=== PATIENT | female | born 1945 | race Caucasian/White ===

== ENCOUNTER → 2018-04-13 11:13 | Outpatient (CLI) | payer MEDICARE, OTHER, SELFPAY ==
--- NOTE | 2018-04-13 11:51 | DI.CT.S_ITS ---
PROCEDURE: CT CHEST ABD PEL W CON INDICATIONS: Staging Endometrial adenocarcinoma TECHNIQUE: After the administration of oral and intravenous contrast, 5 mm thick sections acquired from the lung apices to the symphysis. 5 mm coronal and sagittal reformats were performed, with additional 7 mm coronal MIP reformats through the lungs. For radiation dose reduction, the following was used: automated exposure control, adjustment of mA and/or kV according to patient size. COMPARISON: [facility], US, US PELVIC COMPLETE, 04/03/2018, 15:56. [facility], , PELVIC COMPLETE, 06/27/2017, 15:49. FINDINGS: Image quality: Excellent. CHEST: Lungs and pleura: No acute airspace opacities. There is a 7 mm nodule in the lingula (series 3 image 37) No pleural effusions or pneumothorax. Central and peripheral airways appear patent and normal in caliber. Mediastinum: Heart size is normal. No pericardial effusion. No mediastinal or hilar adenopathy by size criteria. Thoracic aorta and central pulmonary arteries are normal in size. Esophagus is normal in caliber. No hiatal hernia. Chest wall: No axillary or supraclavicular adenopathy by size criteria. Thyroid gland is normal. ABDOMEN: Solid organs: There is diffuse hepatic fatty infiltration. Liver is normal in size and enhancement. Gallbladder is surgically removed. Biliary system is non dilated. Pancreas enhances normally. Spleen is normal in size and enhancement. No adrenal nodules. Kidneys demonstrate normal size and enhancement, without hydronephrosis. Peritoneum and bowel: Bowel loops demonstrate normal wall thickness and caliber. No free fluid or air. Nodes and vessels: No retroperitoneal or mesenteric adenopathy by size criteria. Aorta and inferior vena cava are normal in size. Miscellaneous: No ventral hernias. PELVIS: Genitourinary: Bladder wall thickness is normal. Uterus is normal in size. Endometrium is suboptimally visualized but appears thickened. Miscellaneous: No enlarged inguinal lymph nodes. Small normal sized inguinal lymph nodes bilaterally are most likely reactive. Bones: No suspicious bony lesions. No vertebral body compression fractures. IMPRESSION: 1. Endometrium is suboptimally visualized on CT and may be thickened. 2. A 7 mm lung nodule in lingula. Please see enclosed followup recommendation. 3. Hepatic steatosis. Fleischner Society criteria for SOLID lung nodule followup. Nodule size (mm)Low-risk patientHigh-risk patient?4No follow-up neededFollow-up at 12 mo; if no change, no further follow-up>[id number] CT at 12 mo; if no change, no further follow-up needed.Initial follow-up CT at 6-12 mo, then 18-24 mo if no change. >6-8Initial follow-up CT at 6-12 mo, then 18-24 mo if no change. Initial follow-up CT at 3-6 mo, then 9-12 mo and 24 mo if no change. >8Follow-up CT at 3, 9, 24 mo. Or PET and/or biopsy.Same as for low-risk pts. Dictated by: Swapna Saravia M.D. on 04/13/2018 at 17:17 Approved by: Swapna Saravia M.D. on 04/14/2018 at 10:15
[2018-04-13 12:26] LABS: BUN Creatinine Ratio 24.3 (6-22); Blood Urea Nitrogen 17 mg/dL (7-17); Estimated Glomerular Filt Rate > 60.0 mL/min (>60)
[2018-04-13 12:48] LABS: Cancer Antigen 125 11 U/mL (0-35)
== END ==
PROVIDERS: PCP Family Medicine
DX: Z01.818 Encounter for other preprocedural examination (principal); C54.1 Malignant neoplasm of endometrium; Z90.49 Acquired absence of other specified parts of digestive tract; K76.0 Fatty (change of) liver, not elsewhere classified
CPT/HCPCS: 36415; 71260; 74177; 82565; 84520; 86304; Q9967

== ENCOUNTER 2018-06-15 09:13 | Day surgery (SDC) | payer MEDICARE, OTHER, SELFPAY ==
[2018-06-12 14:46] VITALS: BMI 29.7
--- NOTE | 2018-06-15 | DI.RAD.S_ITS ---
PROCEDURE: XR CHEST 1V INDICATIONS: PORT A CATH TECHNIQUE: One view of the chest was acquired. COMPARISON: None. FINDINGS: Surgical changes and devices: None. Lungs and pleura: No pleural effusions or pneumothorax. Lungs are clear. Mediastinum: Mediastinal contours appear normal. Heart size is normal. Bones and chest wall: No suspicious bony lesions. Overlying soft tissues appear unremarkable. IMPRESSION: No acute process. No evidence of portacatheter. Dictated by: Angie Brewer M.D. on 06/15/2018 at 13:00 Approved by: Angie Brewer M.D. on 06/15/2018 at 13:01
[2018-06-15 09:38] VITALS: BMI 26.6
[2018-06-15 09:43] VITALS: BP 169/69; PULSE 56; RESP 16; TEMP 35.8; O2SAT 99
[2018-06-15] MEDS: LACTATED RINGERS 1,000 ML 42 ML IV (09:57)
--- NOTE | 2018-06-15 10:20 | PM.HP.1 ---
History of Present Illness Date Patient Seen: 06/15/18 Time Patient Seen: 10:20 Chief complaint: port a cath [id number] Narrative: Patient is a woman about received chemotherapy for uterine cancer and I was asked to place a port. Patient History Medical History Uterine cancer (Acute) History of hysterectomy (Acute) Ankle pain (Chronic 2011) Chronic cough (Chronic 2011) Diabetes mellitus (Chronic 2003) Chicken pox (Resolved 1947) Kidney stones (Resolved ~1979) Left ulnar fracture (Resolved ~1989) Measles (Resolved ~1951) Migraines (Resolved ~1970) Mumps (Resolved) Pneumonia (Resolved 2002) Glaucoma (Inactive) Surgical History Anesthesia (Resolved) History of appendectomy (Resolved 1984) History of cholecystectomy (Resolved 1984) History of colonoscopy (Resolved 06/07/17) Status post delivery (Resolved 1973) Status post delivery (Resolved 1975) Family & Social History Family History: Reviewed 06/15/18 by Jet Arango MD Social History: household members spouse Tobacco & Substance use: Smoking Status Never smoker Meds Home Medications Medication Instructions Recorded Confirmed Type metformin [Glucophage] 1,000 mg PO BIDCC #360 tab 04/08/16 06/15/18 Rx glyburide 2.5 mg PO BID #60 tab 07/07/16 06/15/18 Rx losartan 50 mg tablet 50 mg PO DAILY 04/03/18 06/15/18 History simvastatin 20 mg PO BEDTIME 05/25/18 06/15/18 History Allergies Allergy/AdvReac Type Severity Reaction Status Date / Time No Known Drug Allergies Allergy Verified 06/15/18 09:34 Review of Systems Review of Systems No cough or cold. No chest pain or heart problems. No seizures or blackouts. No black or bloody bowel movements. Exam Vital Signs (past 8 hours): - 06/15/18 09:43 Temperature 96.5 F L Pulse Rate 56 L Respiratory Rate 16 Blood Pressure 169/69 H Pulse Oximetry 99 Oxygen Delivery Method Room Air Narrative Exam Narrative: Operative no apparent distress. Lungs are clear to auscultation without rales or rhonchi. Heart regular rate rhythm without murmur gallop. No nodes in the neck or supraclavicular areas. Abdomen is soft nontender without masses. Scars from her a robotic procedure noted. Assessment & Plan Plan: Assessment/Plan Narrative: Patient with endometrioid cancer the uterus post hysterectomy and pelvic node dissection for Port-A-Cath. I have discussed the procedure and rationale with her. Risks of bleeding, infection, DVT which could cause arm swelling or pulmonary embolism, lung collapse all discussed with her. She appears to understand and wishes to proceed.
--- NOTE | 2018-06-15 10:25 | PM.PREOP ---
Pre-operative Note Interval Note History & Physical reviewed/Exam performed by Physician: Yes Changes to H&P: No
[2018-06-15] MEDS: CEFAZOLIN 2 GM/100 ML FROZ.PIGGY IV (10:43)
--- NOTE | 2018-06-15 11:05 | SUR.OPER ---
Supine on padded OR bed, head on pillow, arms gel padded and tucked at side, legs uncrossed, safety belt at thigh, tape over blanket over lower legs .
[2018-06-15] MEDS: LIDOCAINE 1% 30 ML INJ INJ (11:06)
[2018-06-15 12:30] VITALS: BP 147/71; PULSE 65; RESP 18; TEMP 36.1; O2SAT 95
[2018-06-15 12:35] VITALS: BP 149/63; PULSE 60; RESP 18; O2SAT 100
[2018-06-15 12:40] VITALS: BP 162/76; PULSE 60; RESP 16; O2SAT 100
[2018-06-15 12:45] VITALS: BP 148/85; PULSE 61; RESP 18; O2SAT 100
[2018-06-15 12:50] VITALS: BP 165/84; PULSE 58; RESP 18; O2SAT 100
--- NOTE | 2018-06-15 13:09 | P.OP_ITS ---
Operative Date/Time/Diagnoses Date of procedure: 06/15/18 Time of procedure: 12:30 Pre-op diagnosis: Uterine cancer Post-op diagnosis: same Procedure & Clinicians Procedure: Attempted placement of Port-A-Cath. Procedure had to be abandoned due to the inability to get a guidewire to pass through into the vein. Please see details below. Same procedure as scheduled: Yes Indications: Chemo Surgeon: Jet Arango Click Yes if Unassisted: Yes Anesthesia Type: General Operative Notes Findings: Unable to pass a guidewire through the internal jugular or the subclavian vein despite excellent blood return Closure Type: primary Specimen(s): none sent Estimated Blood Loss (mL): 30 Blood products transfused: none Procedure in detail: The patient was placed supine on the operating room table and underwent general LMA anesthesia. She was prepped and draped in usual fashion. Local anesthetic was infiltrated a field block fashion beneath the left clavicle. Transverse incision was made and a needle inserted on the 1st attempt into the subclavian vein. Attempt to pass a guidewire and it would not pass. Thinking I just come out of the vein I reinserted it happened multiple times in multiple locations and could not get the guidewire to pass despite good blood return in the needle. I abandoned this approach went to the neck. I infiltrated local anesthetic and made a small transverse incision near the junction of the heads of the sternocleidomastoid muscle using an ultrasound identified the jugular vein and on multiple a occasions aspirated blood and appeared to be in the jugular vein. However he could not pass a guidewire through the needle that it would pass appropriately. I defer low Orange be it seemed to come out the end and stop. I went back to the subclavian 1 last time and again was able to cannulate the vein and pass a guidewire and it appeared to come out into the base of the neck. I could not to go any further further. A attempted to pass and 14 gauge over the wire and the wire and performed a venogram but I was unable to get the catheter to adequately pass under the clavicle. I therefore abandoned the procedure. She will require venogram before attempting anything on the left in the future. I talked to oncology and they will provide IV access so that she can start her chemotherapy and we will order venogram. They will contact the patient regarding her chemotherapy. Complications: none Condition: stable Disposition: PACU Plan for aftercare: Follow-up with Oncology and with me
--- NOTE | 2018-06-15 13:42 | SUR.PHASEII ---
Assumed care from Leia LIU. Nubia LIU from oncology set up future appointment for PICC placement on Tuesday prior to pt's chemo appointment. Pt's felt they would be unable to make appointment, Nubia called back and pt discharged from here and to go to Center to talk to Nubia and make a plan. Operative sites c/d/i. Pt steady when up. Pt left in stable condition.
== END 2018-06-15 13:35 | disposition home or self-care (01) ==
PROVIDERS: PCP Family Medicine; Visit Provider Specialist
PROC: (CPT 36561; principal; 2018-06-15 10:15)
DX: C55 Malignant neoplasm of uterus, part unspecified (principal); Z53.09 Procedure and treatment not carried out because of other contraindication; E11.9 Type 2 diabetes mellitus without complications; Z79.84 Long term (current) use of oral hypoglycemic drugs
CPT/HCPCS: 36561; 71045; 76000; C1788; J0690; J1100; J1644; J2250; J2405; J2704; J3010

== ENCOUNTER → 2018-06-22 09:02 | Outpatient (CLI) | payer MEDICARE, OTHER, SELFPAY ==
--- NOTE | 2018-06-22 09:04 | DI.RAD.S_ITS ---
PROCEDURE: FL GUIDED PICC PLACEMENT INDICATIONS: ENDOMETRIAL ENDOCARCINOMA COMPARISON: None. FINDINGS: PICC was placed by the intravenous therapy team from the right side. Fluoroscopic spot film demonstrates tip of PICC in the lower SVC. IMPRESSION: Tip of PICC lies within the lower SVC. Dictated by: Luigi Madden M.D. on 06/22/2018 at 12:11 Approved by: Luigi Madden M.D. on 06/22/2018 at 12:12
== END ==
PROVIDERS: PCP Family Medicine; Visit Provider Internal Medicine Hematology & Oncology
DX: Z45.2 Encounter for adjustment and management of vascular access device (principal); C54.1 Malignant neoplasm of endometrium
CPT/HCPCS: 36573; 77001

== ENCOUNTER → 2019-06-14 13:40 | Oncology outpatient (ONC) | payer MEDICARE, OTHER, SELFPAY ==
[2018-05-25 13:36] VITALS: BP 132/81; PULSE 71; RESP 18; TEMP 37; O2SAT 100
--- NOTE | 2018-05-25 13:47 | ONC.CONS ---
History of Present Illness - Data of Consult Patient: new to practice Consult date: 05/25/18 Requesting Physician: Constance Courtney MD Primary Care Provider: Carlotta Moreira MD - Consult Narrative Reason for consult: Stage IB endometrioid endometrial adenocarcinoma Narrative: Irene Snell is a 73 year old female. Emma, as she prefers to be called, presented with postmenopausal bleeding. 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 Preoperative CT scan and CA-125 were within normal limits. Patient underwent robotic-assisted hysterectomy, bilateral salpingo-oophorectomy, and bilateral pelvic lymph node dissection. The final pathology showed endometrioid carcinoma, FIGO G3, greatest diameter of 4.5 cm, located at the endometrium of fundus, depth of invasion of myometrial 1.7 cm with myometrial thickness of 2.5 cm, percentage of myometrial invasion 68%, negative for carcinoma at the cervix and the endocervix, no extra-uterine involvement, venous/lymphatic invasion present, no lymph node metastasis (0/16), no para-aortic lymph nodes submitted. AJCC eighth edition staging pT1b pN0 pMx, and FIGO stage IB. Postoperatively, patient was evaluated by Dr. Courtney on 05/11/2018. Dr. Díaz is had a long and in-depth discussion with the patient. Dr. Courtney recommended between 3 and 6 cycles of every 3 week carboplatin and paclitaxel depending on tolerance. The consensus from [facility] Tumor Board was to proceed with 6 cycles with vaginal cuff brachytherapy, but would stop chemo earlier if not tolerated. Dr. Courtney also discussed with the patient about how to prevent neuropathy with consideration for wearing iced gloves and booties during Taxol infusion to help reduce the risk of neuropathy. Dr. Courtney referred the patient to [facility] for evaluation of brachytherapy in between cycle 3 and 4 of chemotherapy. Due to transportation convenience, patient was then referred to [facility] for chemotherapy. Patient reports pain?: No Home Medications and Allergies Home Medications Medication Instructions Recorded Confirmed Type metformin [Glucophage] 1,000 mg PO BIDCC #360 tab 04/08/16 Rx Glucose: Test Strips 0 str BID #200 str 07/07/16 Rx Lancets 0 dev BID #200 07/07/16 Rx glyburide 2.5 mg PO BID #60 tab 07/07/16 Rx losartan 50 mg tablet 50 mg PO DAILY 04/03/18 04/03/18 History simvastatin 20 mg PO SEE INSTRUCTIONS 05/25/18 History Allergies Allergy/AdvReac Type Severity Reaction Status Date / Time No Known Allergies Allergy Uncoded 04/03/18 14:53 Medical History - Medical, Surgical, Family History Medical History: Medical History (Last Updated 04/03/18 @ 10:23 by Chelle Leon) Ankle pain Onset Date: 2011 Chronic cough Onset Date: 2011 Diabetes mellitus Onset Date: 2003 Chicken pox Onset Date: 1947 Kidney stones Onset Date: ~1979 Left ulnar fracture Onset Date: ~1989 Measles Onset Date: ~1951 Migraines Onset Date: ~1970 Mumps Pneumonia Onset Date: 2002 Glaucoma Surgical History: Surgical History (Last Updated 04/03/18 @ 11:15 by Chelle Leon) Anesthesia History of appendectomy Onset Date: 1984 History of cholecystectomy Onset Date: 1984 History of colonoscopy Onset Date: 06/07/17 Status post delivery Onset Date: 1973 Status post delivery Onset Date: 1975 Family History: Family History Father Diabetes mellitus Heart disease Hypertension Stroke Mother Colon cancer Heart disease Sister Age: 71 Mental health problem Stroke Brain aneurysm Heavy smoker Memory changes Nerve pain Grandfather Colon cancer Grandmother No problems noted. Grandfather No problems noted. Grandmother No problems noted. Family/Other No problems noted. - Social History Smoking Status: Never smoker Review of Systems All systems PM: reviewed and no additional remarkable complaints except as stated Exam Vital signs: Last Vital Signs Temp 98.6 F 05/25/18 13:36 Pulse 71 05/25/18 13:36 Resp 18 05/25/18 13:36 BP 132/81 05/25/18 13:36 Pulse Ox 100 05/25/18 13:36 ECOG 1 Narrative: Constitutional: WDWN, NAD, average body habitus, well groomed, pleasant and cooperative, very nervous and anxious. HEENT: NCAT, EOMI, PERRLA, anicteric sclera, no hearing difficulty; oral mucus membrane moist and without ulcers. Neck: Supple, symmetrical, and tracheal midline; No palpable thyromegaly and no palpable lymph nodes. Respiratory: No use of accessory muscles. Clear to auscultation, and no wheezes or rales or rubs. Cardiovascular: Regular rate and rhythm, S1 and S2 normal, no murmurs gallops or rubs. No JVD. No pitting edema of lower extremities. Abdomen: Soft, nontender, non-distended, bowel sounds normal, no palpable organomegaly, no hernia, no palpable masses. Lower extremities: No palpable pedal edema. Lymphatic: no palpable lymph nodes in the neck, axillae, or groins. Musculoskeletal: normal gait and station, no clubbing, no cyanosis, no pitting edema. Skin: no rashes, no ulcers, no petechiae Neurological: Awake and alert and oriented x3. CN II-XII grossly intact. No focal motor or sensory deficit. Psychiatric: Good judgment, good insight, normal affect, normal thought process, cooperative, no depression, very anxious and nervous. Results - Labs Pending. Assessment and Plan (1) Endometrioid adenocarcinoma of uterus Problem details: Presented with postmenopausal bleeding. Diagnosed with endometrioid endometrial adenocarcinoma after endometrial biopsy. Status post robotic-assisted hysterectomy, bilateral salpingo-oophorectomy, and bilateral pelvic lymph node dissection. The final pathology: edometrioid carcinoma, FIGO G3, pT1b pN0 pMx (AJCC 8th ed)/FIGO stage IB. Assessment: Patient came in here today accompanied by his . She is very nervous and anxious. I spent at least 45 min talking with her and her . Both of them asked several questions which I answered to their satisfaction to the best of my knowledge. I explained to the patient that she has a high-grade FIGO stage IB endometrioid carcinoma of the uterus. Because of the high-grade, Dr. Olivares from [facility] recommended chemotherapy with brachytherapy. The consensus from the Tumor Board at also recommended carboplatin and paclitaxel for 6 cycles with brachytherapy in between the third and fourth cycles. Patient and patient's acknowledged the recommendations from the . They also understood that not every patient will be able to complete the full 6 cycles of the chemotherapy. We will try chemotherapy as far as the patient is able to tolerate. Hopefully we will be able to complete a full 6 cycles of chemotherapy. I agree with Dr. Courtney that the chemotherapy may reduce the risk of distant recurrence by at least 50%. Next I talked about some logistics of the chemotherapy. I talked with them that a port is necessary to complete the chemotherapy. I explained to the patient that a port is small device that is put underneath the skin with the tube inserted into the superior vena cava to just above the right atrium but not in the right atrium. It is a safe and easily accessible device and obviate the need for repeated peripheral blood venipuncture.. Patient's mentioned that Dr. Courtney mentioned about the cold gloves and boots for preventing peripheral neuropathy. The have already purchased the glove and boots. I talked with them that I personally do not have the experience with the cold gloves and boots for preventing the peripheral neuropathy. I do not know how effective these devices will be. Theoretically speaking, they should be helpful. But I told them that the cold device sometimes can be very difficult to tolerate. They voiced understanding. Patient has a very strong family history of cancer. His mother was diagnosed with colon cancer and I believe his sister was diagnosed with endometrial cancer. The family history is highly suspicious for possible genetic diseases, for example, Reyes syndrome. I talked with the patient that is part of the recommendation from the [employer]. It is beneficial for their daughter. Patient said that he she has not decided yet on whether she would like to proceed with genetic testing at this moment. They do not think it is a critical issue at present. Plan: 1. Port placement 2. RadOnc follow-up at [facility] as scheduled 3. RTC after port placement to initiate chemotherapy with Carbo/Pac every 3 weeks, CBC, CMP
--- NOTE | 2018-05-25 14:05 | P.CONONC_ITS ---
History of Present Illness - Data of Consult Patient: new to practice Consult date: 05/25/18 Requesting Physician: Constance Courtney MD Primary Care Provider: Carlotta Moreira MD - Consult Narrative Reason for consult: Stage IB endometrioid endometrial adenocarcinoma Narrative: Irene Snell is a 73 year old female. Emma, as she prefers to be called , presented with postmenopausal bleeding. 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 Preoperative CT scan and CA-125 were within normal limits. Patient underwent robotic-assisted hysterectomy, bilateral salpingo-oophorectomy, and bilateral pelvic lymph node dissection. The final pathology showed endometrioid carcinoma , FIGO G3, greatest diameter of 4.5 cm, located at the endometrium of fundus, depth of invasion of myometrial 1.7 cm with myometrial thickness of 2.5 cm, percentage of myometrial invasion 68%, negative for carcinoma at the cervix and the endocervix, no extra-uterine involvement, venous/lymphatic invasion present , no lymph node metastasis (0/16), no para-aortic lymph nodes submitted. AJCC eighth edition staging pT1b pN0 pMx, and FIGO stage IB. Postoperatively, patient was evaluated by Dr. Courtney on 05/11/2018. Dr. Díaz is had a long and in-depth discussion with the patient. Dr. Courtney recommended between 3 and 6 cycles of every 3 week carboplatin and paclitaxel depending on tolerance. The consensus from [facility]necological Oncology Tumor Board was to proceed with 6 cycles with vaginal cuff brachytherapy, but would stop chemo earlier if not tolerated. Dr. Courtney also discussed with the patient about how to prevent neuropathy with consideration for wearing iced gloves and booties during Taxol infusion to help reduce the risk of neuropathy. Dr. Courtney referred the patient to [facility] for evaluation of brachytherapy in between cycle 3 and 4 of chemotherapy. Due to transportation convenience, patient was then referred to [facility] for chemotherapy. Patient reports pain?: No Home Medications and Allergies Home Medications Medication Instructions Recorded Confirmed Type metformin [Glucophage] 1,000 mg PO BIDCC #360 tab 04/08/16 Rx Glucose: Test Strips 0 str BID #200 str 07/07/16 Rx Lancets 0 dev BID #200 07/07/16 Rx glyburide 2.5 mg PO BID #60 tab 07/07/16 Rx losartan 50 mg tablet 50 mg PO DAILY 04/03/18 04/03/18 History simvastatin 20 mg PO SEE INSTRUCTIONS 05/25/18 History Allergies Allergy/AdvReac Type Severity Reaction Status Date / Time No Known Allergies Allergy Uncoded 04/03/18 14:53 Medical History - Medical, Surgical, Family History Medical History: Medical History (Last Updated 04/03/18 @ 10:23 by Chelle Leon) Ankle pain Onset Date: 2011 Chronic cough Onset Date: 2011 Diabetes mellitus Onset Date: 2003 Chicken pox Onset Date: 1947 Kidney stones Onset Date: ~1979 Left ulnar fracture Onset Date: ~1989 Measles Onset Date: ~1951 Migraines Onset Date: ~1970 Mumps Pneumonia Onset Date: 2002 Glaucoma Surgical History: Surgical History (Last Updated 04/03/18 @ 11:15 by Chelle Leon) Anesthesia History of appendectomy Onset Date: 1984 History of cholecystectomy Onset Date: 1984 History of colonoscopy Onset Date: 06/07/17 Status post delivery Onset Date: 1973 Status post delivery Onset Date: 1975 Family History: Family History Father Diabetes mellitus Heart disease Hypertension Stroke Mother Colon cancer Heart disease Sister Age: 71 Mental health problem Stroke Brain aneurysm Heavy smoker Memory changes Nerve pain Grandfather Colon cancer Grandmother No problems noted. Grandfather No problems noted. Grandmother No problems noted. Family/Other No problems noted. - Social History Smoking Status: Never smoker Review of Systems All systems PM: reviewed and no additional remarkable complaints except as stated Exam Vital signs: Last Vital Signs Temp 98.6 F 05/25/18 13:36 Pulse 71 05/25/18 13:36 Resp 18 05/25/18 13:36 BP 132/81 05/25/18 13:36 Pulse Ox 100 05/25/18 13:36 ECOG 1 Narrative: Constitutional: WDWN, NAD, average body habitus, well groomed, pleasant and cooperative, very nervous and anxious. HEENT: NCAT, EOMI, PERRLA, anicteric sclera, no hearing difficulty; oral mucus membrane moist and without ulcers. Neck: Supple, symmetrical, and tracheal midline; No palpable thyromegaly and no palpable lymph nodes. Respiratory: No use of accessory muscles. Clear to auscultation, and no wheezes or rales or rubs. Cardiovascular: Regular rate and rhythm, S1 and S2 normal, no murmurs gallops or rubs. No JVD. No pitting edema of lower extremities. Abdomen: Soft, nontender, non-distended, bowel sounds normal, no palpable organomegaly, no hernia, no palpable masses. Lower extremities: No palpable pedal edema. Lymphatic: no palpable lymph nodes in the neck, axillae, or groins. Musculoskeletal: normal gait and station, no clubbing, no cyanosis, no pitting edema. Skin: no rashes, no ulcers, no petechiae Neurological: Awake and alert and oriented x3. CN II-XII grossly intact. No focal motor or sensory deficit. Psychiatric: Good judgment, good insight, normal affect, normal thought process , cooperative, no depression, very anxious and nervous. Results - Labs Pending. Assessment and Plan (1) Endometrioid adenocarcinoma of uterus Problem details: Presented with postmenopausal bleeding. Diagnosed with endometrioid endometrial adenocarcinoma after endometrial biopsy. Status post robotic-assisted hysterectomy, bilateral salpingo-oophorectomy, and bilateral pelvic lymph node dissection. The final pathology: edometrioid carcinoma, FIGO G3, pT1b pN0 pMx ( AJCC 8th ed)/FIGO stage IB. Assessment: Patient came in here today accompanied by his . She is very nervous and anxious. I spent at least 45 min talking with her and her . Both of them asked several questions which I answered to their satisfaction to the best of my knowledge. I explained to the patient that she has a high-grade FIGO stage IB endometrioid carcinoma of the uterus. Because of the high-grade, Dr. Olivares from [facility] recommended chemotherapy with brachytherapy. The consensus from the Tumor Board at also recommended carboplatin and paclitaxel for 6 cycles with brachytherapy in between the third and fourth cycles. Patient and patient's acknowledged the recommendations from the . They also understood that not every patient will be able to complete the full 6 cycles of the chemotherapy. We will try chemotherapy as far as the patient is able to tolerate. Hopefully we will be able to complete a full 6 cycles of chemotherapy. I agree with Dr. Courtney that the chemotherapy may reduce the risk of distant recurrence by at least 50%. Next I talked about some logistics of the chemotherapy. I talked with them that a port is necessary to complete the chemotherapy. I explained to the patient that a port is small device that is put underneath the skin with the tube inserted into the superior vena cava to just above the right atrium but not in the right atrium. It is a safe and easily accessible device and obviate the need for repeated peripheral blood venipuncture.. Patient's mentioned that Dr. Courtney mentioned about the cold gloves and boots for preventing peripheral neuropathy. The have already purchased the glove and boots. I talked with them that I personally do not have the experience with the cold gloves and boots for preventing the peripheral neuropathy. I do not know how effective these devices will be. Theoretically speaking, they should be helpful. But I told them that the cold device sometimes can be very difficult to tolerate. They voiced understanding. Patient has a very strong family history of cancer. His mother was diagnosed with colon cancer and I believe his sister was diagnosed with endometrial cancer. The family history is highly suspicious for possible genetic diseases, for example, Reyes syndrome. I talked with the patient that is part of the recommendation from the [employer]. It is beneficial for their daughter. Patient said that he she has not decided yet on whether she would like to proceed with genetic testing at this moment. They do not think it is a critical issue at present. Plan: 1. Port placement 2. Rad[facility]c follow-up at [facility] as scheduled 3. RTC after port placement to initiate chemotherapy with Carbo/Pac every 3 weeks, CBC, CMP
--- NOTE | 2018-06-02 15:56 | ONC.SCHED ---
CARBO [id number] AND PACL [id number] [facility] [place]
--- NOTE | 2018-06-07 14:30 | ONC.NAV ---
Late Entry: Visit 06/05/18 Description: Met with pt, per her request, to discuss concerns and questions that she was having re: starting treatment, fears of side-effects, caregiver coping needs, and resources available for support. Completed a medical priority ferry boarding pass and sent to her following this visit. No other needs identified at this time. Plan: Ongoing support and monitoring for adjustment to treatment, resource needs and coping support.
--- NOTE | 2018-06-22 11:18 | PM.CHEMOCOU ---
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 She presents today for chemotherapy teaching also her 1st infusions of carboplatin and Taxol every 3 weeks. - General New Chemotherapy Patient: Yes Treatment Plan Reviewed: yes - Chemotherapy Counseling Chemotherapy Counseling: Chemotherapy Education: Irene Snell provided written information on all topics discussed. Written materials printed from www.[facility].[email or web address] and www.[email or web address].org. Irene was given an overview of cancer and mechanism of action of cancer cells, that cancer is caused by cells that are dividing rapidly, and out of control. Traditional chemotherapy works by targeting the fast dividing cells and killing them. Chemotherapy affecting healthy cells dividing quickly causes many of the side effects (hair follicles, bone marrow, mucus membranes). Overview of blood cell functions of white cells to fight infection, red cells to carry oxygen, and platelets to stop bleeding was discussed, and that when bone marrow is affected by chemo, there is a decrease in production of these cells. Home care of the patient following chemotherapy was discussed. Body fluids will be contaminated for 48 hours following treatment, and any body fluids handled by caregivers should be handled wearing gloves, surfaces need to be cleaned with soap and water, any soiled linens or clothing need to be washed separately in hot water, toilet lid should be closed when flushing, person cleaning the toilet should wear gloves. How chemotherapy is administered by the RN?s in the clinic, that orders are double checked by pharmacy and checked again by two RN?s prior to administration. Nurses wear protective gear to prevent exposure to them of the chemotherapy agents which can also cause cancer. Cancer center information discussed and written hand out provided listing on-call oncologist available weekends and after hours triage R.N. hours and infusion room guide. New patient binder given to Irene, which includes clinic names, phone numbers, clinic information, calendar, cancer glossary, and list of resources. Handout on advanced directives Common side effects of chemotherapy were discussed with self care tips for prevention of complications. Information also provided in writing. These included: Low blood counts (anemia, thrombocytopenia, neutropenia) Hair loss (alopecia) Nausea and vomiting Decreased appetite Loss of fertility Diarrhea Mouth sores Constipation Peripheral neuropathy Chemo brain/cognitive changes Fatigue Instructions on when to call your healthcare team or on-call physician immediately: Fever of 100.4 or higher, chills, any signs of infection Shortness of breath, wheezing, difficulty breathing, closing of throat, swelling of face, hives (signs of possible allergic reaction) Chest pain, fast heart beat or feelings of a different heart rhythm Swelling of an extremity with or without pain signs of stroke Instructions on when to call your healthcare team within the next 24 hours Nausea that interferes with ability to eat and unrelieved with prescribed medication Diarrhea (4-6 episodes in 24 hour period). Unusual bleeding or bruising Black or tarry stools, or blood in your stools Blood in the urine pain or burning with urination Extreme fatigue (unable to perform self-care activities) Mouth sores or sore areas in your mouth Bad headache Dizziness or lightheadedness Large weight gain over a short period of time General self-care tips while undergoing treatment discussed were as follows. Written materials were provided covering in detail and additional self care tips. Drink at least 2-3 quarts (8-10 glasses) of no-caffeinated beverages daily unless you are instructed otherwise and empty your bladder frequently Report any concerning symptoms to your healthcare team Avoid crowds and sick people, wash your hands frequently Use a soft bristled toothbrush, rinse three times a day with 1 tsp baking soda or 1 tsp salt mixed with warm water Avoid any mouthwashes or oral and skin products containing alcohol or fragrances Use electric razors to avoid cutting yourself Avoid contact sports or activities that could cause head injury or bleeding Avoid sun exposure, wear SPF 15 or higher, wear protective clothing Get plenty of rest, meter your activities Maintain good nutrition Avoid alcoholic beverages Attend your scheduled appointments and lab draws Treatment regimen reviewed and medications were discussed with attention to specific side effects and self care for the pt?s treatment regimen which includes [carboplatin and taxol]. Irene was provided with literature regarding [carboplatin and taxol] and common side effects. Additionally, Irene was provided with literature regarding the diagnosis of [endometrial adenocarcinoma]. Irene instructed to read literature at home. Keep a list of questions which we are happy to go over at future visits. For any urgent questions please feel free to call any time.
[2018-06-22 11:30] VITALS: BP 152/75; PULSE 70; RESP 18; TEMP 36.8
[2018-06-22 11:32] LABS: Add Manual Diff / Slide Review NO; Basophils Absolute Auto 100 /uL (0-100); Basophils Percent Auto 1.1 % (0-2); Eosinophils Absolute Auto 200 /uL (0-450); Eosinophils Percent Auto 2.8 % (2-4); Hematocrit 38.6 % (36-46); Hemoglobin 12.9 g/dL (12.0-16.0); Lymphocytes Absolute Auto 2300 /uL (1100-4500); Lymphocytes Percent Auto 33.5 % (25-40); Mean Corpuscular HGB Conc 33.5 % (30-36); Mean Corpuscular Hemoglobin 30.3 PG (26-34); Mean Corpuscular Volume 90.2 fL (80-100); Monocytes Absolute Auto 500 /uL (0-900); Monocytes Percent Auto 6.8 % (3-14); Neutrophils Absolute Auto 3900 /uL (1500-7000); Neutrophils Percent Auto 55.8 % (50-75); Platelet Count 286 X10^3/uL (150-400); Red Blood Cell Count 4.27 X10^6/uL (4.0-5.2); Red Cell Distribution Width 13.1 % (11.6-14.8)
[2018-06-22] MEDS: FAMOTIDINE 20 MG/50 ML PIGGYBACK 200 MG IV (11:32)
[2018-06-22] MEDS: ACETAMINOPHEN 325 MG TABLET 650 MG PO (11:38)
[2018-06-22 11:44] LABS: Alanine Aminotransferase 26 IU/L (9-52); Albumin 4.3 g/dL (3.5-5.0); Albumin Globulin Ratio 1.3 (1.0-2.8); Alkaline Phosphatase 70 U/L (38-126); Aspartate Aminotransferase 26 IU/L (14-36); Bilirubin Total 0.9 mg/dL (0.2-1.3); Blood Urea Nitrogen 21 mg/dL (7-17); Calcium 9.8 mg/dL (8.4-10.2); Carbon Dioxide 23 mmol/L (22-32); Chloride 108 mmol/L (98-107); Estimated Glomerular Filt Rate > 60.0 mL/min (>60); Globulin 3.4 g/dL (1.7-4.1); Glucose 85 mg/dL (80-110); HEMOLYSIS < 15 (0-50); Potassium 4.4 mmol/L (3.4-5.1); Total Protein 7.7 g/dL (6.3-8.2)
[2018-06-22] MEDS: DEXAMETHASONE 20 MG in SODIUM CHLORIDE 0.9% 50 ML 220 ML IV (11:52)
[2018-06-22 11:57] LABS: Sodium 142 mmol/L (137-145)
[2018-06-22] MEDS: ONDANSETRON 16 MG in SODIUM CHLORIDE 0.9% 50 ML 232 ML IV (12:17)
[2018-06-22] MEDS: SODIUM CHLORIDE 0.9% 100 ML 21 ML IV (13:09)
--- NOTE | 2018-06-22 17:18 | PC.NURSE ---
PATIENT COMPLETED TAXOL INFUSION AT 1710. NO COMPLAINTS. DISCHARGED WITH .
[2018-06-23 10:38] VITALS: BP 157/81; PULSE 82; RESP 14; TEMP 36.7; O2SAT 95
[2018-06-23] MEDS: DEXAMETHASONE 12 MG in SODIUM CHLORIDE 0.9% 50 ML 212 ML IV (10:48)
[2018-06-23] MEDS: ONDANSETRON 16 MG in SODIUM CHLORIDE 0.9% 50 ML 232 ML IV (11:17)
--- NOTE | 2018-06-23 11:23 | PC.NURSE ---
11:15: NEAR END OF DEXAMETHASONE PREMED INFUSION PATIENT COMPLAINED OF FACIAL FLUSHING AND SOME LIGHT HEADEDNESS. FACE VISIBLY BLOTCHY. VS: BP 132/70, IL 77, RR 20, O2 SATS 96, TEMP:97.8. REPORT MADE TO TRIAGE NR.RSL AND PATIENT INFORMED THAT THIS IS A NORMAL REACTION WNL TO DEXAMETHASONE. LIGHTHEADEDNESS RESOLVED WITHIN MINUTES. FLUSHING CONTINUING AT THIS TIME.
[2018-06-23] MEDS: FOSAPREPITANT 150 MG in SODIUM CHLORIDE 0.9% 150 ML 300 ML IV (11:39)
[2018-06-23] MEDS: CARBOPLATIN IV (13:23)
[2018-06-23] MEDS: SODIUM CHLORIDE 0.9% IV (13:23)
--- NOTE | 2018-06-26 15:36 | PC.NURSE ---
This pt never received an rx for nausea relief when at home. Left msg she is very nauseated. I would be happy to call in something if you indicated drug, dose, sig, and if any refills. Thank you
--- NOTE | 2018-06-26 16:15 | PC.NURSE ---
pt called to report that she wasnt feeling well. Some chills, mild nausea, and legs feeling rubbery. After speaking with Dr Adam, an Rx for zofran 8mg po was called to [facility] in [place] and order obtained for NS 1000 cc IV 1-2 hrs in am of 06/27 or 06/28. Pt will call to let us know which. At this point she does not know if she has a fever and will obtain a thermometer when her Rx is picked up.
[2018-06-27 10:44] VITALS: BP 120/68; PULSE 85; RESP 16; TEMP 36.4; O2SAT 100
[2018-06-27] MEDS: SODIUM CHLORIDE 0.9% 1,000 ML 1000 ML IV (10:47)
[2018-06-27 11:11] LABS: Add Manual Diff / Slide Review NO; Basophils Absolute Auto 0 /uL (0-100); Basophils Percent Auto 0.4 % (0-2); Eosinophils Absolute Auto 200 /uL (0-450); Eosinophils Percent Auto 3.1 % (2-4); Hematocrit 38.5 % (36-46); Hemoglobin 13.3 g/dL (12.0-16.0); Lymphocytes Absolute Auto 1000 /uL (1100-4500); Lymphocytes Percent Auto 14.7 % (25-40); Mean Corpuscular HGB Conc 34.6 % (30-36); Mean Corpuscular Hemoglobin 30.5 PG (26-34); Mean Corpuscular Volume 88.1 fL (80-100); Monocytes Absolute Auto 100 /uL (0-900); Monocytes Percent Auto 0.9 % (3-14); Neutrophils Absolute Auto 5700 /uL (1500-7000); Neutrophils Percent Auto 80.9 % (50-75); Platelet Count 189 X10^3/uL (150-400); Red Blood Cell Count 4.37 X10^6/uL (4.0-5.2); Red Cell Distribution Width 13.1 % (11.6-14.8); White Blood Cell Count 7.1 X10^3/uL (4.5-11.0)
[2018-06-27 11:29] LABS: Alanine Aminotransferase 24 IU/L (9-52); Albumin 4.1 g/dL (3.5-5.0); Albumin Globulin Ratio 1.3 (1.0-2.8); Alkaline Phosphatase 58 U/L (38-126); Aspartate Aminotransferase 22 IU/L (14-36); BUN Creatinine Ratio 36.3 (6-22); Bilirubin Total 0.9 mg/dL (0.2-1.3); Blood Urea Nitrogen 29 mg/dL (7-17); Calcium 9.4 mg/dL (8.4-10.2); Carbon Dioxide 24 mmol/L (22-32); Chloride 99 mmol/L (98-107); Estimated Glomerular Filt Rate > 60.0 mL/min (>60); Globulin 3.2 g/dL (1.7-4.1); Glucose 177 mg/dL (80-110); HEMOLYSIS < 15 (0-50); Potassium 3.8 mmol/L (3.4-5.1); Sodium 134 mmol/L (137-145); Total Protein 7.3 g/dL (6.3-8.2)
[2018-06-29 14:59] LABS: Add Manual Diff / Slide Review NO; Basophils Absolute Auto 0 /uL (0-100); Basophils Percent Auto 1.1 % (0-2); Eosinophils Absolute Auto 300 /uL (0-450); Hematocrit 36.7 % (36-46); Hemoglobin 12.5 g/dL (12.0-16.0); Lymphocytes Absolute Auto 1300 /uL (1100-4500); Lymphocytes Percent Auto 35.7 % (25-40); Mean Corpuscular Hemoglobin 30.3 PG (26-34); Mean Corpuscular Volume 89.1 fL (80-100); Monocytes Absolute Auto 100 /uL (0-900); Monocytes Percent Auto 1.6 % (3-14); Neutrophils Absolute Auto 1900 /uL (1500-7000); Neutrophils Percent Auto 53.6 % (50-75); Platelet Count 189 X10^3/uL (150-400); Red Blood Cell Count 4.12 X10^6/uL (4.0-5.2); Red Cell Distribution Width 12.9 % (11.6-14.8); White Blood Cell Count 3.6 X10^3/uL (4.5-11.0)
[2018-06-29 15:14] LABS: Alanine Aminotransferase 31 IU/L (9-52); Albumin 3.9 g/dL (3.5-5.0); Albumin Globulin Ratio 1.3 (1.0-2.8); Alkaline Phosphatase 59 U/L (38-126); Aspartate Aminotransferase 29 IU/L (14-36); BUN Creatinine Ratio 38.3 (6-22); Bilirubin Total 0.3 mg/dL (0.2-1.3); Blood Urea Nitrogen 23 mg/dL (7-17); Calcium 9.3 mg/dL (8.4-10.2); Carbon Dioxide 22 mmol/L (22-32); Chloride 105 mmol/L (98-107); Estimated Glomerular Filt Rate > 60.0 mL/min (>60); Globulin 3.1 g/dL (1.7-4.1); Glucose 191 mg/dL (80-110); HEMOLYSIS < 15 (0-50); Potassium 4.1 mmol/L (3.4-5.1); Sodium 138 mmol/L (137-145)
--- NOTE | 2018-06-29 15:53 | ONC.PN ---
PN -Subjective Interval history: Irene Snell is a 73 year old female. Emma, as she prefers to be called, presented with postmenopausal bleeding. 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 Preoperative CT scan and CA-125 were within normal limits. Patient underwent robotic-assisted hysterectomy, bilateral salpingo-oophorectomy, and bilateral pelvic lymph node dissection. The final pathology showed endometrioid carcinoma, FIGO G3, greatest diameter of 4.5 cm, located at the endometrium of fundus, depth of invasion of myometrial 1.7 cm with myometrial thickness of 2.5 cm, percentage of myometrial invasion 68%, negative for carcinoma at the cervix and the endocervix, no extra-uterine involvement, venous/lymphatic invasion present, no lymph node metastasis (0/16), no para-aortic lymph nodes submitted. AJCC eighth edition staging pT1b pN0 pMx, and FIGO stage IB. Postoperatively, patient was evaluated by Dr. Courtney on 05/11/2018. Dr. Díaz is had a long and in-depth discussion with the patient. Dr. Courtney recommended between 3 and 6 cycles of every 3 week carboplatin and paclitaxel depending on tolerance. The consensus from [facility]necological Oncology Tumor Board was to proceed with 6 cycles with vaginal cuff brachytherapy, but would stop chemo earlier if not tolerated. Dr. Courtney also discussed with the patient about how to prevent neuropathy with consideration for wearing iced gloves and booties during Taxol infusion to help reduce the risk of neuropathy. Dr. Courtney referred the patient to [facility] for evaluation of brachytherapy in between cycle 3 and 4 of chemotherapy. Due to transportation convenience, patient was then referred to [facility] for chemotherapy. She started Carboplatin (AUC 5) and Paclitaxel 175 mg/m2 on 06/22/2018. Attempted placement of Port-A-Cath on 06/15/[address] Arango. Procedure had to be abandoned due to the inability to get a guidewire to pass through into the vein. A right sided PICC line was inserted. She presents today (06/29/2018) for scheduled follow up visit. She said that she felt very ache,worse than expected. All her previous surgical incisions are hurting and tightening on day 3-5. She presented here at the time and received NS IV which was helpful. She also took Tylenol that also helped. She said that she feels cold all the time. She reports no appetite, and feels gaggy in the throat with some soreness. She reports no fever, no cough, and no chest pain. She said that she feels weak, and spacey, and confused sometime. She reports no nausea and no vomiting. She has mild constipation. - Patient Self-Reported Symptoms SR Constitution: Weight loss/gain - Additional ROS All systems PM: reviewed and no additional remarkable complaints except as stated Home Medications and Allergies Home Medications Medication Instructions Recorded Confirmed Type metformin [Glucophage] 1,000 mg PO BIDCC #360 tab 04/08/16 06/29/18 Rx glyburide 2.5 mg PO BID #60 tab 07/07/16 06/29/18 Rx losartan 50 mg tablet 50 mg PO DAILY 04/03/18 06/29/18 History simvastatin 20 mg PO BEDTIME 05/25/18 06/29/18 History lidocaine HCl [Lidocaine Viscous] 5 ml MUCOUS MEMBRANE BID-QID PRN 06/29/18 06/29/18 Rx #200 ml Allergies Allergy/AdvReac Type Severity Reaction Status Date / Time No Known Drug Allergies Allergy Verified 06/15/18 09:34 Exam Vital signs: Last Vital Signs Temp 98.3 F 06/29/18 17:10 Pulse 80 06/29/18 17:10 Resp 19 06/29/18 17:10 BP 128/81 06/29/18 17:10 Pulse Ox 100 06/29/18 17:10 ECOG 1 Narrative: Constitutional: WDWN, NAD, average body habitus, well groomed, pleasant and cooperative, very nervous and anxious. HEENT: NCAT, EOMI, PERRLA, anicteric sclera, no hearing difficulty; there is a sore at the left posterior oral mucosa anterior to tonsil Neck: Supple, symmetrical, and tracheal midline; No palpable thyromegaly and no palpable lymph nodes. Respiratory: No use of accessory muscles. Clear to auscultation, and no wheezes or rales or rubs. Cardiovascular: Regular rate and rhythm, S1 and S2 normal, no murmurs gallops or rubs. Abdomen: Soft, nontender, non-distended, bowel sounds normal, no palpable organomegaly, no hernia, no palpable masses. Lower extremities: No palpable pedal edema. Lymphatic: no palpable lymph nodes in the neck, axillae, or groins. Musculoskeletal: normal gait and station, no clubbing, no cyanosis, no pitting edema. Skin: no rashes, no ulcers, no petechiae Neurological: Awake and alert and oriented x3. CN II-XII grossly intact. No focal motor or sensory deficit. Psychiatric: Good judgment, good insight, normal affect, normal thought process, cooperative, no depression, very anxious and nervous. Results - Labs Laboratory Last Values WBC 3.6 X10^3/uL (4.5-11.0) L 06/29/18 14:51 RBC 4.12 X10^6/uL (4.0-5.2) 06/29/18 14:51 Hgb 12.5 g/dL (12.0-16.0) 06/29/18 14:51 Hct 36.7 % (36-46) 06/29/18 14:51 MCV 89.1 fL (80-100) 06/29/18 14:51 MCH 30.3 PG (26-34) 06/29/18 14:51 MCHC 34.0 % (30-36) 06/29/18 14:51 RDW 12.9 % (11.6-14.8) 06/29/18 14:51 Plt Count 189 X10^3/uL (150-400) 06/29/18 14:51 Neut % (Auto) 53.6 % (50-75) 06/29/18 14:51 Lymph % (Auto) 35.7 % (25-40) 06/29/18 14:51 Randolph % (Auto) 1.6 % (3-14) L 06/29/18 14:51 Eos % (Auto) 8.0 % (2-4) H 06/29/18 14:51 Baso % (Auto) 1.1 % (0-2) 06/29/18 14:51 Neut # (Auto) 1900 /uL (1065-1886) 06/29/18 14:51 Lymph # (Auto) 1300 /uL (4914-6884) 06/29/18 14:51 Randolph # (Auto) 100 /uL (0-900) 06/29/18 14:51 Eos # (Auto) 300 /uL (0-450) 06/29/18 14:51 Baso # (Auto) 0 /uL (0-100) 06/29/18 14:51 Sodium 138 mmol/L (137-145) 06/29/18 14:51 Potassium 4.1 mmol/L (3.4-5.1) 06/29/18 14:51 Chloride 105 mmol/L (98-107) 06/29/18 14:51 Carbon Dioxide 22 mmol/L (22-32) 06/29/18 14:51 BUN 23 mg/dL (7-17) H 06/29/18 14:51 Creatinine 0.60 mg/dL (0.52-1.04) 06/29/18 14:51 Estimated GFR > 60.0 mL/min (>60) 06/29/18 14:51 BUN/Creatinine Ratio 38.3 (6-22) H 06/29/18 14:51 Glucose 191 mg/dL (80-110) H 06/29/18 14:51 Calcium 9.3 mg/dL (8.4-10.2) 06/29/18 14:51 Total Bilirubin 0.3 mg/dL (0.2-1.3) 06/29/18 14:51 AST 29 IU/L (14-36) 06/29/18 14:51 ALT 31 IU/L (9-52) 06/29/18 14:51 Alkaline Phosphatase 59 U/L (38-126) 06/29/18 14:51 Total Protein 7.0 g/dL (6.3-8.2) 06/29/18 14:51 Albumin 3.9 g/dL (3.5-5.0) 06/29/18 14:51 Globulin 3.1 g/dL (1.7-4.1) 06/29/18 14:51 Albumin/Globulin Ratio 1.3 (1.0-2.8) 06/29/18 14:51 Assessment and Plan (1) Endometrioid adenocarcinoma of uterus Problem details: Presented with postmenopausal bleeding. Diagnosed with endometrioid endometrial adenocarcinoma after endometrial biopsy. Status post robotic-assisted hysterectomy, bilateral salpingo-oophorectomy, and bilateral pelvic lymph node dissection. The final pathology: edometrioid carcinoma, FIGO G3, pT1b pN0 pMx (AJCC 8th ed)/FIGO stage IB. Assessment: Carboplatin AUC 2, paclitaxel 175 mg/m2, [id number], C1D1: 06/22/2018, plan for 6 cycles. It is day 7 today. She apparently has developed mild (grade 1) oral mucositis. No leukopenia. She did not receive Filgrastim. Plan: Lidocaine viscous twice to 4 times a day on an as needed basis. Come back in 1 week recheck CBC CMP. I talked with the patient that I am anticipating that the CBC will continue to decrease during the next week. I encouraged the patient to use salt water to rinse the mouth. (2) Oral mucositis See above discussion.
[2018-06-29 17:10] VITALS: BP 128/81; PULSE 80; RESP 19; TEMP 36.8; O2SAT 100
[2018-07-07 10:05] LABS: Alanine Aminotransferase 32 IU/L (9-52); Albumin 4.1 g/dL (3.5-5.0); Albumin Globulin Ratio 1.4 (1.0-2.8); Alkaline Phosphatase 64 U/L (38-126); Aspartate Aminotransferase 23 IU/L (14-36); Bilirubin Total 0.3 mg/dL (0.2-1.3); Blood Urea Nitrogen 20 mg/dL (7-17); Calcium 9.3 mg/dL (8.4-10.2); Carbon Dioxide 22 mmol/L (22-32); Chloride 106 mmol/L (98-107); Estimated Glomerular Filt Rate > 60.0 mL/min (>60); Glucose 151 mg/dL (80-110); HEMOLYSIS < 15 (0-50); Sodium 140 mmol/L (137-145); Total Protein 7.1 g/dL (6.3-8.2)
[2018-07-07 10:21] VITALS: BP 160/77; PULSE 74; RESP 19; TEMP 36.6; O2SAT 100
[2018-07-07 10:21] LABS: Hematocrit 41.4 % (36-46); Mean Corpuscular HGB Conc 33.8 % (30-36); Mean Corpuscular Hemoglobin 30.3 PG (26-34); Mean Corpuscular Volume 89.6 fL (80-100); Platelet Count 215 X10^3/uL (150-400); Red Blood Cell Count 4.62 X10^6/uL (4.0-5.2); Red Cell Distribution Width 12.8 % (11.6-14.8); White Blood Cell Count 2.4 X10^3/uL (4.5-11.0)
[2018-07-07 10:26] LABS: Add Manual Diff / Slide Review YES
[2018-07-07 11:00] LABS: Neutrophils Absolute Manual 552 /uL (3000-5900); Nucleated Red Blood Cells 1 #/Diff; Total Cells Counted 100
[2018-07-07 11:01] LABS: Tear Drop Cells 1+
[2018-07-07 11:02] LABS: Anisocytosis 1+; Polychromasia 1+
--- NOTE | 2018-07-07 11:35 | ONC.PN ---
PN -Subjective Interval history: Irene Snell is a 73 year old female here for scheduled follow up visit. She said she feels somewhat tired. But no fever and no chills. Patient does have some sore throat. She has not received the lidocaine viscous yet. Patient denies any shortness of breath or chest pain. She denies any abdominal pain diarrhea or constipation. Oncology History Emma, as she prefers to be called, presented with postmenopausal bleeding. 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 Preoperative CT scan and CA-125 were within normal limits. Patient underwent robotic-assisted hysterectomy, bilateral salpingo-oophorectomy, and bilateral pelvic lymph node dissection. The final pathology showed endometrioid carcinoma, FIGO G3, greatest diameter of 4.5 cm, located at the endometrium of fundus, depth of invasion of myometrial 1.7 cm with myometrial thickness of 2.5 cm, percentage of myometrial invasion 68%, negative for carcinoma at the cervix and the endocervix, no extra-uterine involvement, venous/lymphatic invasion present, no lymph node metastasis (0/16), no para-aortic lymph nodes submitted. AJCC eighth edition staging pT1b pN0 pMx, and FIGO stage IB. Postoperatively, patient was evaluated by Dr. Courtney on 05/11/2018. Dr. Díaz is had a long and in-depth discussion with the patient. Dr. Courtney recommended between 3 and 6 cycles of every 3 week carboplatin and paclitaxel depending on tolerance. The consensus from [facility] Gynecological Oncology Tumor Board was to proceed with 6 cycles with vaginal cuff brachytherapy, but would stop chemo earlier if not tolerated. Dr. Courtney also discussed with the patient about how to prevent neuropathy with consideration for wearing iced gloves and booties during Taxol infusion to help reduce the risk of neuropathy. Dr. Courtney referred the patient to [facility] for evaluation of brachytherapy in between cycle 3 and 4 of chemotherapy. Due to transportation convenience, patient was then referred to [facility] for chemotherapy. She started Carboplatin (AUC 5) and Paclitaxel 175 mg/m2 on 06/22/2018. Attempted placement of Port-A-Cath on 06/15/[address] Arango. Procedure had to be abandoned due to the inability to get a guidewire to pass through into the vein. A right sided PICC line was inserted. She presents today (06/29/2018) for scheduled follow up visit. She said that she felt very ache,worse than expected. All her previous surgical incisions are hurting and tightening on day 3-5. She presented here at the time and received NS IV which was helpful. She also took Tylenol that also helped. She said that she feels cold all the time. She reports no appetite, and feels gaggy in the throat with some soreness. She reports no fever, no cough, and no chest pain. She said that she feels weak, and spacey, and confused sometime. She reports no nausea and no vomiting. She has mild constipation. - Patient Self-Reported Symptoms SR Constitution: Weight loss/gain SR ears, nose, mouth, throat issues: Changes in taste SR Skin issues: Skin rash or itching SR Gastrointestinal issues: Poor or no appetite, Change in bowel pattern, Nausea SR Musculoskeletal issues: Cold hands or feet SR Neuro issues: Headache, Tremors or shaking - Additional ROS All systems PM: reviewed and no additional remarkable complaints except as stated Home Medications and Allergies Home Medications Medication Instructions Recorded Confirmed Type metformin [Glucophage] 1,000 mg PO BIDCC #360 tab 04/08/16 06/29/18 Rx glyburide 2.5 mg PO BID #60 tab 07/07/16 06/29/18 Rx losartan 50 mg tablet 50 mg PO DAILY 04/03/18 06/29/18 History simvastatin 20 mg PO BEDTIME 05/25/18 06/29/18 History lidocaine HCl [Lidocaine Viscous] 5 ml MUCOUS MEMBRANE BID-QID PRN 06/29/18 06/29/18 Rx #200 ml acetaminophen [Tylenol] 325 mg PO Q6H PRN 07/07/18 07/07/18 History Allergies Allergy/AdvReac Type Severity Reaction Status Date / Time No Known Drug Allergies Allergy Verified 06/15/18 09:34 Exam Vital signs: Last Vital Signs Temp 97.9 F 07/07/18 10:21 Pulse 74 07/07/18 10:21 Resp 19 07/07/18 10:21 BP 160/77 H 07/07/18 10:21 Pulse Ox 100 07/07/18 10:21 ECOG 1 Narrative: Constitutional: WDWN, NAD, average body habitus, well groomed, pleasant and cooperative, very nervous and anxious. HEENT: NCAT, EOMI, PERRLA, anicteric sclera, no hearing difficulty; there is a sore at the left posterior oral mucosa anterior to tonsil Neck: Supple, symmetrical, and tracheal midline; No palpable thyromegaly and no palpable lymph nodes. Respiratory: No use of accessory muscles. Clear to auscultation, and no wheezes or rales or rubs. Cardiovascular: Regular rate and rhythm, S1 and S2 normal, no murmurs gallops or rubs. Abdomen: Soft, nontender, non-distended, bowel sounds normal, no palpable organomegaly, no hernia, no palpable masses. Lower extremities: No palpable pedal edema. Lymphatic: no palpable lymph nodes in the neck, axillae, or groins. Musculoskeletal: normal gait and station, no clubbing, no cyanosis, no pitting edema. Skin: no rashes, no ulcers, no petechiae Neurological: Awake and alert and oriented x3. CN II-XII grossly intact. No focal motor or sensory deficit. Psychiatric: Good judgment, good insight, normal affect, normal thought process, cooperative, no depression, very anxious and nervous. Results - Labs Laboratory Last Values WBC 2.4 X10^3/uL (4.5-11.0) L 07/07/18 09:45 RBC 4.62 X10^6/uL (4.0-5.2) 07/07/18 09:45 Hgb 14.0 g/dL (12.0-16.0) 07/07/18 09:45 Hct 41.4 % (36-46) 07/07/18 09:45 MCV 89.6 fL (80-100) 07/07/18 09:45 MCH 30.3 PG (26-34) 07/07/18 09:45 MCHC 33.8 % (30-36) 07/07/18 09:45 RDW 12.8 % (11.6-14.8) 07/07/18 09:45 Plt Count 215 X10^3/uL (150-400) 07/07/18 09:45 Neut % (Auto) Not Reportable 07/07/18 09:45 Lymph % (Auto) Not Reportable 07/07/18 09:45 Camp % (Auto) Not Reportable 07/07/18 09:45 Eos % (Auto) Not Reportable 07/07/18 09:45 Baso % (Auto) Not Reportable 07/07/18 09:45 Neut # (Auto) 1900 /uL (6548-1734) 06/29/18 14:51 Lymph # (Auto) Not Reportable 07/07/18 09:45 Camp # (Auto) Not Reportable 07/07/18 09:45 Eos # (Auto) 300 /uL (0-450) 06/29/18 14:51 Baso # (Auto) Not Reportable 07/07/18 09:45 Total Counted 100 07/07/18 09:45 Seg Neutrophils % 22.0 % (38-70) L 07/07/18 09:45 Band Neutrophils % 1.0 % (3-7) L 07/07/18 09:45 Lymphocytes % (Manual) 62.0 % (25-45) H 07/07/18 09:45 Monocytes % (Manual) 10.0 % (2-11) 07/07/18 09:45 Eosinophils % (Manual) 4.0 % (2-4) 07/07/18 09:45 Basophils % (Manual) 1.0 % (0-1) 07/07/18 09:45 Neutrophils # (Manual) 552 /uL (7741-9656) L 07/07/18 09:45 Nucleated RBCs 1 #/Diff (-0) H 07/07/18 09:45 RBC Morphology See below 07/07/18 09:45 Polychromasia 1+ H 07/07/18 09:45 Anisocytosis 1+ H 07/07/18 09:45 Tear Drop Cells 1+ H 07/07/18 09:45 Sodium 140 mmol/L (137-145) 07/07/18 09:45 Potassium 4.0 mmol/L (3.4-5.1) 07/07/18 09:45 Chloride 106 mmol/L (98-107) 07/07/18 09:45 Carbon Dioxide 22 mmol/L (22-32) 07/07/18 09:45 BUN 20 mg/dL (7-17) H 07/07/18 09:45 Creatinine 0.50 mg/dL (0.52-1.04) L 07/07/18 09:45 Estimated GFR > 60.0 mL/min (>60) 07/07/18 09:45 BUN/Creatinine Ratio 40.0 (6-22) H 07/07/18 09:45 Glucose 151 mg/dL (80-110) H 07/07/18 09:45 Calcium 9.3 mg/dL (8.4-10.2) 07/07/18 09:45 Total Bilirubin 0.3 mg/dL (0.2-1.3) 07/07/18 09:45 AST 23 IU/L (14-36) 07/07/18 09:45 ALT 32 IU/L (9-52) 07/07/18 09:45 Alkaline Phosphatase 64 U/L (38-126) 07/07/18 09:45 Total Protein 7.1 g/dL (6.3-8.2) 07/07/18 09:45 Albumin 4.1 g/dL (3.5-5.0) 07/07/18 09:45 Globulin 3.0 g/dL (1.7-4.1) 07/07/18 09:45 Albumin/Globulin Ratio 1.4 (1.0-2.8) 07/07/18 09:45 Assessment and Plan (1) Endometrioid adenocarcinoma of uterus Problem details: Presented with postmenopausal bleeding. Diagnosed with endometrioid endometrial adenocarcinoma after endometrial biopsy. Status post robotic-assisted hysterectomy, bilateral salpingo-oophorectomy, and bilateral pelvic lymph node dissection. The final pathology: edometrioid carcinoma, FIGO G3, pT1b pN0 pMx (AJCC 8th ed)/FIGO stage IB. Assessment: She is now undergoing adjuvant chemotherapy with Carboplatin (AUC 5), Paclitaxel 175 mg/m2, [id number]. C1D1 was 06/22/2018.The plan is 6 cycles. I reviewed the laboratory tests with the patient. Patient clearly has developed declining absolute neutropenia/leukopenia. Clinically there is no evidence of fever or chills or infection. I talked with the patient that I will provide prophylactic Levaquin for the next 1-2 weeks. I will have the patient to see Paloma next to repeat blood work. Plan: 1. Levaquin 500 mg daily x 14 days 2. RTC in one week, see ARTIST CONSULTANT Paloma, repeat CBC, CMP 3. RTC 07/17/2018, cycle 2#, with neulasta support, CBC, CMP (2) Chemotherapy induced neutropenia Assessment and Plan: Related to chemotherapy. Levaquin 500 mg daily x 14 days. CBC, CMP in one week, see ARTIST CONSULTANT Paloma. I have instructed patient to call or go to ER if high fever or chills.
[2018-07-14 09:21] LABS: Add Manual Diff / Slide Review NO; Basophils Absolute Auto 0 /uL (0-100); Basophils Percent Auto 0.5 % (0-2); Eosinophils Absolute Auto 100 /uL (0-450); Eosinophils Percent Auto 1.5 % (2-4); Hematocrit 36.1 % (36-46); Hemoglobin 12.4 g/dL (12.0-16.0); Lymphocytes Absolute Auto 2100 /uL (1100-4500); Lymphocytes Percent Auto 40.1 % (25-40); Mean Corpuscular HGB Conc 34.4 % (30-36); Mean Corpuscular Hemoglobin 30.5 PG (26-34); Mean Corpuscular Volume 88.9 fL (80-100); Monocytes Absolute Auto 600 /uL (0-900); Neutrophils Absolute Auto 2500 /uL (1500-7000); Neutrophils Percent Auto 46.9 % (50-75); Platelet Count 235 X10^3/uL (150-400); Red Blood Cell Count 4.05 X10^6/uL (4.0-5.2); Red Cell Distribution Width 13.6 % (11.6-14.8); White Blood Cell Count 5.3 X10^3/uL (4.5-11.0)
[2018-07-14 09:36] VITALS: BP 114/71; PULSE 72; RESP 16; TEMP 36.6; O2SAT 97
[2018-07-14 09:38] LABS: Alanine Aminotransferase 28 IU/L (9-52); Albumin 4.1 g/dL (3.5-5.0); Albumin Globulin Ratio 1.3 (1.0-2.8); Alkaline Phosphatase 61 U/L (38-126); Aspartate Aminotransferase 30 IU/L (14-36); BUN Creatinine Ratio 32.5 (6-22); Bilirubin Total 0.4 mg/dL (0.2-1.3); Blood Urea Nitrogen 26 mg/dL (7-17); Calcium 9.4 mg/dL (8.4-10.2); Carbon Dioxide 24 mmol/L (22-32); Chloride 106 mmol/L (98-107); Estimated Glomerular Filt Rate > 60.0 mL/min (>60); Globulin 3.2 g/dL (1.7-4.1); Glucose 93 mg/dL (80-110); HEMOLYSIS 25 (0-50); Potassium 4.5 mmol/L (3.4-5.1); Sodium 139 mmol/L (137-145); Total Protein 7.3 g/dL (6.3-8.2)
--- NOTE | 2018-07-14 10:13 | ONC.APRN.PN ---
PN -Subjective Interval history: Irene Snell is a 73 year old female here for scheduled follow up visit. She carries a diagnosis of endometrioid adenocarcinoma of the uterus, FIGO stage IB. Currently receiving treatment in the form of every 3 week carboplatin and paclitaxel. She recently completed cycle 1 Jun 22 2018, she then returned 07/07/2018 for a scheduled follow up visit with Oncologist Gera at which time she was found to be neutropenic with a WBC of 2.4 neutrophils 552. She was provided with prophylactic levofloxacin 500 mg. She presents today for routine scheduled triage. States she is feeling better than her previous visit. Her pain has improved. She does have loss of appetite however she states ?I am doing the best I can snacking throughout the day?. She said she feels somewhat tired. Denies fever and no chills. Denies cough. No new pain, no new lumps or bumps. No new headache. No issue with bladder or bowel. Oncology History Emma, as she prefers to be called, presented with postmenopausal bleeding. 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 Preoperative CT scan and CA-125 were within normal limits. Patient underwent robotic-assisted hysterectomy, bilateral salpingo-oophorectomy, and bilateral pelvic lymph node dissection. The final pathology showed endometrioid carcinoma, FIGO G3, greatest diameter of 4.5 cm, located at the endometrium of fundus, depth of invasion of myometrial 1.7 cm with myometrial thickness of 2.5 cm, percentage of myometrial invasion 68%, negative for carcinoma at the cervix and the endocervix, no extra-uterine involvement, venous/lymphatic invasion present, no lymph node metastasis (0/16), no para-aortic lymph nodes submitted. AJCC eighth edition staging pT1b pN0 pMx, and FIGO stage IB. Postoperatively, patient was evaluated by Dr. Courtney on 05/11/2018. Dr. Díaz is had a long and in-depth discussion with the patient. Dr. Courtney recommended between 3 and 6 cycles of every 3 week carboplatin and paclitaxel depending on tolerance. The consensus from [facility] Gynecological Oncology Tumor Board was to proceed with 6 cycles with vaginal cuff brachytherapy, but would stop chemo earlier if not tolerated. Dr. Courtney also discussed with the patient about how to prevent neuropathy with consideration for wearing iced gloves and booties during Taxol infusion to help reduce the risk of neuropathy. Dr. Courtney referred the patient to [facility] for evaluation of brachytherapy in between cycle 3 and 4 of chemotherapy. Due to transportation convenience, patient was then referred to [facility] for chemotherapy. She started Carboplatin (AUC 5) and Paclitaxel 175 mg/m2 on 06/22/2018. Attempted placement of Port-A-Cath on 06/15/[address] Arango. Procedure had to be abandoned due to the inability to get a guidewire to pass through into the vein. A right sided PICC line was inserted. She presented (06/29/2018) for scheduled follow up visit. She said that she felt very ache,worse than expected. All her previous surgical incisions are hurting and tightening on day 3-5. She presented here at the time and received NS IV which was helpful. She also took Tylenol that also helped. She said that she feels cold all the time. She reports no appetite, and feels gaggy in the throat with some soreness. She reports no fever, no cough, and no chest pain. She said that she feels weak, and spacey, and confused sometime. She reports no nausea and no vomiting. She has mild constipation. - Patient Self-Reported Symptoms SR Constitution: Weight loss/gain SR ears, nose, mouth, throat issues: Changes in taste SR Skin issues: Hair loss or scalp prob SR Gastrointestinal issues: Poor or no appetite SR Musculoskeletal issues: Cold hands or feet SR Neuro issues: Tremors or shaking Home Medications and Allergies Home Medications Medication Instructions Recorded Confirmed Type metformin [Glucophage] 1,000 mg PO BIDCC #360 tab 04/08/16 06/29/18 Rx glyburide 2.5 mg PO BID #60 tab 07/07/16 06/29/18 Rx losartan 50 mg tablet 50 mg PO DAILY 04/03/18 06/29/18 History simvastatin 20 mg PO BEDTIME 05/25/18 06/29/18 History lidocaine HCl [Lidocaine Viscous] 5 ml MUCOUS MEMBRANE BID-QID PRN 06/29/18 06/29/18 Rx #200 ml acetaminophen [Tylenol] 325 mg PO Q6H PRN 07/07/18 07/07/18 History Allergies Allergy/AdvReac Type Severity Reaction Status Date / Time No Known Drug Allergies Allergy Verified 06/15/18 09:34 Exam - Constitutional positive no acute distress - Routine HEENT Exam Eye: Present: conjunctivae pink. Absent: conjunctival icterus, scleral injection ENT: Present: mucous membranes moist, oropharynx clear - Routine Neck Exam Present: supple. Absent: lymphadenopathy - Routine Respiratory Exam Present: Clear to auscultation bilaterally. Absent: rales, rhonchi, wheezes - Routine Cardiovascular Exam Present: RRR, S1, S2. Absent: murmur, gallop, rubs, JVD - Routine Abdominal Exam Present: soft, normoactive bowel sounds. Absent: tenderness, distended, rebound, guarding, organomegaly - Routine Skin Exam Present: intact, normal turgor. Absent: petechiae, rash - Routine Neurological Exam Present: alert, oriented X3 - Routine Psychiatric Exam Present: normal affect Results - Labs Laboratory Last Values WBC 5.3 X10^3/uL (4.5-11.0) 07/14/18 09:09 RBC 4.05 X10^6/uL (4.0-5.2) 07/14/18 09:09 Hgb 12.4 g/dL (12.0-16.0) 07/14/18 09:09 Hct 36.1 % (36-46) 07/14/18 09:09 MCV 88.9 fL (80-100) 07/14/18 09:09 MCH 30.5 PG (26-34) 07/14/18 09:09 MCHC 34.4 % (30-36) 07/14/18 09:09 RDW 13.6 % (11.6-14.8) 07/14/18 09:09 Plt Count 235 X10^3/uL (150-400) 07/14/18 09:09 Neut % (Auto) 46.9 % (50-75) L 07/14/18 09:09 Lymph % (Auto) 40.1 % (25-40) H 07/14/18 09:09 [place] % (Auto) 11.0 % (3-14) 07/14/18 09:09 Eos % (Auto) 1.5 % (2-4) L 07/14/18 09:09 Baso % (Auto) 0.5 % (0-2) 07/14/18 09:09 Neut # (Auto) 2500 /uL (3878-5677) 07/14/18 09:09 Lymph # (Auto) 2100 /uL (8306-7136) 07/14/18 09:09 [place] # (Auto) 600 /uL (0-900) 07/14/18 09:09 Eos # (Auto) 100 /uL (0-450) 07/14/18 09:09 Baso # (Auto) 0 /uL (0-100) 07/14/18 09:09 Total Counted 100 07/07/18 09:45 Seg Neutrophils % 22.0 % (38-70) L 07/07/18 09:45 Band Neutrophils % 1.0 % (3-7) L 07/07/18 09:45 Lymphocytes % (Manual) 62.0 % (25-45) H 07/07/18 09:45 Monocytes % (Manual) 10.0 % (2-11) 07/07/18 09:45 Eosinophils % (Manual) 4.0 % (2-4) 07/07/18 09:45 Basophils % (Manual) 1.0 % (0-1) 07/07/18 09:45 Neutrophils # (Manual) 552 /uL (8125-4375) L 07/07/18 09:45 Nucleated RBCs 1 #/Diff (-0) H 07/07/18 09:45 RBC Morphology See below 07/07/18 09:45 Polychromasia 1+ H 07/07/18 09:45 Anisocytosis 1+ H 07/07/18 09:45 Tear Drop Cells 1+ H 07/07/18 09:45 Sodium 139 mmol/L (137-145) 07/14/18 09:09 Potassium 4.5 mmol/L (3.4-5.1) 07/14/18 09:09 Chloride 106 mmol/L (98-107) 07/14/18 09:09 Carbon Dioxide 24 mmol/L (22-32) 07/14/18 09:09 BUN 26 mg/dL (7-17) H 07/14/18 09:09 Creatinine 0.80 mg/dL (0.52-1.04) 07/14/18 09:09 Estimated GFR > 60.0 mL/min (>60) 07/14/18 09:09 BUN/Creatinine Ratio 32.5 (6-22) H 07/14/18 09:09 Glucose 93 mg/dL (80-110) 07/14/18 09:09 Calcium 9.4 mg/dL (8.4-10.2) 07/14/18 09:09 Total Bilirubin 0.4 mg/dL (0.2-1.3) 07/14/18 09:09 AST 30 IU/L (14-36) 07/14/18 09:09 ALT 28 IU/L (9-52) 07/14/18 09:09 Alkaline Phosphatase 61 U/L (38-126) 07/14/18 09:09 Total Protein 7.3 g/dL (6.3-8.2) 07/14/18 09:09 Albumin 4.1 g/dL (3.5-5.0) 07/14/18 09:09 Globulin 3.2 g/dL (1.7-4.1) 07/14/18 09:09 Albumin/Globulin Ratio 1.3 (1.0-2.8) 07/14/18 09:09 Assessment and Plan (1) Endometrioid adenocarcinoma of uterus Problem details: Presented with postmenopausal bleeding. Diagnosed with endometrioid endometrial adenocarcinoma after endometrial biopsy. Status post robotic-assisted hysterectomy, bilateral salpingo-oophorectomy, and bilateral pelvic lymph node dissection. The final pathology: edometrioid carcinoma, FIGO G3, pT1b pN0 pMx (AJCC 8th ed)/FIGO stage IB. Assessment: She is now undergoing adjuvant chemotherapy with Carboplatin (AUC 5), Paclitaxel 175 mg/m2, [id number]. C1D1 was 06/22/2018.The plan is 6 cycles. Patient tolerated the 1st cycle with expected adverse effects including fatigue, pain. Much improved today, patient states she has been feeling much better for the last 3 or 4 days. WBC much improved with white count of 5.3 ANC 2500. I do believe it will be safe for the patient to proceed with cycle 2 next week. Plan: 1. RTC 07/17/2018, cycle 2#, with neulasta support, CBC, CMP (2) Chemotherapy induced neutropenia Assessment and Plan: Much improved with a white count of 5.3 ANC 2500. Patient denies any cough, fever, chills, sore throat.
--- NOTE | 2018-07-17 09:18 | P.PNONC_ITS ---
PN -Subjective Interval history: Irene Snell is a 73 year old female here cycle 2# Carboplatin/Paclitaxel. She carries a diagnosis of endometrioid adenocarcinoma of the uterus, FIGO stage IB. Currently receiving treatment in the form of every 3 week carboplatin and paclitaxel. She recently completed cycle 1 Jun 22 2018. Due to neutropenia, cycle 2# has been delayed to today. She has completed prophylactic levofloxacin 500 mg. She reports good energy and good appetite. He denies any nausea or vomiting. No fever and no chills. She also denies any abdominal pain, diarrhea, or constipation. Patient reports very mild tingling of the tips the fingers that the big toes of the left foot. Patient overall has recovered from the most recent episodes of neutropenia. During her last visit, I discussed with Dr. Arango about the port placement. That is still pending. Oncology History Emma, as she prefers to be called, presented with postmenopausal bleeding. 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 Preoperative CT scan and CA-125 were within normal limits. Patient underwent robotic-assisted hysterectomy, bilateral salpingo- oophorectomy, and bilateral pelvic lymph node dissection. The final pathology showed endometrioid carcinoma, FIGO G3, greatest diameter of 4.5 cm, located at the endometrium of fundus, depth of invasion of myometrial 1.7 cm with myometrial thickness of 2.5 cm, percentage of myometrial invasion 68%, negative for carcinoma at the cervix and the endocervix, no extra-uterine involvement, venous/lymphatic invasion present, no lymph node metastasis (0/16), no para- aortic lymph nodes submitted. AJCC eighth edition staging pT1b pN0 pMx, and FIGO stage IB. Postoperatively, patient was evaluated by Dr. Courtney on 05/11/2018. Dr. Díaz is had a long and in-depth discussion with the patient. Dr. Courtney recommended between 3 and 6 cycles of every 3 week carboplatin and paclitaxel depending on tolerance. The consensus from [facility] Gynecological Oncology Tumor Board was to proceed with 6 cycles with vaginal cuff brachytherapy, but would stop chemo earlier if not tolerated. Dr. Courtney also discussed with the patient about how to prevent neuropathy with consideration for wearing iced gloves and booties during Taxol infusion to help reduce the risk of neuropathy. Dr. Courtney referred the patient to [facility] for evaluation of brachytherapy in between cycle 3 and 4 of chemotherapy. Due to transportation convenience, patient was then referred to [facility] for chemotherapy. She started Carboplatin (AUC 5) and Paclitaxel 175 mg/m2 on 06/22/2018. Attempted placement of Port-A-Cath on 06/15/[address] Arango. Procedure had to be abandoned due to the inability to get a guidewire to pass through into the vein. A right sided PICC line was inserted. - Patient Self-Reported Symptoms SR Constitution: Weight loss/gain SR ears, nose, mouth, throat issues: Changes in taste SR Skin issues: Hair loss or scalp prob SR Gastrointestinal issues: Poor or no appetite SR Musculoskeletal issues: Cold hands or feet SR Neuro issues: Tremors or shaking - Additional ROS All systems PM: reviewed and no additional remarkable complaints except as stated Home Medications and Allergies Home Medications Medication Instructions Recorded Confirmed Type metformin [Glucophage] 1,000 mg PO BIDCC #360 tab 04/08/16 07/17/18 Rx glyburide 2.5 mg PO BID #60 tab 07/07/16 07/17/18 Rx losartan 50 mg tablet 50 mg PO DAILY 04/03/18 07/17/18 History simvastatin 20 mg PO BEDTIME 05/25/18 07/17/18 History lidocaine HCl [Lidocaine Viscous] 5 ml MUCOUS MEMBRANE BID-QID PRN 06/29/18 07/17/18 Rx #200 ml acetaminophen [Tylenol] 325 mg PO Q6H PRN 07/07/18 07/17/18 History Allergies Allergy/AdvReac Type Severity Reaction Status Date / Time No Known Drug Allergies Allergy Verified 06/15/18 09:34 Exam Vital signs: Last Vital Signs Temp 98.7 F 07/17/18 09:32 Pulse 67 07/17/18 09:32 Resp 18 07/17/18 09:32 BP 133/78 07/17/18 09:32 Pulse Ox 98 07/17/18 09:32 ECOG 1 Narrative: Constitutional: WDWN, NAD, average body habitus, well groomed, pleasant and cooperative, very nervous and anxious. HEENT: NCAT, EOMI, PERRLA, anicteric sclera, no hearing difficulty; there is a sore at the left posterior oral mucosa anterior to tonsil Neck: Supple, symmetrical, and tracheal midline; No palpable thyromegaly and no palpable lymph nodes. Respiratory: No use of accessory muscles. Clear to auscultation, and no wheezes or rales or rubs. Cardiovascular: Regular rate and rhythm, S1 and S2 normal, no murmurs gallops or rubs. Abdomen: Soft, nontender, non-distended, bowel sounds normal, no palpable organomegaly, no hernia, no palpable masses. Lower extremities: No palpable pedal edema. Lymphatic: no palpable lymph nodes in the neck, axillae, or groins. Musculoskeletal: normal gait and station, no clubbing, no cyanosis, no pitting edema. Skin: no rashes, no ulcers, no petechiae Neurological: Awake and alert and oriented x3. CN II-XII grossly intact. No focal motor or sensory deficit. Psychiatric: Good judgment, good insight, normal affect, normal thought process, cooperative, no depression, very anxious and nervous. Results - Labs Laboratory Last Values WBC 7.0 X10^3/uL (4.5-11.0) 07/17/18 09:06 RBC 4.13 X10^6/uL (4.0-5.2) 07/17/18 09:06 Hgb 12.5 g/dL (12.0-16.0) 07/17/18 09:06 Hct 35.1 % (36-46) L 07/17/18 09:06 MCV 85.1 fL (80-100) D 07/17/18 09:06 MCH 30.3 PG (26-34) 07/17/18 09:06 MCHC 35.6 % (30-36) 07/17/18 09:06 RDW 13.8 % (11.6-14.8) 07/17/18 09:06 Plt Count 242 X10^3/uL (150-400) 07/17/18 09:06 Neut % (Auto) 54.0 % (50-75) 07/17/18 09:06 Lymph % (Auto) 33.8 % (25-40) 07/17/18 09:06 [place] % (Auto) 6.5 % (3-14) 07/17/18 09:06 Eos % (Auto) 4.7 % (2-4) H 07/17/18 09:06 Baso % (Auto) 1.0 % (0-2) 07/17/18 09:06 Neut # (Auto) 3800 /uL (9973-8092) 07/17/18 09:06 Lymph # (Auto) 2400 /uL (7238-4624) 07/17/18 09:06 [place] # (Auto) 500 /uL (0-900) 07/17/18 09:06 Eos # (Auto) 300 /uL (0-450) 07/17/18 09:06 Baso # (Auto) 100 /uL (0-100) 07/17/18 09:06 Total Counted 100 07/07/18 09:45 Seg Neutrophils % 22.0 % (38-70) L 07/07/18 09:45 Band Neutrophils % 1.0 % (3-7) L 07/07/18 09:45 Lymphocytes % (Manual) 62.0 % (25-45) H 07/07/18 09:45 Monocytes % (Manual) 10.0 % (2-11) 07/07/18 09:45 Eosinophils % (Manual) 4.0 % (2-4) 07/07/18 09:45 Basophils % (Manual) 1.0 % (0-1) 07/07/18 09:45 Neutrophils # (Manual) 552 /uL (0476-6768) L 07/07/18 09:45 Nucleated RBCs 1 #/Diff (-0) H 07/07/18 09:45 RBC Morphology See below 07/07/18 09:45 Polychromasia 1+ H 07/07/18 09:45 Anisocytosis 1+ H 07/07/18 09:45 Tear Drop Cells 1+ H 07/07/18 09:45 Sodium 140 mmol/L (137-145) 07/17/18 09:06 Potassium 4.4 mmol/L (3.4-5.1) 07/17/18 09:06 Chloride 105 mmol/L (98-107) 07/17/18 09:06 Carbon Dioxide 24 mmol/L (22-32) 07/17/18 09:06 BUN 23 mg/dL (7-17) H 07/17/18 09:06 Creatinine 0.60 mg/dL (0.52-1.04) 07/17/18 09:06 Estimated GFR > 60.0 mL/min (>60) 07/17/18 09:06 BUN/Creatinine Ratio 38.3 (6-22) H 07/17/18 09:06 Glucose 89 mg/dL (80-110) 07/17/18 09:06 Calcium 9.3 mg/dL (8.4-10.2) 07/17/18 09:06 Total Bilirubin 0.3 mg/dL (0.2-1.3) 07/17/18 09:06 AST 26 IU/L (14-36) 07/17/18 09:06 ALT 25 IU/L (9-52) 07/17/18 09:06 Alkaline Phosphatase 59 U/L (38-126) 07/17/18 09:06 Total Protein 7.4 g/dL (6.3-8.2) 07/17/18 09:06 Albumin 4.2 g/dL (3.5-5.0) 07/17/18 09:06 Globulin 3.2 g/dL (1.7-4.1) 07/17/18 09:06 Albumin/Globulin Ratio 1.3 (1.0-2.8) 07/17/18 09:06 Assessment and Plan (1) Endometrioid adenocarcinoma of uterus Problem details: Presented with postmenopausal bleeding. Diagnosed with endometrioid endometrial adenocarcinoma after endometrial biopsy. Status post robotic-assisted hysterectomy, bilateral salpingo-oophorectomy, and bilateral pelvic lymph node dissection. The final pathology: edometrioid carcinoma, FIGO G3, pT1b pN0 pMx (AJCC 8th ed)/FIGO stage IB. Assessment: She is now undergoing adjuvant chemotherapy with Carboplatin (AUC 5), Paclitaxel 175 mg/m2, [id number]. C1D1 was 06/22/2018. The plan is 6 cycles. The first cycle of the chemotherapy was complicated with neutropenia requiring prophylactic antibiotic Levaquin. And as a result, cycle 2 has been delayed to today. I reviewed the lab tests from today. Neutropenia has completely resolved. I also reviewed all the other labs the are appropriate for chemotherapy. From cycle 2 I will add Neulasta OnPro prophylactically. Plan: 1. OK to proceed to cycle 2# Carbo (AUC 5) and Paclitaxle (175 mg/m2) 2. Neulasta 6 mg OnPro one day 1 3. Weekly CBC, BMP 4. RTC in 3 weeks, CBC, CMP and cycle 3 (2) Chemotherapy induced neutropenia Assessment and Plan: Neutrepnia has resolved. Will add Neulasta OnPro 6 mg on day 1 of each cycle moving forward. .
[2018-07-17 09:21] LABS: Add Manual Diff / Slide Review NO; Basophils Absolute Auto 100 /uL (0-100); Eosinophils Absolute Auto 300 /uL (0-450); Eosinophils Percent Auto 4.7 % (2-4); Hematocrit 35.1 % (36-46); Hemoglobin 12.5 g/dL (12.0-16.0); Lymphocytes Absolute Auto 2400 /uL (1100-4500); Lymphocytes Percent Auto 33.8 % (25-40); Mean Corpuscular HGB Conc 35.6 % (30-36); Mean Corpuscular Hemoglobin 30.3 PG (26-34); Mean Corpuscular Volume 85.1 fL (80-100); Monocytes Absolute Auto 500 /uL (0-900); Monocytes Percent Auto 6.5 % (3-14); Neutrophils Absolute Auto 3800 /uL (1500-7000); Platelet Count 242 X10^3/uL (150-400); Red Blood Cell Count 4.13 X10^6/uL (4.0-5.2); Red Cell Distribution Width 13.8 % (11.6-14.8)
[2018-07-17 09:32] VITALS: BP 133/78; PULSE 67; RESP 18; TEMP 37.1; O2SAT 98
[2018-07-17 09:32] LABS: Alanine Aminotransferase 25 IU/L (9-52); Albumin 4.2 g/dL (3.5-5.0); Albumin Globulin Ratio 1.3 (1.0-2.8); Alkaline Phosphatase 59 U/L (38-126); Aspartate Aminotransferase 26 IU/L (14-36); BUN Creatinine Ratio 38.3 (6-22); Bilirubin Total 0.3 mg/dL (0.2-1.3); Blood Urea Nitrogen 23 mg/dL (7-17); Calcium 9.3 mg/dL (8.4-10.2); Carbon Dioxide 24 mmol/L (22-32); Chloride 105 mmol/L (98-107); Estimated Glomerular Filt Rate > 60.0 mL/min (>60); Globulin 3.2 g/dL (1.7-4.1); Glucose 89 mg/dL (80-110); HEMOLYSIS 36 (0-50); Potassium 4.4 mmol/L (3.4-5.1); Sodium 140 mmol/L (137-145); Total Protein 7.4 g/dL (6.3-8.2)
[2018-07-17] MEDS: FAMOTIDINE 20 MG/50 ML PIGGYBACK 200 MG IV (10:40)
[2018-07-17] MEDS: ACETAMINOPHEN 325 MG TABLET 650 MG PO (10:42)
[2018-07-17] MEDS: diphenhydrAMINE 25 MG TABLET PO (10:42)
[2018-07-17] MEDS: SODIUM CHLORIDE 0.9% 100 ML 21 ML IV (10:43)
[2018-07-17] MEDS: DEXAMETHASONE 20 MG in SODIUM CHLORIDE 0.9% 50 ML 220 ML IV (11:05)
[2018-07-17] MEDS: FOSAPREPITANT 150 MG in SODIUM CHLORIDE 0.9% 150 ML 300 ML IV (11:35)
[2018-07-17] MEDS: ONDANSETRON 16 MG in SODIUM CHLORIDE 0.9% 50 ML 232 ML IV (12:10)
[2018-07-17] MEDS: CARBOPLATIN IV (16:05)
[2018-07-17] MEDS: SODIUM CHLORIDE 0.9% IV (16:05)
[2018-07-17] MEDS: PEGFILGRASTIM 6 MG/0.6 ML KIT SUBCUT (16:39)
[2018-07-24 09:32] LABS: Hematocrit 37.4 % (36-46); Hemoglobin 12.8 g/dL (12.0-16.0); Mean Corpuscular HGB Conc 34.1 % (30-36); Mean Corpuscular Hemoglobin 30.5 PG (26-34); Mean Corpuscular Volume 89.3 fL (80-100); Platelet Count 162 X10^3/uL (150-400); Red Blood Cell Count 4.19 X10^6/uL (4.0-5.2); Red Cell Distribution Width 13.9 % (11.6-14.8); White Blood Cell Count 4.3 X10^3/uL (4.5-11.0)
[2018-07-24 09:39] LABS: Add Manual Diff / Slide Review YES
[2018-07-24 09:41] LABS: Alanine Aminotransferase 23 IU/L (9-52); Albumin 4.2 g/dL (3.5-5.0); Albumin Globulin Ratio 1.4 (1.0-2.8); Alkaline Phosphatase 71 U/L (38-126); Aspartate Aminotransferase 24 IU/L (14-36); BUN Creatinine Ratio 43.6 (6-22); Bilirubin Total 0.5 mg/dL (0.2-1.3); Blood Urea Nitrogen 48 mg/dL (7-17); Calcium 9.7 mg/dL (8.4-10.2); Carbon Dioxide 23 mmol/L (22-32); Chloride 102 mmol/L (98-107); Estimated Glomerular Filt Rate 48.8 mL/min (>60); Glucose 133 mg/dL (80-110); HEMOLYSIS < 15 (0-50); Potassium 4.3 mmol/L (3.4-5.1); Sodium 138 mmol/L (137-145); Total Protein 7.2 g/dL (6.3-8.2)
[2018-07-24 10:04] LABS: Neutrophils Absolute Manual 1118 /uL (3000-5900); Total Cells Counted 100
[2018-07-24 10:05] LABS: RBC Morphology Normal Morphology
--- NOTE | 2018-07-25 10:01 | PC.NURSE ---
labs dated 2817, next lab draw is 07/31 provider visit 08/07
[2018-07-31 10:17] LABS: Add Manual Diff / Slide Review NO; Basophils Absolute Auto 0 /uL (0-100); Basophils Percent Auto 0.3 % (0-2); Eosinophils Absolute Auto 200 /uL (0-450); Eosinophils Percent Auto 2.9 % (2-4); Hematocrit 34.4 % (36-46); Hemoglobin 11.8 g/dL (12.0-16.0); Lymphocytes Absolute Auto 1900 /uL (1100-4500); Lymphocytes Percent Auto 24.5 % (25-40); Mean Corpuscular HGB Conc 34.3 % (30-36); Mean Corpuscular Hemoglobin 30.6 PG (26-34); Mean Corpuscular Volume 89.1 fL (80-100); Monocytes Absolute Auto 500 /uL (0-900); Monocytes Percent Auto 5.9 % (3-14); Neutrophils Absolute Auto 5200 /uL (1500-7000); Neutrophils Percent Auto 66.4 % (50-75); Platelet Count 219 X10^3/uL (150-400); Red Blood Cell Count 3.87 X10^6/uL (4.0-5.2); Red Cell Distribution Width 14.4 % (11.6-14.8); White Blood Cell Count 7.8 X10^3/uL (4.5-11.0)
[2018-07-31 10:23] LABS: Alanine Aminotransferase 32 IU/L (9-52); Albumin 3.9 g/dL (3.5-5.0); Albumin Globulin Ratio 1.3 (1.0-2.8); Alkaline Phosphatase 76 U/L (38-126); Aspartate Aminotransferase 25 IU/L (14-36); Bilirubin Total 0.3 mg/dL (0.2-1.3); Blood Urea Nitrogen 14 mg/dL (7-17); Calcium 8.9 mg/dL (8.4-10.2); Carbon Dioxide 23 mmol/L (22-32); Chloride 104 mmol/L (98-107); Estimated Glomerular Filt Rate > 60.0 mL/min (>60); Globulin 2.9 g/dL (1.7-4.1); Glucose 139 mg/dL (80-110); HEMOLYSIS < 15 (0-50); Potassium 4.2 mmol/L (3.4-5.1); Sodium 139 mmol/L (137-145); Total Protein 6.8 g/dL (6.3-8.2)
--- NOTE | 2018-08-07 08:05 | ONC.PN ---
PN -Subjective Interval history: Irene Snell is a 73 year old female here cycle 3# Carboplatin/Paclitaxel. She carries a diagnosis of endometrioid adenocarcinoma of the uterus, FIGO stage IB. Currently receiving treatment in the form of every 3 week carboplatin and paclitaxel. She completed cycle 1 Jun 22 2018. Due to neutropenia, cycle 2# has been delayed by one week to 07/17/2018 with Neulasta 6 mg support. Patient reported overall he has been doing well. She came in here today accompanied by her daughter and her . Patient reports no fever and no chills. Patient reports just body aches and pain. Patient has a poor stamina. Patient reports that her appetite has been okay. She is gaining weight ?half a lb a day?. Patient is complaining mild tingling of the tips of the fingers. The toes are okay. Patient denies any diarrhea or constipation. Weekly monitoring of the CBC showed no neutropenia for the past 1 cycle. Oncology History Emma, as she prefers to be called, presented with postmenopausal bleeding. 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 Preoperative CT scan and CA-125 were within normal limits. Patient underwent robotic-assisted hysterectomy, bilateral salpingo-oophorectomy, and bilateral pelvic lymph node dissection. The final pathology showed endometrioid carcinoma, FIGO G3, greatest diameter of 4.5 cm, located at the endometrium of fundus, depth of invasion of myometrial 1.7 cm with myometrial thickness of 2.5 cm, percentage of myometrial invasion 68%, negative for carcinoma at the cervix and the endocervix, no extra-uterine involvement, venous/lymphatic invasion present, no lymph node metastasis (0/16), no para-aortic lymph nodes submitted. AJCC eighth edition staging pT1b pN0 pMx, and FIGO stage IB. Postoperatively, patient was evaluated by Dr. Courtney on 05/11/2018. Dr. Díaz is had a long and in-depth discussion with the patient. Dr. Courtney recommended between 3 and 6 cycles of every 3 week carboplatin and paclitaxel depending on tolerance. The consensus from [facility] Gynecological Oncology Tumor Board was to proceed with 6 cycles with vaginal cuff brachytherapy, but would stop chemo earlier if not tolerated. Dr. Courtney also discussed with the patient about how to prevent neuropathy with consideration for wearing iced gloves and booties during Taxol infusion to help reduce the risk of neuropathy. Dr. Courtney referred the patient to [facility] for evaluation of brachytherapy in between cycle 3 and 4 of chemotherapy. Due to transportation convenience, patient was then referred to [facility] for chemotherapy. She started Carboplatin (AUC 5) and Paclitaxel 175 mg/m2 on 06/22/2018. Attempted placement of Port-A-Cath on 06/15/[address] Arango. Procedure had to be abandoned due to the inability to get a guidewire to pass through into the vein. A right sided PICC line was inserted. - Patient Self-Reported Symptoms SR Constitution: Weight loss/gain SR ears, nose, mouth, throat issues: Changes in taste SR Skin issues: Hair loss or scalp prob SR Gastrointestinal issues: Poor or no appetite SR Musculoskeletal issues: Cold hands or feet SR Neuro issues: Tremors or shaking - Additional ROS All systems PM: reviewed and no additional remarkable complaints except as stated Home Medications and Allergies Home Medications Medication Instructions Recorded Confirmed Type metformin [Glucophage] 1,000 mg PO BIDCC #360 tab 04/08/16 07/17/18 Rx glyburide 2.5 mg PO BID #60 tab 07/07/16 07/17/18 Rx losartan 50 mg tablet 50 mg PO DAILY 04/03/18 07/17/18 History simvastatin 20 mg PO BEDTIME 05/25/18 07/17/18 History lidocaine HCl [Lidocaine Viscous] 5 ml MUCOUS MEMBRANE BID-QID PRN 06/29/18 07/17/18 Rx #200 ml acetaminophen [Tylenol] 325 mg PO Q6H PRN 07/07/18 07/17/18 History Allergies Allergy/AdvReac Type Severity Reaction Status Date / Time No Known Drug Allergies Allergy Verified 06/15/18 09:34 Exam Vital signs: Last Vital Signs Temp 97.9 F 08/07/18 09:43 Pulse 69 08/07/18 09:43 Resp 18 08/07/18 09:43 BP 149/79 H 08/07/18 09:43 Pulse Ox 100 08/07/18 09:43 ECOG 1 Narrative: Constitutional: WDWN, NAD, average body habitus, well groomed, pleasant and cooperative, very nervous and anxious. HEENT: NCAT, EOMI, PERRLA, anicteric sclera, MMM. Neck: Supple, symmetrical, and tracheal midline; No palpable thyromegaly and no palpable lymph nodes. Respiratory: No use of accessory muscles. Clear to auscultation, and no wheezes or rales or rubs. Cardiovascular: Regular rate and rhythm, S1 and S2 normal, no murmurs gallops or rubs. Abdomen: Soft, nontender, non-distended, bowel sounds normal, no palpable organomegaly, no hernia, no palpable masses. Lower extremities: No palpable pedal edema. Skin: no rashes, no ulcers, no petechiae Neurological: Awake and alert and oriented x3. CN II-XII grossly intact. No focal motor or sensory deficit. Psychiatric: Good judgment, good insight, normal affect, normal thought process, cooperative, no depression, very anxious and nervous. Results - Labs Laboratory Last Values WBC 7.8 X10^3/uL (4.5-11.0) 07/31/18 09:47 RBC 3.87 X10^6/uL (4.0-5.2) L 07/31/18 09:47 Hgb 11.8 g/dL (12.0-16.0) L 07/31/18 09:47 Hct 34.4 % (36-46) L 07/31/18 09:47 MCV 89.1 fL (80-100) 07/31/18 09:47 MCH 30.6 PG (26-34) 07/31/18 09:47 MCHC 34.3 % (30-36) 07/31/18 09:47 RDW 14.4 % (11.6-14.8) 07/31/18 09:47 Plt Count 219 X10^3/uL (150-400) 07/31/18 09:47 Neut % (Auto) 66.4 % (50-75) 07/31/18 09:47 Lymph % (Auto) 24.5 % (25-40) L 07/31/18 09:47 [place] % (Auto) 5.9 % (3-14) 07/31/18 09:47 Eos % (Auto) 2.9 % (2-4) 07/31/18 09:47 Baso % (Auto) 0.3 % (0-2) 07/31/18 09:47 Neut # (Auto) 5200 /uL (3764-9354) 07/31/18 09:47 Lymph # (Auto) 1900 /uL (0153-0529) 07/31/18 09:47 [place] # (Auto) 500 /uL (0-900) 07/31/18 09:47 Eos # (Auto) 200 /uL (0-450) 07/31/18 09:47 Baso # (Auto) 0 /uL (0-100) 07/31/18 09:47 Total Counted 100 07/24/18 09:00 Seg Neutrophils % 20.0 % (38-70) L 07/24/18 09:00 Band Neutrophils % 6.0 % (3-7) 07/24/18 09:00 Lymphocytes % (Manual) 34.0 % (25-45) 07/24/18 09:00 Atypical Lymphs % 6.0 % (-0) H 07/24/18 09:00 Monocytes % (Manual) 26.0 % (2-11) H 07/24/18 09:00 Eosinophils % (Manual) 8.0 % (2-4) H 07/24/18 09:00 Basophils % (Manual) 1.0 % (0-1) 07/07/18 09:45 Neutrophils # (Manual) 1118 /uL (8152-0765) L 07/24/18 09:00 Nucleated RBCs 1 #/Diff (-0) H 07/07/18 09:45 RBC Morphology Normal morphology 07/24/18 09:00 Polychromasia 1+ H 07/07/18 09:45 Anisocytosis 1+ H 07/07/18 09:45 Tear Drop Cells 1+ H 07/07/18 09:45 Sodium 139 mmol/L (137-145) 07/31/18 09:47 Potassium 4.2 mmol/L (3.4-5.1) 07/31/18 09:47 Chloride 104 mmol/L (98-107) 07/31/18 09:47 Carbon Dioxide 23 mmol/L (22-32) 07/31/18 09:47 BUN 14 mg/dL (7-17) 07/31/18 09:47 Creatinine 0.50 mg/dL (0.52-1.04) L 07/31/18 09:47 Estimated GFR > 60.0 mL/min (>60) 07/31/18 09:47 BUN/Creatinine Ratio 28.0 (6-22) H 07/31/18 09:47 Glucose 139 mg/dL (80-110) H 07/31/18 09:47 Calcium 8.9 mg/dL (8.4-10.2) 07/31/18 09:47 Total Bilirubin 0.3 mg/dL (0.2-1.3) 07/31/18 09:47 AST 25 IU/L (14-36) 07/31/18 09:47 ALT 32 IU/L (9-52) 07/31/18 09:47 Alkaline Phosphatase 76 U/L (38-126) 07/31/18 09:47 Total Protein 6.8 g/dL (6.3-8.2) 07/31/18 09:47 Albumin 3.9 g/dL (3.5-5.0) 07/31/18 09:47 Globulin 2.9 g/dL (1.7-4.1) 07/31/18 09:47 Albumin/Globulin Ratio 1.3 (1.0-2.8) 07/31/18 09:47 Laboratory Last Values WBC 6.0 X10^3/uL (4.5-11.0) 08/07/18 08:24 RBC 3.81 X10^6/uL (4.0-5.2) L 08/07/18 08:24 Hgb 11.6 g/dL (12.0-16.0) L 08/07/18 08:24 Hct 34.5 % (36-46) L 08/07/18 08:24 MCV 90.6 fL (80-100) 08/07/18 08:24 MCH 30.4 PG (26-34) 08/07/18 08:24 MCHC 33.6 % (30-36) 08/07/18 08:24 RDW 15.3 % (11.6-14.8) H 08/07/18 08:24 Plt Count 241 X10^3/uL (150-400) 08/07/18 08:24 Neut % (Auto) 57.6 % (50-75) 08/07/18 08:24 Lymph % (Auto) 30.5 % (25-40) 08/07/18 08:24 [place] % (Auto) 9.7 % (3-14) 08/07/18 08:24 Eos % (Auto) 1.1 % (2-4) L 08/07/18 08:24 Baso % (Auto) 1.1 % (0-2) 08/07/18 08:24 Neut # (Auto) 3400 /uL (4332-2380) 08/07/18 08:24 Lymph # (Auto) 1800 /uL (5444-2834) 08/07/18 08:24 [place] # (Auto) 600 /uL (0-900) 08/07/18 08:24 Eos # (Auto) 100 /uL (0-450) 08/07/18 08:24 Baso # (Auto) 100 /uL (0-100) 08/07/18 08:24 Total Counted 100 07/24/18 09:00 Seg Neutrophils % 20.0 % (38-70) L 07/24/18 09:00 Band Neutrophils % 6.0 % (3-7) 07/24/18 09:00 Lymphocytes % (Manual) 34.0 % (25-45) 07/24/18 09:00 Atypical Lymphs % 6.0 % (-0) H 07/24/18 09:00 Monocytes % (Manual) 26.0 % (2-11) H 07/24/18 09:00 Eosinophils % (Manual) 8.0 % (2-4) H 07/24/18 09:00 Basophils % (Manual) 1.0 % (0-1) 07/07/18 09:45 Neutrophils # (Manual) 1118 /uL (7715-2803) L 07/24/18 09:00 Nucleated RBCs 1 #/Diff (-0) H 07/07/18 09:45 RBC Morphology Normal morphology 07/24/18 09:00 Polychromasia 1+ H 07/07/18 09:45 Anisocytosis 1+ H 07/07/18 09:45 Tear Drop Cells 1+ H 07/07/18 09:45 Sodium 140 mmol/L (137-145) 08/07/18 08:24 Potassium 4.5 mmol/L (3.4-5.1) 08/07/18 08:24 Chloride 106 mmol/L (98-107) 08/07/18 08:24 Carbon Dioxide 25 mmol/L (22-32) 08/07/18 08:24 BUN 13 mg/dL (7-17) 08/07/18 08:24 Creatinine 0.50 mg/dL (0.52-1.04) L 08/07/18 08:24 Estimated GFR > 60.0 mL/min (>60) 08/07/18 08:24 BUN/Creatinine Ratio 26.0 (6-22) H 08/07/18 08:24 Glucose 97 mg/dL (80-110) 08/07/18 08:24 Calcium 9.3 mg/dL (8.4-10.2) 08/07/18 08:24 Total Bilirubin 0.4 mg/dL (0.2-1.3) 08/07/18 08:24 AST 25 IU/L (14-36) 08/07/18 08:24 ALT 28 IU/L (9-52) 08/07/18 08:24 Alkaline Phosphatase 62 U/L (38-126) 08/07/18 08:24 Total Protein 7.0 g/dL (6.3-8.2) 08/07/18 08:24 Albumin 4.0 g/dL (3.5-5.0) 08/07/18 08:24 Globulin 3.0 g/dL (1.7-4.1) 08/07/18 08:24 Albumin/Globulin Ratio 1.3 (1.0-2.8) 08/07/18 08:24 Assessment and Plan (1) Endometrioid adenocarcinoma of uterus Problem details: Presented with postmenopausal bleeding. Diagnosed with endometrioid endometrial adenocarcinoma after endometrial biopsy. Status post robotic-assisted hysterectomy, bilateral salpingo-oophorectomy, and bilateral pelvic lymph node dissection. The final pathology: edometrioid carcinoma, FIGO G3, pT1b pN0 pMx (AJCC 8th ed)/FIGO stage IB. Assessment: She is now undergoing adjuvant chemotherapy with Carboplatin (AUC 5), Paclitaxel 175 mg/m2, [id number]. C1D1 was 06/22/2018. The plan is 6 cycles. The first cycle of the chemotherapy was complicated with neutropenia requiring prophylactic antibiotic Levaquin. And as a result, cycle 2 has been delayed by one week with addition of Neulasta 6 mg. No Neutropenia during the past three weeks. I reviewed all the labs today and they are appropriate for chemotherapy. Plan: 1. OK to proceed to cycle 3# Carbo (AUC 5) and Paclitaxle (175 mg/m2) 2. Neulasta 6 mg OnPro one day 1 3. Weekly CBC, BMP 4. RTC in 3 weeks, CBC, CMP and cycle 4 (2) Chemotherapy induced neutropenia Assessment and Plan: Neutrepnia has resolved. Will continue Neulasta OnPro 6 mg on day 1 of each remaining cycles.
[2018-08-07 09:36] LABS: Add Manual Diff / Slide Review NO; Basophils Absolute Auto 100 /uL (0-100); Basophils Percent Auto 1.1 % (0-2); Eosinophils Absolute Auto 100 /uL (0-450); Eosinophils Percent Auto 1.1 % (2-4); Hematocrit 34.5 % (36-46); Hemoglobin 11.6 g/dL (12.0-16.0); Lymphocytes Absolute Auto 1800 /uL (1100-4500); Lymphocytes Percent Auto 30.5 % (25-40); Mean Corpuscular HGB Conc 33.6 % (30-36); Mean Corpuscular Hemoglobin 30.4 PG (26-34); Mean Corpuscular Volume 90.6 fL (80-100); Monocytes Absolute Auto 600 /uL (0-900); Monocytes Percent Auto 9.7 % (3-14); Neutrophils Absolute Auto 3400 /uL (1500-7000); Neutrophils Percent Auto 57.6 % (50-75); Platelet Count 241 X10^3/uL (150-400); Red Blood Cell Count 3.81 X10^6/uL (4.0-5.2); Red Cell Distribution Width 15.3 % (11.6-14.8)
[2018-08-07 09:43] VITALS: BP 149/79; PULSE 69; RESP 18; TEMP 36.6; O2SAT 100
[2018-08-07 09:54] LABS: Alanine Aminotransferase 28 IU/L (9-52); Albumin Globulin Ratio 1.3 (1.0-2.8); Alkaline Phosphatase 62 U/L (38-126); Aspartate Aminotransferase 25 IU/L (14-36); Bilirubin Total 0.4 mg/dL (0.2-1.3); Blood Urea Nitrogen 13 mg/dL (7-17); Calcium 9.3 mg/dL (8.4-10.2); Carbon Dioxide 25 mmol/L (22-32); Chloride 106 mmol/L (98-107); Estimated Glomerular Filt Rate > 60.0 mL/min (>60); Glucose 97 mg/dL (80-110); HEMOLYSIS < 15 (0-50); Potassium 4.5 mmol/L (3.4-5.1); Sodium 140 mmol/L (137-145)
[2018-08-07] MEDS: SODIUM CHLORIDE 0.9% 100 ML 21 ML IV (10:40)
[2018-08-07] MEDS: ACETAMINOPHEN 325 MG TABLET 650 MG PO (10:40)
[2018-08-07] MEDS: diphenhydrAMINE 25 MG TABLET PO (10:40)
[2018-08-07] MEDS: DEXAMETHASONE 20 MG in SODIUM CHLORIDE 0.9% 50 ML 220 ML IV (10:44)
[2018-08-07] MEDS: ONDANSETRON 16 MG in SODIUM CHLORIDE 0.9% 50 ML 232 ML IV (10:47)
[2018-08-07] MEDS: FOSAPREPITANT 150 MG in SODIUM CHLORIDE 0.9% 150 ML 300 ML IV (11:05)
[2018-08-07] MEDS: FAMOTIDINE 20 MG/50 ML PIGGYBACK 200 MG IV (11:43)
[2018-08-07] MEDS: CARBOPLATIN IV (15:35)
[2018-08-07] MEDS: SODIUM CHLORIDE 0.9% IV (15:35)
[2018-08-07] MEDS: PEGFILGRASTIM 6 MG/0.6 ML KIT SUBCUT (16:42)
[2018-08-15 15:00] LABS: Add Manual Diff / Slide Review NO; Basophils Absolute Auto 100 /uL (0-100); Basophils Percent Auto 1.3 % (0-2); Eosinophils Absolute Auto 200 /uL (0-450); Eosinophils Percent Auto 2.8 % (2-4); Hematocrit 34.9 % (36-46); Hemoglobin 11.9 g/dL (12.0-16.0); Lymphocytes Absolute Auto 1800 /uL (1100-4500); Mean Corpuscular Hemoglobin 30.8 PG (26-34); Mean Corpuscular Volume 90.7 fL (80-100); Monocytes Absolute Auto 900 /uL (0-900); Monocytes Percent Auto 14.4 % (3-14); Neutrophils Absolute Auto 3500 /uL (1500-7000); Neutrophils Percent Auto 53.5 % (50-75); Platelet Count 174 X10^3/uL (150-400); Red Blood Cell Count 3.85 X10^6/uL (4.0-5.2); Red Cell Distribution Width 16.2 % (11.6-14.8); White Blood Cell Count 6.5 X10^3/uL (4.5-11.0)
[2018-08-15 15:17] LABS: Alanine Aminotransferase 32 IU/L (9-52); Albumin 4.5 g/dL (3.5-5.0); Albumin Globulin Ratio 1.4 (1.0-2.8); Alkaline Phosphatase 71 U/L (38-126); Aspartate Aminotransferase 31 IU/L (14-36); BUN Creatinine Ratio 38.6 (6-22); Bilirubin Total 0.5 mg/dL (0.2-1.3); Blood Urea Nitrogen 27 mg/dL (7-17); Calcium 9.6 mg/dL (8.4-10.2); Carbon Dioxide 25 mmol/L (22-32); Chloride 102 mmol/L (98-107); Estimated Glomerular Filt Rate > 60.0 mL/min (>60); Globulin 3.2 g/dL (1.7-4.1); Glucose 198 mg/dL (80-110); HEMOLYSIS < 15 (0-50); Potassium 4.4 mmol/L (3.4-5.1); Sodium 139 mmol/L (137-145); Total Protein 7.7 g/dL (6.3-8.2)
--- NOTE | 2018-08-17 13:05 | PC.NURSE ---
pt called for 3.12 lab results. [place] [facility] [place]
[2018-08-23 11:03] LABS: Add Manual Diff / Slide Review NO; Basophils Absolute Auto 0 /uL (0-100); Basophils Percent Auto 0.4 % (0-2); Eosinophils Absolute Auto 100 /uL (0-450); Eosinophils Percent Auto 1.3 % (2-4); Hematocrit 31.5 % (36-46); Hemoglobin 10.7 g/dL (12.0-16.0); Lymphocytes Absolute Auto 2000 /uL (1100-4500); Lymphocytes Percent Auto 28.8 % (25-40); Mean Corpuscular Volume 91.4 fL (80-100); Monocytes Absolute Auto 600 /uL (0-900); Monocytes Percent Auto 8.8 % (3-14); Neutrophils Absolute Auto 4100 /uL (1500-7000); Neutrophils Percent Auto 60.7 % (50-75); Platelet Count 185 X10^3/uL (150-400); Red Blood Cell Count 3.44 X10^6/uL (4.0-5.2); Red Cell Distribution Width 17.1 % (11.6-14.8); White Blood Cell Count 6.8 X10^3/uL (4.5-11.0)
[2018-08-23 11:14] LABS: BUN Creatinine Ratio 26.7 (6-22); Blood Urea Nitrogen 16 mg/dL (7-17); Calcium 9.1 mg/dL (8.4-10.2); Carbon Dioxide 25 mmol/L (22-32); Chloride 106 mmol/L (98-107); Estimated Glomerular Filt Rate > 60.0 mL/min (>60); Glucose 120 mg/dL (80-110); HEMOLYSIS < 15 (0-50); Potassium 4.5 mmol/L (3.4-5.1); Sodium 140 mmol/L (137-145)
[2018-08-31 09:18] LABS: Add Manual Diff / Slide Review NO; Basophils Absolute Auto 0 /uL (0-100); Basophils Percent Auto 0.6 % (0-2); Eosinophils Absolute Auto 0 /uL (0-450); Eosinophils Percent Auto 0.7 % (2-4); Hematocrit 31.1 % (36-46); Hemoglobin 10.9 g/dL (12.0-16.0); Lymphocytes Absolute Auto 1800 /uL (1100-4500); Lymphocytes Percent Auto 32.6 % (25-40); Mean Corpuscular HGB Conc 35.1 % (30-36); Mean Corpuscular Hemoglobin 32.1 PG (26-34); Mean Corpuscular Volume 91.4 fL (80-100); Monocytes Absolute Auto 500 /uL (0-900); Monocytes Percent Auto 9.6 % (3-14); Neutrophils Absolute Auto 3100 /uL (1500-7000); Neutrophils Percent Auto 56.5 % (50-75); Platelet Count 273 X10^3/uL (150-400); Red Cell Distribution Width 18.1 % (11.6-14.8); White Blood Cell Count 5.5 X10^3/uL (4.5-11.0)
[2018-08-31 09:28] LABS: Alanine Aminotransferase 25 IU/L (9-52); Albumin Globulin Ratio 1.4 (1.0-2.8); Alkaline Phosphatase 63 U/L (38-126); Aspartate Aminotransferase 22 IU/L (14-36); Bilirubin Total 0.6 mg/dL (0.2-1.3); Blood Urea Nitrogen 13 mg/dL (7-17); Calcium 9.2 mg/dL (8.4-10.2); Carbon Dioxide 26 mmol/L (22-32); Chloride 106 mmol/L (98-107); Estimated Glomerular Filt Rate > 60.0 mL/min (>60); Globulin 2.9 g/dL (1.7-4.1); Glucose 74 mg/dL (80-110); HEMOLYSIS < 15 (0-50); Potassium 3.7 mmol/L (3.4-5.1); Sodium 141 mmol/L (137-145); Total Protein 6.9 g/dL (6.3-8.2)
[2018-08-31 09:44] VITALS: BP 140/78; PULSE 69; RESP 16; TEMP 35.7; O2SAT 98
--- NOTE | 2018-08-31 09:59 | ONC.PN ---
PN -Subjective Interval history: Irene Snell is a 73 year old female here cycle 4# Carboplatin/Paclitaxel. She carries a diagnosis of endometrioid adenocarcinoma of the uterus, FIGO stage IB. Currently receiving treatment in the form of every 3 week carboplatin and paclitaxel. For the past cycle 3, patient has been doing well. Patient is complaining mild bilateral soreness of the thighs. Sometimes she is having some sensation of wobbling. She is doing massage herself with some help. She is complaining mild tingling of the tips of the fingers but not the tips of the toes. Patient has no problems buttoning shirts. Patient also feels weak on her legs and she is walking with a stick at home according to patient. She is afraid of collapse. She is reporting mild intermittent headache. No other new findings. Oncology History Emma, as she prefers to be called, presented with postmenopausal bleeding. 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 Preoperative CT scan and CA-125 were within normal limits. Patient underwent robotic-assisted hysterectomy, bilateral salpingo-oophorectomy, and bilateral pelvic lymph node dissection. The final pathology showed endometrioid carcinoma, FIGO G3, greatest diameter of 4.5 cm, located at the endometrium of fundus, depth of invasion of myometrial 1.7 cm with myometrial thickness of 2.5 cm, percentage of myometrial invasion 68%, negative for carcinoma at the cervix and the endocervix, no extra-uterine involvement, venous/lymphatic invasion present, no lymph node metastasis (0/16), no para-aortic lymph nodes submitted. AJCC eighth edition staging pT1b pN0 pMx, and FIGO stage IB. Postoperatively, patient was evaluated by Dr. Courtney on 05/11/2018. Dr. Díaz is had a long and in-depth discussion with the patient. Dr. Courtney recommended between 3 and 6 cycles of every 3 week carboplatin and paclitaxel depending on tolerance. The consensus from [facility] Gynecological Oncology Tumor Board was to proceed with 6 cycles with vaginal cuff brachytherapy, but would stop chemo earlier if not tolerated. Dr. Courtney also discussed with the patient about how to prevent neuropathy with consideration for wearing iced gloves and booties during Taxol infusion to help reduce the risk of neuropathy. Dr. Courtney referred the patient to [facility] for evaluation of brachytherapy in between cycle 3 and 4 of chemotherapy. Due to transportation convenience, patient was then referred to [facility] [place] [facility] for chemotherapy. She started Carboplatin (AUC 5) and Paclitaxel 175 mg/m2 on 06/22/2018. Attempted placement of Port-A-Cath on 06/15/[address] Arango. Procedure had to be abandoned due to the inability to get a guidewire to pass through into the vein. A right sided PICC line was inserted. - Patient Self-Reported Symptoms SR Constitution: Weight loss/gain SR ears, nose, mouth, throat issues: Changes in taste SR Skin issues: Hair loss or scalp prob SR Gastrointestinal issues: Poor or no appetite SR Musculoskeletal issues: Muscle weakness, Muscle pain or cramps, Difficulty walking SR Neuro issues: Lightheaded/dizzy - Additional ROS All systems PM: reviewed and no additional remarkable complaints except as stated Home Medications and Allergies Home Medications Medication Instructions Recorded Confirmed Type metformin [Glucophage] 1,000 mg PO BIDCC #360 tab 04/08/16 08/31/18 Rx glyburide 2.5 mg PO BID #60 tab 07/07/16 08/31/18 Rx losartan 50 mg tablet 50 mg PO DAILY 04/03/18 08/31/18 History simvastatin 20 mg PO BEDTIME 05/25/18 08/31/18 History lidocaine HCl [Lidocaine Viscous] 5 ml MUCOUS MEMBRANE BID-QID PRN 06/29/18 08/31/18 Rx #200 ml acetaminophen [Tylenol] 325 mg PO Q6H PRN 07/07/18 08/31/18 History Allergies Allergy/AdvReac Type Severity Reaction Status Date / Time No Known Drug Allergies Allergy Verified 06/15/18 09:34 Exam Vital signs: Vital Signs Temp Pulse Resp BP Pulse Ox 08/31/18 09:44 96.3 F L 69 16 140/78 98 Intake and Output 08/30/18 08/31/18 08/31/18 23:59 07:59 15:59 Other: Weight 69.5 kg Patient Weight 08/31/18 23:59 Weight 69.5 kg Narrative: Constitutional: WDWN, NAD, average body habitus, well groomed, pleasant and cooperative, very nervous and anxious. HEENT: NCAT, EOMI, PERRLA, anicteric sclera, MMM. Neck: Supple, symmetrical, and tracheal midline; No palpable thyromegaly and no palpable lymph nodes. Respiratory: No use of accessory muscles. Clear to auscultation, and no wheezes or rales or rubs. Cardiovascular: Regular rate and rhythm, S1 and S2 normal, no murmurs gallops or rubs. Abdomen: Soft, nontender, non-distended, bowel sounds normal, no palpable organomegaly, no hernia, no palpable masses. Lower extremities: No palpable pedal edema. Skin: no rashes, no ulcers, no petechiae Neurological: Awake and alert and oriented x3. CN II-XII grossly intact. No focal motor or sensory deficit. Psychiatric: Good judgment, good insight, normal affect, normal thought process, cooperative, no depression, very anxious and nervous Results - Labs Laboratory Last Values WBC 5.5 X10^3/uL (4.5-11.0) 08/31/18 09:05 RBC 3.40 X10^6/uL (4.0-5.2) L 08/31/18 09:05 Hgb 10.9 g/dL (12.0-16.0) L 08/31/18 09:05 Hct 31.1 % (36-46) L 08/31/18 09:05 MCV 91.4 fL (80-100) 08/31/18 09:05 MCH 32.1 PG (26-34) 08/31/18 09:05 MCHC 35.1 % (30-36) 08/31/18 09:05 RDW 18.1 % (11.6-14.8) H 08/31/18 09:05 Plt Count 273 X10^3/uL (150-400) 08/31/18 09:05 Neut % (Auto) 56.5 % (50-75) 08/31/18 09:05 Lymph % (Auto) 32.6 % (25-40) 08/31/18 09:05 [place] % (Auto) 9.6 % (3-14) 08/31/18 09:05 Eos % (Auto) 0.7 % (2-4) L 08/31/18 09:05 Baso % (Auto) 0.6 % (0-2) 08/31/18 09:05 Neut # (Auto) 3100 /uL (3896-9840) 08/31/18 09:05 Lymph # (Auto) 1800 /uL (8640-5802) 08/31/18 09:05 [place] # (Auto) 500 /uL (0-900) 08/31/18 09:05 Eos # (Auto) 0 /uL (0-450) 08/31/18 09:05 Baso # (Auto) 0 /uL (0-100) 08/31/18 09:05 Total Counted 100 07/24/18 09:00 Seg Neutrophils % 20.0 % (38-70) L 07/24/18 09:00 Band Neutrophils % 6.0 % (3-7) 07/24/18 09:00 Lymphocytes % (Manual) 34.0 % (25-45) 07/24/18 09:00 Atypical Lymphs % 6.0 % (-0) H 07/24/18 09:00 Monocytes % (Manual) 26.0 % (2-11) H 07/24/18 09:00 Eosinophils % (Manual) 8.0 % (2-4) H 07/24/18 09:00 Basophils % (Manual) 1.0 % (0-1) 07/07/18 09:45 Neutrophils # (Manual) 1118 /uL (7233-8234) L 07/24/18 09:00 Nucleated RBCs 1 #/Diff (-0) H 07/07/18 09:45 RBC Morphology Normal morphology 07/24/18 09:00 Polychromasia 1+ H 07/07/18 09:45 Anisocytosis 1+ H 07/07/18 09:45 Tear Drop Cells 1+ H 07/07/18 09:45 Sodium 141 mmol/L (137-145) 08/31/18 09:05 Potassium 3.7 mmol/L (3.4-5.1) 08/31/18 09:05 Chloride 106 mmol/L (98-107) 08/31/18 09:05 Carbon Dioxide 26 mmol/L (22-32) 08/31/18 09:05 BUN 13 mg/dL (7-17) 08/31/18 09:05 Creatinine 0.50 mg/dL (0.52-1.04) L 08/31/18 09:05 Estimated GFR > 60.0 mL/min (>60) 08/31/18 09:05 BUN/Creatinine Ratio 26.0 (6-22) H 08/31/18 09:05 Glucose 74 mg/dL (80-110) L 08/31/18 09:05 Calcium 9.2 mg/dL (8.4-10.2) 08/31/18 09:05 Total Bilirubin 0.6 mg/dL (0.2-1.3) 08/31/18 09:05 AST 22 IU/L (14-36) 08/31/18 09:05 ALT 25 IU/L (9-52) 08/31/18 09:05 Alkaline Phosphatase 63 U/L (38-126) 08/31/18 09:05 Total Protein 6.9 g/dL (6.3-8.2) 08/31/18 09:05 Albumin 4.0 g/dL (3.5-5.0) 08/31/18 09:05 Globulin 2.9 g/dL (1.7-4.1) 08/31/18 09:05 Albumin/Globulin Ratio 1.4 (1.0-2.8) 08/31/18 09:05 Assessment and Plan (1) Endometrioid adenocarcinoma of uterus Problem details: Presented with postmenopausal bleeding. Diagnosed with endometrioid endometrial adenocarcinoma after endometrial biopsy. Status post robotic-assisted hysterectomy, bilateral salpingo-oophorectomy, and bilateral pelvic lymph node dissection. The final pathology: edometrioid carcinoma, FIGO G3, pT1b pN0 pMx (AJCC 8th ed)/FIGO stage IB. Assessment: She is now undergoing adjuvant chemotherapy with Carboplatin (AUC 5), Paclitaxel 175 mg/m2, [id number]. C1D1 was 06/22/2018. The plan is 6 cycles. The first cycle of the chemotherapy was complicated with neutropenia requiring prophylactic antibiotic Levaquin. And as a result, cycle 2 has been delayed by one week with addition of Neulasta 6 mg. Today, I reviewed all the labs today and they are appropriate for chemotherapy. Plan: 1. OK to proceed to cycle 4# Carbo (AUC 5) and Paclitaxle (175 mg/m2) 2. Neulasta 6 mg OnPro one day 1 3. Weekly CBC, BMP 4. RTC in 3 weeks, CBC, CMP and Cycle 5# (2) Chemotherapy induced neutropenia Assessment and Plan: Neutrepnia has resolved. Will continue Neulasta OnPro 6 mg on day 1 of each remaining cycles.
--- NOTE | 2018-08-31 10:05 | P.PNONC_ITS ---
PN -Subjective Interval history: Irene Snell is a 73 year old female here cycle 4# Carboplatin/Paclitaxel. She carries a diagnosis of endometrioid adenocarcinoma of the uterus, FIGO stage IB. Currently receiving treatment in the form of every 3 week carboplatin and paclitaxel. For the past cycle 3, patient has been doing well. Patient is complaining mild bilateral soreness of the thighs. Sometimes she is having some sensation of wobbling. She is doing massage herself with some help. She is complaining mild tingling of the tips of the fingers but not the tips of the toes. Patient has no problems buttoning shirts. Patient also feels weak on her legs and she is walking with a stick at home according to patient. She is afraid of collapse. She is reporting mild intermittent headache. No other new findings. Oncology History Emma, as she prefers to be called, presented with postmenopausal bleeding. 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 Preoperative CT scan and CA-125 were within normal limits. Patient underwent robotic-assisted hysterectomy, bilateral salpingo- oophorectomy, and bilateral pelvic lymph node dissection. The final pathology showed endometrioid carcinoma, FIGO G3, greatest diameter of 4.5 cm, located at the endometrium of fundus, depth of invasion of myometrial 1.7 cm with myometrial thickness of 2.5 cm, percentage of myometrial invasion 68%, negative for carcinoma at the cervix and the endocervix, no extra-uterine involvement, venous/lymphatic invasion present, no lymph node metastasis (0/16), no para- aortic lymph nodes submitted. AJCC eighth edition staging pT1b pN0 pMx, and FIGO stage IB. Postoperatively, patient was evaluated by Dr. Courtney on 05/11/2018. Dr. Díaz is had a long and in-depth discussion with the patient. Dr. Courtney recommended between 3 and 6 cycles of every 3 week carboplatin and paclitaxel depending on tolerance. The consensus from [facility] Gynecological Oncology Tumor Board was to proceed with 6 cycles with vaginal cuff brachytherapy, but would stop chemo earlier if not tolerated. Dr. Courtney also discussed with the patient about how to prevent neuropathy with consideration for wearing iced gloves and booties during Taxol infusion to help reduce the risk of neuropathy. Dr. Courtney referred the patient to [facility] for evaluation of brachytherapy in between cycle 3 and 4 of chemotherapy. Due to transportation convenience, patient was then referred to [facility] [place] [facility] for chemotherapy. She started Carboplatin (AUC 5) and Paclitaxel 175 mg/m2 on 06/22/2018. Attempted placement of Port-A-Cath on 06/15/[address] Arango. Procedure had to be abandoned due to the inability to get a guidewire to pass through into the vein. A right sided PICC line was inserted. - Patient Self-Reported Symptoms SR Constitution: Weight loss/gain SR ears, nose, mouth, throat issues: Changes in taste SR Skin issues: Hair loss or scalp prob SR Gastrointestinal issues: Poor or no appetite SR Musculoskeletal issues: Muscle weakness, Muscle pain or cramps, Difficulty walking SR Neuro issues: Lightheaded/dizzy - Additional ROS All systems PM: reviewed and no additional remarkable complaints except as stated Home Medications and Allergies Home Medications Medication Instructions Recorded Confirmed Type metformin [Glucophage] 1,000 mg PO BIDCC #360 tab 04/08/16 08/31/18 Rx glyburide 2.5 mg PO BID #60 tab 07/07/16 08/31/18 Rx losartan 50 mg tablet 50 mg PO DAILY 04/03/18 08/31/18 History simvastatin 20 mg PO BEDTIME 05/25/18 08/31/18 History lidocaine HCl [Lidocaine Viscous] 5 ml MUCOUS MEMBRANE BID-QID PRN 06/29/18 08/31/18 Rx #200 ml acetaminophen [Tylenol] 325 mg PO Q6H PRN 07/07/18 08/31/18 History Allergies Allergy/AdvReac Type Severity Reaction Status Date / Time No Known Drug Allergies Allergy Verified 06/15/18 09:34 Exam Vital signs: Vital Signs Temp Pulse Resp BP Pulse Ox 08/31/18 09:44 96.3 F L 69 16 140/78 98 Intake and Output 08/30/18 08/31/18 08/31/18 23:59 07:59 15:59 Other: Weight 69.5 kg Patient Weight 08/31/18 23:59 Weight 69.5 kg Narrative: Constitutional: WDWN, NAD, average body habitus, well groomed, pleasant and cooperative, very nervous and anxious. HEENT: NCAT, EOMI, PERRLA, anicteric sclera, MMM. Neck: Supple, symmetrical, and tracheal midline; No palpable thyromegaly and no palpable lymph nodes. Respiratory: No use of accessory muscles. Clear to auscultation, and no wheezes or rales or rubs. Cardiovascular: Regular rate and rhythm, S1 and S2 normal, no murmurs gallops or rubs. Abdomen: Soft, nontender, non-distended, bowel sounds normal, no palpable organomegaly, no hernia, no palpable masses. Lower extremities: No palpable pedal edema. Skin: no rashes, no ulcers, no petechiae Neurological: Awake and alert and oriented x3. CN II-XII grossly intact. No focal motor or sensory deficit. Psychiatric: Good judgment, good insight, normal affect, normal thought process, cooperative, no depression, very anxious and nervous Results - Labs Laboratory Last Values WBC 5.5 X10^3/uL (4.5-11.0) 08/31/18 09:05 RBC 3.40 X10^6/uL (4.0-5.2) L 08/31/18 09:05 Hgb 10.9 g/dL (12.0-16.0) L 08/31/18 09:05 Hct 31.1 % (36-46) L 08/31/18 09:05 MCV 91.4 fL (80-100) 08/31/18 09:05 MCH 32.1 PG (26-34) 08/31/18 09:05 MCHC 35.1 % (30-36) 08/31/18 09:05 RDW 18.1 % (11.6-14.8) H 08/31/18 09:05 Plt Count 273 X10^3/uL (150-400) 08/31/18 09:05 Neut % (Auto) 56.5 % (50-75) 08/31/18 09:05 Lymph % (Auto) 32.6 % (25-40) 08/31/18 09:05 [place] % (Auto) 9.6 % (3-14) 08/31/18 09:05 Eos % (Auto) 0.7 % (2-4) L 08/31/18 09:05 Baso % (Auto) 0.6 % (0-2) 08/31/18 09:05 Neut # (Auto) 3100 /uL (4819-8809) 08/31/18 09:05 Lymph # (Auto) 1800 /uL (4915-5914) 08/31/18 09:05 [place] # (Auto) 500 /uL (0-900) 08/31/18 09:05 Eos # (Auto) 0 /uL (0-450) 08/31/18 09:05 Baso # (Auto) 0 /uL (0-100) 08/31/18 09:05 Total Counted 100 07/24/18 09:00 Seg Neutrophils % 20.0 % (38-70) L 07/24/18 09:00 Band Neutrophils % 6.0 % (3-7) 07/24/18 09:00 Lymphocytes % (Manual) 34.0 % (25-45) 07/24/18 09:00 Atypical Lymphs % 6.0 % (-0) H 07/24/18 09:00 Monocytes % (Manual) 26.0 % (2-11) H 07/24/18 09:00 Eosinophils % (Manual) 8.0 % (2-4) H 07/24/18 09:00 Basophils % (Manual) 1.0 % (0-1) 07/07/18 09:45 Neutrophils # (Manual) 1118 /uL (1758-9284) L 07/24/18 09:00 Nucleated RBCs 1 #/Diff (-0) H 07/07/18 09:45 RBC Morphology Normal morphology 07/24/18 09:00 Polychromasia 1+ H 07/07/18 09:45 Anisocytosis 1+ H 07/07/18 09:45 Tear Drop Cells 1+ H 07/07/18 09:45 Sodium 141 mmol/L (137-145) 08/31/18 09:05 Potassium 3.7 mmol/L (3.4-5.1) 08/31/18 09:05 Chloride 106 mmol/L (98-107) 08/31/18 09:05 Carbon Dioxide 26 mmol/L (22-32) 08/31/18 09:05 BUN 13 mg/dL (7-17) 08/31/18 09:05 Creatinine 0.50 mg/dL (0.52-1.04) L 08/31/18 09:05 Estimated GFR > 60.0 mL/min (>60) 08/31/18 09:05 BUN/Creatinine Ratio 26.0 (6-22) H 08/31/18 09:05 Glucose 74 mg/dL (80-110) L 08/31/18 09:05 Calcium 9.2 mg/dL (8.4-10.2) 08/31/18 09:05 Total Bilirubin 0.6 mg/dL (0.2-1.3) 08/31/18 09:05 AST 22 IU/L (14-36) 08/31/18 09:05 ALT 25 IU/L (9-52) 08/31/18 09:05 Alkaline Phosphatase 63 U/L (38-126) 08/31/18 09:05 Total Protein 6.9 g/dL (6.3-8.2) 08/31/18 09:05 Albumin 4.0 g/dL (3.5-5.0) 08/31/18 09:05 Globulin 2.9 g/dL (1.7-4.1) 08/31/18 09:05 Albumin/Globulin Ratio 1.4 (1.0-2.8) 08/31/18 09:05 Assessment and Plan (1) Endometrioid adenocarcinoma of uterus Problem details: Presented with postmenopausal bleeding. Diagnosed with endometrioid endometrial adenocarcinoma after endometrial biopsy. Status post robotic-assisted hysterectomy, bilateral salpingo-oophorectomy, and bilateral pelvic lymph node dissection. The final pathology: edometrioid carcinoma, FIGO G3, pT1b pN0 pMx (AJCC 8th ed)/FIGO stage IB. Assessment: She is now undergoing adjuvant chemotherapy with Carboplatin (AUC 5), Paclitaxel 175 mg/m2, [id number]. C1D1 was 06/22/2018. The plan is 6 cycles. The first cycle of the chemotherapy was complicated with neutropenia requiring prophylactic antibiotic Levaquin. And as a result, cycle 2 has been delayed by one week with addition of Neulasta 6 mg. Today, I reviewed all the labs today and they are appropriate for chemotherapy. Plan: 1. OK to proceed to cycle 4# Carbo (AUC 5) and Paclitaxle (175 mg/m2) 2. Neulasta 6 mg OnPro one day 1 3. Weekly CBC, BMP 4. RTC in 3 weeks, CBC, CMP and Cycle 5# (2) Chemotherapy induced neutropenia Assessment and Plan: Neutrepnia has resolved. Will continue Neulasta OnPro 6 mg on day 1 of each remaining cycles.
[2018-08-31] MEDS: ACETAMINOPHEN 325 MG TABLET 650 MG PO (10:43)
[2018-08-31] MEDS: diphenhydrAMINE 25 MG TABLET PO (10:44)
[2018-08-31] MEDS: DEXAMETHASONE 20 MG in SODIUM CHLORIDE 0.9% 50 ML 220 ML IV (10:44)
[2018-08-31] MEDS: SODIUM CHLORIDE 0.9% 100 ML 21 ML IV (10:45)
[2018-08-31] MEDS: ONDANSETRON 16 MG in SODIUM CHLORIDE 0.9% 50 ML 232 ML IV (11:06)
[2018-08-31] MEDS: FAMOTIDINE 20 MG/50 ML PIGGYBACK 200 MG IV (11:40)
[2018-08-31] MEDS: FOSAPREPITANT 150 MG in SODIUM CHLORIDE 0.9% 150 ML 300 ML IV (12:01)
[2018-08-31] MEDS: DEXTROSE 5% IV (12:49)
[2018-08-31] MEDS: PACLITAXEL IV (12:49)
[2018-08-31] MEDS: CARBOPLATIN IV (16:01)
[2018-08-31] MEDS: SODIUM CHLORIDE 0.9% IV (16:01)
[2018-08-31] MEDS: PEGFILGRASTIM 6 MG/0.6 ML KIT SUBCUT (16:41)
--- NOTE | 2018-09-04 09:20 | PC.NURSE ---
Pt called with reports of N/V/D and poor intake. I suggested IVF but she his hesitant r/t transportation. We discussed taking nausea meds as recommended and trying to increase her intake as best she can. I asked her to let me know if she changed her mind and wanted to come in for IVF tomorrow we would certainly provide with the service
[2018-09-07 10:12] LABS: Hematocrit 30.6 % (36-46); Hemoglobin 10.6 g/dL (12.0-16.0); Mean Corpuscular HGB Conc 34.5 % (30-36); Mean Corpuscular Hemoglobin 32.4 PG (26-34); Mean Corpuscular Volume 93.9 fL (80-100); Platelet Count 152 X10^3/uL (150-400); Red Blood Cell Count 3.26 X10^6/uL (4.0-5.2); Red Cell Distribution Width 18.3 % (11.6-14.8); White Blood Cell Count 3.7 X10^3/uL (4.5-11.0)
[2018-09-07 10:14] LABS: Add Manual Diff / Slide Review YES
[2018-09-07] MEDS: SODIUM CHLORIDE 0.9% 1,000 ML 1000 ML IV (10:15)
[2018-09-07 10:26] LABS: Alanine Aminotransferase 28 IU/L (9-52); Albumin 4.2 g/dL (3.5-5.0); Albumin Globulin Ratio 1.4 (1.0-2.8); Alkaline Phosphatase 68 U/L (38-126); Aspartate Aminotransferase 28 IU/L (14-36); BUN Creatinine Ratio 61.7 (6-22); Bilirubin Total 0.8 mg/dL (0.2-1.3); Blood Urea Nitrogen 37 mg/dL (7-17); Calcium 9.8 mg/dL (8.4-10.2); Carbon Dioxide 24 mmol/L (22-32); Chloride 103 mmol/L (98-107); Estimated Glomerular Filt Rate > 60.0 mL/min (>60); Globulin 2.9 g/dL (1.7-4.1); Glucose 116 mg/dL (80-110); HEMOLYSIS < 15 (0-50); Potassium 3.9 mmol/L (3.4-5.1); Sodium 138 mmol/L (137-145); Total Protein 7.1 g/dL (6.3-8.2)
[2018-09-07 10:30] VITALS: BP 129/66; PULSE 71; RESP 17; TEMP 36.8; O2SAT 100
[2018-09-07 11:43] LABS: Anisocytosis 2+; Neutrophils Absolute Manual 1184 /uL (3000-5900); RBC Morphology Normal Morphology; Total Cells Counted 100
--- NOTE | 2018-09-13 14:16 | ONC.NAV ---
Description: Medical [facility] Activity: Completed a new form for pt to last the next 90-days. Pt will p/u tomorrow after her lab appt.
[2018-09-14 11:47] LABS: Add Manual Diff / Slide Review NO; Basophils Absolute Auto 0 /uL (0-100); Basophils Percent Auto 0.4 % (0-2); Eosinophils Absolute Auto 100 /uL (0-450); Eosinophils Percent Auto 0.8 % (2-4); Hematocrit 28.8 % (36-46); Hemoglobin 10.1 g/dL (12.0-16.0); Lymphocytes Absolute Auto 2500 /uL (1100-4500); Mean Corpuscular HGB Conc 35.1 % (30-36); Mean Corpuscular Hemoglobin 33.2 PG (26-34); Mean Corpuscular Volume 94.5 fL (80-100); Monocytes Absolute Auto 600 /uL (0-900); Monocytes Percent Auto 5.6 % (3-14); Neutrophils Absolute Auto 7900 /uL (1500-7000); Neutrophils Percent Auto 71.2 % (50-75); Platelet Count 187 X10^3/uL (150-400); Red Blood Cell Count 3.04 X10^6/uL (4.0-5.2); Red Cell Distribution Width 18.6 % (11.6-14.8); White Blood Cell Count 11.2 X10^3/uL (4.5-11.0)
[2018-09-14] MEDS: SODIUM CHLORIDE 0.9% 1,000 ML 1000 ML IV (11:59)
[2018-09-14 12:14] VITALS: BP 132/70; PULSE 68; RESP 18; TEMP 36.5; O2SAT 100
[2018-09-16 00:45] LABS: Alanine Aminotransferase 26 IU/L (9-52); Albumin 3.9 g/dL (3.5-5.0); Albumin Globulin Ratio 1.4 (1.0-2.8); Alkaline Phosphatase 77 U/L (38-126); Aspartate Aminotransferase 20 IU/L (14-36); Bilirubin Total 0.4 mg/dL (0.2-1.3); Blood Urea Nitrogen 17 mg/dL (7-17); Carbon Dioxide 23 mmol/L (22-32); Chloride 106 mmol/L (98-107); Estimated Glomerular Filt Rate > 60.0 mL/min (>60); Globulin 2.7 g/dL (1.7-4.1); Glucose 122 mg/dL (80-110); HEMOLYSIS < 15 (0-50); Potassium 4.4 mmol/L (3.4-5.1); Sodium 139 mmol/L (137-145); Total Protein 6.6 g/dL (6.3-8.2)
[2018-09-21 09:04] LABS: Add Manual Diff / Slide Review NO; Basophils Absolute Auto 0 /uL (0-100); Eosinophils Absolute Auto 100 /uL (0-450); Eosinophils Percent Auto 1.2 % (2-4); Hematocrit 29.3 % (36-46); Hemoglobin 10.2 g/dL (12.0-16.0); Lymphocytes Absolute Auto 1400 /uL (1100-4500); Mean Corpuscular HGB Conc 34.7 % (30-36); Mean Corpuscular Hemoglobin 33.6 PG (26-34); Mean Corpuscular Volume 96.7 fL (80-100); Monocytes Absolute Auto 700 /uL (0-900); Monocytes Percent Auto 15.3 % (3-14); Neutrophils Absolute Auto 2100 /uL (1500-7000); Neutrophils Percent Auto 49.5 % (50-75); Platelet Count 199 X10^3/uL (150-400); Red Blood Cell Count 3.03 X10^6/uL (4.0-5.2); Red Cell Distribution Width 19.1 % (11.6-14.8); White Blood Cell Count 4.3 X10^3/uL (4.5-11.0)
[2018-09-21 09:08] VITALS: BP 131/72; PULSE 61; RESP 16; TEMP 36.8; O2SAT 100
--- NOTE | 2018-09-21 09:18 | ONC.PN ---
PN -Subjective Interval history: Irene Snell is a 73 year old female here cycle 5# Carboplatin/Paclitaxel. She carries a diagnosis of endometrioid adenocarcinoma of the uterus, FIGO stage IB. Currently receiving treatment in the form of every 3 week carboplatin and paclitaxel. She said that the cycle 4 chemotherapy seems to be a little bit more difficult as it takes longer to recover. Patient denies any fever or chills. Patient did have some what she called diabetic lows. And she has reduced the dosage of the metformin by 50%. No other new complaints. Oncology History Emma, as she prefers to be called, presented with postmenopausal bleeding. 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 Preoperative CT scan and CA-125 were within normal limits. Patient underwent robotic-assisted hysterectomy, bilateral salpingo-oophorectomy, and bilateral pelvic lymph node dissection. The final pathology showed endometrioid carcinoma, FIGO G3, greatest diameter of 4.5 cm, located at the endometrium of fundus, depth of invasion of myometrial 1.7 cm with myometrial thickness of 2.5 cm, percentage of myometrial invasion 68%, negative for carcinoma at the cervix and the endocervix, no extra-uterine involvement, venous/lymphatic invasion present, no lymph node metastasis (0/16), no para-aortic lymph nodes submitted. AJCC eighth edition staging pT1b pN0 pMx, and FIGO stage IB. Postoperatively, patient was evaluated by Dr. Courtney on 05/11/2018. Dr. Díaz is had a long and in-depth discussion with the patient. Dr. Courtney recommended between 3 and 6 cycles of every 3 week carboplatin and paclitaxel depending on tolerance. The consensus from [facility] Gynecological Oncology Tumor Board was to proceed with 6 cycles with vaginal cuff brachytherapy, but would stop chemo earlier if not tolerated. Dr. Courtney also discussed with the patient about how to prevent neuropathy with consideration for wearing iced gloves and booties during Taxol infusion to help reduce the risk of neuropathy. Dr. Courtney referred the patient to [facility] for evaluation of brachytherapy in between cycle 3 and 4 of chemotherapy. Due to transportation convenience, patient was then referred to [facility] for chemotherapy. She started Carboplatin (AUC 5) and Paclitaxel 175 mg/m2 on 06/22/2018. Attempted placement of Port-A-Cath on 06/15/[address] Arango. Procedure had to be abandoned due to the inability to get a guidewire to pass through into the vein. A right sided PICC line was inserted. - Patient Self-Reported Symptoms SR Constitution: Fatigue/Malaise SR ears, nose, mouth, throat issues: Changes in taste SR Skin issues: Hair loss or scalp prob SR Gastrointestinal issues: Poor or no appetite SR Musculoskeletal issues: Bone pain SR Neuro issues: Headache SR Endocrine issues: Cold intolerance - Additional ROS All systems PM: reviewed and no additional remarkable complaints except as stated Home Medications and Allergies Home Medications Medication Instructions Recorded Confirmed Type metformin [Glucophage] 1,000 mg PO BIDCC #360 tab 04/08/16 08/31/18 Rx glyburide 2.5 mg PO BID #60 tab 07/07/16 08/31/18 Rx losartan 50 mg tablet 50 mg PO DAILY 04/03/18 08/31/18 History simvastatin 20 mg PO BEDTIME 05/25/18 08/31/18 History lidocaine HCl [Lidocaine Viscous] 5 ml MUCOUS MEMBRANE BID-QID PRN 06/29/18 08/31/18 Rx #200 ml acetaminophen [Tylenol] 325 mg PO Q6H PRN 07/07/18 08/31/18 History Allergies Allergy/AdvReac Type Severity Reaction Status Date / Time No Known Drug Allergies Allergy Verified 06/15/18 09:34 Exam Vital signs: Vital Signs Temp Pulse Resp BP Pulse Ox 09/21/18 09:08 98.2 F 61 16 131/72 100 Intake and Output 09/20/18 09/21/18 09/21/18 23:59 07:59 15:59 Other: Weight 68.7 kg Patient Weight 09/21/18 23:59 Weight 68.7 kg Results - Labs Laboratory Last Values WBC 4.3 X10^3/uL (4.5-11.0) L 09/21/18 08:45 RBC 3.03 X10^6/uL (4.0-5.2) L 09/21/18 08:45 Hgb 10.2 g/dL (12.0-16.0) L 09/21/18 08:45 Hct 29.3 % (36-46) L 09/21/18 08:45 MCV 96.7 fL (80-100) 09/21/18 08:45 MCH 33.6 PG (26-34) 09/21/18 08:45 MCHC 34.7 % (30-36) 09/21/18 08:45 RDW 19.1 % (11.6-14.8) H 09/21/18 08:45 Plt Count 199 X10^3/uL (150-400) 09/21/18 08:45 Neut % (Auto) 49.5 % (50-75) L 09/21/18 08:45 Lymph % (Auto) 33.0 % (25-40) 09/21/18 08:45 Mcculloch % (Auto) 15.3 % (3-14) H 09/21/18 08:45 Eos % (Auto) 1.2 % (2-4) L 09/21/18 08:45 Baso % (Auto) 1.0 % (0-2) 09/21/18 08:45 Neut # (Auto) 2100 /uL (0354-6670) 09/21/18 08:45 Lymph # (Auto) 1400 /uL (7231-3043) 09/21/18 08:45 Mcculloch # (Auto) 700 /uL (0-900) 09/21/18 08:45 Eos # (Auto) 100 /uL (0-450) 09/21/18 08:45 Baso # (Auto) 0 /uL (0-100) 09/21/18 08:45 Total Counted 100 09/07/18 09:32 Seg Neutrophils % 24.0 % (38-70) L 09/07/18 09:32 Band Neutrophils % 8.0 % (3-7) H 09/07/18 09:32 Lymphocytes % (Manual) 45.0 % (25-45) 09/07/18 09:32 Atypical Lymphs % 8.0 % (-0) H 09/07/18 09:32 Monocytes % (Manual) 10.0 % (2-11) 09/07/18 09:32 Eosinophils % (Manual) 4.0 % (2-4) 09/07/18 09:32 Basophils % (Manual) 1.0 % (0-1) 09/07/18 09:32 Neutrophils # (Manual) 1184 /uL (8585-0616) L 09/07/18 09:32 Nucleated RBCs 1 #/Diff (-0) H 07/07/18 09:45 RBC Morphology Normal morphology 09/07/18 09:32 Polychromasia 1+ H 07/07/18 09:45 Anisocytosis 2+ H 09/07/18 09:32 Tear Drop Cells 1+ H 07/07/18 09:45 Sodium 139 mmol/L (137-145) 09/14/18 11:40 Potassium 4.4 mmol/L (3.4-5.1) 09/14/18 11:40 Chloride 106 mmol/L (98-107) 09/14/18 11:40 Carbon Dioxide 23 mmol/L (22-32) 09/14/18 11:40 BUN 17 mg/dL (7-17) 09/14/18 11:40 Creatinine 0.50 mg/dL (0.52-1.04) L 09/14/18 11:40 Estimated GFR > 60.0 mL/min (>60) 09/14/18 11:40 BUN/Creatinine Ratio 34.0 (6-22) H 09/14/18 11:40 Glucose 122 mg/dL (80-110) H 09/14/18 11:40 Calcium 9.0 mg/dL (8.4-10.2) 09/14/18 11:40 Total Bilirubin 0.4 mg/dL (0.2-1.3) 09/14/18 11:40 AST 20 IU/L (14-36) 09/14/18 11:40 ALT 26 IU/L (9-52) 09/14/18 11:40 Alkaline Phosphatase 77 U/L (38-126) 09/14/18 11:40 Total Protein 6.6 g/dL (6.3-8.2) 09/14/18 11:40 Albumin 3.9 g/dL (3.5-5.0) 09/14/18 11:40 Globulin 2.7 g/dL (1.7-4.1) 09/14/18 11:40 Albumin/Globulin Ratio 1.4 (1.0-2.8) 09/14/18 11:40 Assessment and Plan (1) Endometrioid adenocarcinoma of uterus Problem details: Presented with postmenopausal bleeding. Diagnosed with endometrioid endometrial adenocarcinoma after endometrial biopsy. Status post robotic-assisted hysterectomy, bilateral salpingo-oophorectomy, and bilateral pelvic lymph node dissection. The final pathology: edometrioid carcinoma, FIGO G3, pT1b pN0 pMx (AJCC 8th ed)/FIGO stage IB. Assessment: She is now undergoing adjuvant chemotherapy with Carboplatin (AUC 5), Paclitaxel 175 mg/m2, [id number]. C1D1 was 06/22/2018. The plan is 6 cycles. The first cycle of the chemotherapy was complicated with neutropenia requiring prophylactic antibiotic Levaquin. And as a result, cycle 2 has been delayed by one week with addition of Neulasta 6 mg. Today, I reviewed all the labs today and they are appropriate for chemotherapy. Plan: 1. OK to proceed to cycle 5# Carbo (AUC 5) and Paclitaxle (175 mg/m2) 2. Neulasta 6 mg OnPro one day 1 3. Weekly CBC, BMP 4. RTC in 3 weeks, CBC, CMP and Cycle 5# (2) Chemotherapy induced neutropenia Assessment and Plan: Neutrepnia has resolved. Will continue Neulasta OnPro 6 mg on day 1 of each remaining cycles.
[2018-09-21 09:22] LABS: Alanine Aminotransferase 18 IU/L (9-52); Albumin 3.9 g/dL (3.5-5.0); Albumin Globulin Ratio 1.4 (1.0-2.8); Alkaline Phosphatase 65 U/L (38-126); Aspartate Aminotransferase 30 IU/L (14-36); Bilirubin Total 0.5 mg/dL (0.2-1.3); Blood Urea Nitrogen 15 mg/dL (7-17); Calcium 9.3 mg/dL (8.4-10.2); Carbon Dioxide 24 mmol/L (22-32); Chloride 105 mmol/L (98-107); Estimated Glomerular Filt Rate > 60.0 mL/min (>60); Globulin 2.7 g/dL (1.7-4.1); Glucose 130 mg/dL (80-110); HEMOLYSIS < 15 (0-50); Potassium 4.2 mmol/L (3.4-5.1); Sodium 139 mmol/L (137-145); Total Protein 6.6 g/dL (6.3-8.2)
--- NOTE | 2018-09-21 09:25 | P.PNONC_ITS ---
PN -Subjective Interval history: Irene Snell is a 73 year old female here cycle 5# Carboplatin/Paclitaxel. She carries a diagnosis of endometrioid adenocarcinoma of the uterus, FIGO stage IB. Currently receiving treatment in the form of every 3 week carboplatin and paclitaxel. She said that the cycle 4 chemotherapy seems to be a little bit more difficult as it takes longer to recover. Patient denies any fever or chills. Patient did have some what she called diabetic lows. And she has reduced the dosage of the metformin by 50%. No other new complaints. Oncology History Emma, as she prefers to be called, presented with postmenopausal bleeding. 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 Preoperative CT scan and CA-125 were within normal limits. Patient underwent robotic-assisted hysterectomy, bilateral salpingo- oophorectomy, and bilateral pelvic lymph node dissection. The final pathology showed endometrioid carcinoma, FIGO G3, greatest diameter of 4.5 cm, located at the endometrium of fundus, depth of invasion of myometrial 1.7 cm with myometrial thickness of 2.5 cm, percentage of myometrial invasion 68%, negative for carcinoma at the cervix and the endocervix, no extra-uterine involvement, venous/lymphatic invasion present, no lymph node metastasis (0/16), no para- aortic lymph nodes submitted. AJCC eighth edition staging pT1b pN0 pMx, and FIGO stage IB. Postoperatively, patient was evaluated by Dr. Courtney on 05/11/2018. Dr. Díaz is had a long and in-depth discussion with the patient. Dr. Courtney recommended between 3 and 6 cycles of every 3 week carboplatin and paclitaxel depending on tolerance. The consensus from [facility] Gynecological Oncology Tumor Board was to proceed with 6 cycles with vaginal cuff brachytherapy, but would stop chemo earlier if not tolerated. Dr. Courtney also discussed with the patient about how to prevent neuropathy with consideration for wearing iced gloves and booties during Taxol infusion to help reduce the risk of neuropathy. Dr. Courtney referred the patient to [facility] for evaluation of brachytherapy in between cycle 3 and 4 of chemotherapy. Due to transportation convenience, patient was then referred to [facility] for chemotherapy. She started Carboplatin (AUC 5) and Paclitaxel 175 mg/m2 on 06/22/2018. Attempted placement of Port-A-Cath on 06/15/[address] Arango. Procedure had to be abandoned due to the inability to get a guidewire to pass through into the vein. A right sided PICC line was inserted. - Patient Self-Reported Symptoms SR Constitution: Fatigue/Malaise SR ears, nose, mouth, throat issues: Changes in taste SR Skin issues: Hair loss or scalp prob SR Gastrointestinal issues: Poor or no appetite SR Musculoskeletal issues: Bone pain SR Neuro issues: Headache SR Endocrine issues: Cold intolerance - Additional ROS All systems PM: reviewed and no additional remarkable complaints except as stated Home Medications and Allergies Home Medications Medication Instructions Recorded Confirmed Type metformin [Glucophage] 1,000 mg PO BIDCC #360 tab 04/08/16 08/31/18 Rx glyburide 2.5 mg PO BID #60 tab 07/07/16 08/31/18 Rx losartan 50 mg tablet 50 mg PO DAILY 04/03/18 08/31/18 History simvastatin 20 mg PO BEDTIME 05/25/18 08/31/18 History lidocaine HCl [Lidocaine Viscous] 5 ml MUCOUS MEMBRANE BID-QID PRN 06/29/18 08/31/18 Rx #200 ml acetaminophen [Tylenol] 325 mg PO Q6H PRN 07/07/18 08/31/18 History Allergies Allergy/AdvReac Type Severity Reaction Status Date / Time No Known Drug Allergies Allergy Verified 06/15/18 09:34 Exam Vital signs: Vital Signs Temp Pulse Resp BP Pulse Ox 09/21/18 09:08 98.2 F 61 16 131/72 100 Intake and Output 09/20/18 09/21/18 09/21/18 23:59 07:59 15:59 Other: Weight 68.7 kg Patient Weight 09/21/18 23:59 Weight 68.7 kg Results - Labs Laboratory Last Values WBC 4.3 X10^3/uL (4.5-11.0) L 09/21/18 08:45 RBC 3.03 X10^6/uL (4.0-5.2) L 09/21/18 08:45 Hgb 10.2 g/dL (12.0-16.0) L 09/21/18 08:45 Hct 29.3 % (36-46) L 09/21/18 08:45 MCV 96.7 fL (80-100) 09/21/18 08:45 MCH 33.6 PG (26-34) 09/21/18 08:45 MCHC 34.7 % (30-36) 09/21/18 08:45 RDW 19.1 % (11.6-14.8) H 09/21/18 08:45 Plt Count 199 X10^3/uL (150-400) 09/21/18 08:45 Neut % (Auto) 49.5 % (50-75) L 09/21/18 08:45 Lymph % (Auto) 33.0 % (25-40) 09/21/18 08:45 Smyth % (Auto) 15.3 % (3-14) H 09/21/18 08:45 Eos % (Auto) 1.2 % (2-4) L 09/21/18 08:45 Baso % (Auto) 1.0 % (0-2) 09/21/18 08:45 Neut # (Auto) 2100 /uL (1408-8124) 09/21/18 08:45 Lymph # (Auto) 1400 /uL (9133-3923) 09/21/18 08:45 Smyth # (Auto) 700 /uL (0-900) 09/21/18 08:45 Eos # (Auto) 100 /uL (0-450) 09/21/18 08:45 Baso # (Auto) 0 /uL (0-100) 09/21/18 08:45 Total Counted 100 09/07/18 09:32 Seg Neutrophils % 24.0 % (38-70) L 09/07/18 09:32 Band Neutrophils % 8.0 % (3-7) H 09/07/18 09:32 Lymphocytes % (Manual) 45.0 % (25-45) 09/07/18 09:32 Atypical Lymphs % 8.0 % (-0) H 09/07/18 09:32 Monocytes % (Manual) 10.0 % (2-11) 09/07/18 09:32 Eosinophils % (Manual) 4.0 % (2-4) 09/07/18 09:32 Basophils % (Manual) 1.0 % (0-1) 09/07/18 09:32 Neutrophils # (Manual) 1184 /uL (1981-8992) L 09/07/18 09:32 Nucleated RBCs 1 #/Diff (-0) H 07/07/18 09:45 RBC Morphology Normal morphology 09/07/18 09:32 Polychromasia 1+ H 07/07/18 09:45 Anisocytosis 2+ H 09/07/18 09:32 Tear Drop Cells 1+ H 07/07/18 09:45 Sodium 139 mmol/L (137-145) 09/14/18 11:40 Potassium 4.4 mmol/L (3.4-5.1) 09/14/18 11:40 Chloride 106 mmol/L (98-107) 09/14/18 11:40 Carbon Dioxide 23 mmol/L (22-32) 09/14/18 11:40 BUN 17 mg/dL (7-17) 09/14/18 11:40 Creatinine 0.50 mg/dL (0.52-1.04) L 09/14/18 11:40 Estimated GFR > 60.0 mL/min (>60) 09/14/18 11:40 BUN/Creatinine Ratio 34.0 (6-22) H 09/14/18 11:40 Glucose 122 mg/dL (80-110) H 09/14/18 11:40 Calcium 9.0 mg/dL (8.4-10.2) 09/14/18 11:40 Total Bilirubin 0.4 mg/dL (0.2-1.3) 09/14/18 11:40 AST 20 IU/L (14-36) 09/14/18 11:40 ALT 26 IU/L (9-52) 09/14/18 11:40 Alkaline Phosphatase 77 U/L (38-126) 09/14/18 11:40 Total Protein 6.6 g/dL (6.3-8.2) 09/14/18 11:40 Albumin 3.9 g/dL (3.5-5.0) 09/14/18 11:40 Globulin 2.7 g/dL (1.7-4.1) 09/14/18 11:40 Albumin/Globulin Ratio 1.4 (1.0-2.8) 09/14/18 11:40 Assessment and Plan (1) Endometrioid adenocarcinoma of uterus Problem details: Presented with postmenopausal bleeding. Diagnosed with endometrioid endometrial adenocarcinoma after endometrial biopsy. Status post robotic-assisted hysterectomy, bilateral salpingo-oophorectomy, and bilateral pelvic lymph node dissection. The final pathology: edometrioid carcinoma, FIGO G3, pT1b pN0 pMx (AJCC 8th ed)/FIGO stage IB. Assessment: She is now undergoing adjuvant chemotherapy with Carboplatin (AUC 5), Paclitaxel 175 mg/m2, [id number]. C1D1 was 06/22/2018. The plan is 6 cycles. The first cycle of the chemotherapy was complicated with neutropenia requiring prophylactic antibiotic Levaquin. And as a result, cycle 2 has been delayed by one week with addition of Neulasta 6 mg. Today, I reviewed all the labs today and they are appropriate for chemotherapy. Plan: 1. OK to proceed to cycle 5# Carbo (AUC 5) and Paclitaxle (175 mg/m2) 2. Neulasta 6 mg OnPro one day 1 3. Weekly CBC, BMP 4. RTC in 3 weeks, CBC, CMP and Cycle 5# (2) Chemotherapy induced neutropenia Assessment and Plan: Neutrepnia has resolved. Will continue Neulasta OnPro 6 mg on day 1 of each remaining cycles.
[2018-09-21] MEDS: diphenhydrAMINE 25 MG TABLET PO (09:56)
[2018-09-21] MEDS: ACETAMINOPHEN 325 MG TABLET 650 MG PO (09:56)
[2018-09-21] MEDS: SODIUM CHLORIDE 0.9% 1,000 ML 1000 ML IV (10:00)
[2018-09-21] MEDS: FAMOTIDINE 20 MG/50 ML PIGGYBACK 200 MG IV (10:09)
[2018-09-21] MEDS: DEXAMETHASONE 20 MG in SODIUM CHLORIDE 0.9% 50 ML 220 ML IV (10:33)
[2018-09-21] MEDS: ONDANSETRON 16 MG in SODIUM CHLORIDE 0.9% 50 ML 232 ML IV (10:58)
[2018-09-21] MEDS: FOSAPREPITANT 150 MG in SODIUM CHLORIDE 0.9% 150 ML 300 ML IV (11:22)
[2018-09-21] MEDS: DEXTROSE 5% IV (12:14)
[2018-09-21] MEDS: PACLITAXEL IV (12:14)
[2018-09-21] MEDS: CARBOPLATIN IV (15:39)
[2018-09-21] MEDS: SODIUM CHLORIDE 0.9% IV (15:39)
[2018-09-21] MEDS: PEGFILGRASTIM 6 MG/0.6 ML KIT SUBCUT (15:46)
[2018-09-28 11:09] LABS: Hematocrit 27.7 % (36-46); Hemoglobin 9.9 g/dL (12.0-16.0); Mean Corpuscular HGB Conc 35.7 % (30-36); Mean Corpuscular Hemoglobin 34.9 PG (26-34); Mean Corpuscular Volume 97.7 fL (80-100); Platelet Count 96 X10^3/uL (150-400); Red Blood Cell Count 2.84 X10^6/uL (4.0-5.2); Red Cell Distribution Width 16.6 % (11.6-14.8); White Blood Cell Count 3.5 X10^3/uL (4.5-11.0)
[2018-09-28 11:11] LABS: Add Manual Diff / Slide Review YES
[2018-09-28 11:17] LABS: Alanine Aminotransferase 18 IU/L (9-52); Albumin 4.3 g/dL (3.5-5.0); Albumin Globulin Ratio 1.5 (1.0-2.8); Alkaline Phosphatase 80 U/L (38-126); Aspartate Aminotransferase 25 IU/L (14-36); Bilirubin Total 0.7 mg/dL (0.2-1.3); Blood Urea Nitrogen 23 mg/dL (7-17); Carbon Dioxide 28 mmol/L (22-32); Chloride 101 mmol/L (98-107); Estimated Glomerular Filt Rate > 60.0 mL/min (>60); Globulin 2.8 g/dL (1.7-4.1); Glucose 135 mg/dL (80-110); HEMOLYSIS < 15 (0-50); Potassium 4.1 mmol/L (3.4-5.1); Sodium 139 mmol/L (137-145); Total Protein 7.1 g/dL (6.3-8.2)
[2018-09-28] MEDS: SODIUM CHLORIDE 0.9% 1,000 ML 1000 ML IV (11:28)
[2018-09-28] MEDS: ONDANSETRON 8 MG in SODIUM CHLORIDE 0.9% 50 ML 216 ML IV (11:28)
[2018-09-28 12:26] LABS: Neutrophils Absolute Manual 805 /uL (3000-5900); Total Cells Counted 100
[2018-09-28 12:30] LABS: Anisocytosis 1+; Macrocytosis 1+
[2018-09-28 12:31] LABS: Dohle Bodies 1+; Platelet Morphology Comment NOTE
[2018-09-28 12:32] LABS: Toxic Granulation Present
[2018-10-05 11:17] LABS: Add Manual Diff / Slide Review NO; Basophils Absolute Auto 100 /uL (0-100); Basophils Percent Auto 0.7 % (0-2); Eosinophils Absolute Auto 100 /uL (0-450); Eosinophils Percent Auto 1.3 % (2-4); Hematocrit 28.4 % (36-46); Hemoglobin 9.8 g/dL (12.0-16.0); Lymphocytes Absolute Auto 1800 /uL (1100-4500); Lymphocytes Percent Auto 21.3 % (25-40); Mean Corpuscular HGB Conc 34.5 % (30-36); Mean Corpuscular Hemoglobin 34.6 PG (26-34); Mean Corpuscular Volume 100.2 fL (80-100); Monocytes Absolute Auto 700 /uL (0-900); Monocytes Percent Auto 8.3 % (3-14); Neutrophils Absolute Auto 5800 /uL (1500-7000); Neutrophils Percent Auto 68.4 % (50-75); Platelet Count 171 X10^3/uL (150-400); Red Blood Cell Count 2.83 X10^6/uL (4.0-5.2); Red Cell Distribution Width 17.1 % (11.6-14.8); White Blood Cell Count 8.5 X10^3/uL (4.5-11.0)
[2018-10-05 11:35] LABS: Alanine Aminotransferase 23 IU/L (9-52); Albumin Globulin Ratio 1.4 (1.0-2.8); Alkaline Phosphatase 87 U/L (38-126); Aspartate Aminotransferase 22 IU/L (14-36); BUN Creatinine Ratio 31.7 (6-22); Bilirubin Total 0.3 mg/dL (0.2-1.3); Blood Urea Nitrogen 19 mg/dL (7-17); Calcium 9.1 mg/dL (8.4-10.2); Carbon Dioxide 24 mmol/L (22-32); Chloride 105 mmol/L (98-107); Estimated Glomerular Filt Rate > 60.0 mL/min (>60); Globulin 2.9 g/dL (1.7-4.1); Glucose 130 mg/dL (80-110); HEMOLYSIS < 15 (0-50); Potassium 4.2 mmol/L (3.4-5.1); Sodium 140 mmol/L (137-145); Total Protein 6.9 g/dL (6.3-8.2)
--- NOTE | 2018-10-12 08:28 | ONC.PN ---
PN -Subjective Interval history: Irene Snell is a 73 year old female here cycle 6# Carboplatin/Paclitaxel. She carries a diagnosis of endometrioid adenocarcinoma of the uterus, FIGO stage IB. Currently receiving treatment in the form of every 3 week carboplatin and paclitaxel. For the past cycle, patient reported that the neuropathy seems to be getting significantly worse. Patient said that she was having problems the hands as well as with the feet. she dropped objects. No fever and no chills. No abnormal bleeding. Oncology History Emma, as she prefers to be called, presented with postmenopausal bleeding. 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 Preoperative CT scan and CA-125 were within normal limits. Patient underwent robotic-assisted hysterectomy, bilateral salpingo-oophorectomy, and bilateral pelvic lymph node dissection. The final pathology showed endometrioid carcinoma, FIGO G3, greatest diameter of 4.5 cm, located at the endometrium of fundus, depth of invasion of myometrial 1.7 cm with myometrial thickness of 2.5 cm, percentage of myometrial invasion 68%, negative for carcinoma at the cervix and the endocervix, no extra-uterine involvement, venous/lymphatic invasion present, no lymph node metastasis (0/16), no para-aortic lymph nodes submitted. AJCC eighth edition staging pT1b pN0 pMx, and FIGO stage IB. Postoperatively, patient was evaluated by Dr. Courtney on 05/11/2018. Dr. Díaz is had a long and in-depth discussion with the patient. Dr. Courtney recommended between 3 and 6 cycles of every 3 week carboplatin and paclitaxel depending on tolerance. The consensus from [facility] Gynecological Oncology Tumor Board was to proceed with 6 cycles with vaginal cuff brachytherapy, but would stop chemo earlier if not tolerated. Dr. Courtney also discussed with the patient about how to prevent neuropathy with consideration for wearing iced gloves and booties during Taxol infusion to help reduce the risk of neuropathy. Dr. Courtney referred the patient to [facility] for evaluation of brachytherapy in between cycle 3 and 4 of chemotherapy. Due to transportation convenience, patient was then referred to [facility] for chemotherapy. She started Carboplatin (AUC 5) and Paclitaxel 175 mg/m2 on 06/22/2018. Attempted placement of Port-A-Cath on 06/15/[address] Arango. Procedure had to be abandoned due to the inability to get a guidewire to pass through into the vein. A right sided PICC line was inserted. - Patient Self-Reported Symptoms SR Constitution: Fatigue/Malaise SR ears, nose, mouth, throat issues: Changes in taste SR Skin issues: Hair loss or scalp prob SR Gastrointestinal issues: Poor or no appetite SR Musculoskeletal issues: Bone pain SR Neuro issues: Headache SR Endocrine issues: Cold intolerance - Additional ROS All systems PM: reviewed and no additional remarkable complaints except as stated Home Medications and Allergies Home Medications Medication Instructions Recorded Confirmed Type losartan 50 mg tablet 50 mg PO DAILY 04/03/18 10/12/18 History simvastatin 20 mg PO BEDTIME 05/25/18 10/12/18 History lidocaine HCl [Lidocaine Viscous] 5 ml MUCOUS MEMBRANE BID-QID PRN 06/29/18 10/12/18 Rx #200 ml acetaminophen [Tylenol] 325 mg PO Q6H PRN 07/07/18 10/12/18 History metformin [Glucophage] 500 mg PO BIDCC 10/12/18 10/12/18 History Allergies Allergy/AdvReac Type Severity Reaction Status Date / Time No Known Drug Allergies Allergy Verified 06/15/18 09:34 Exam Vital signs: Last Vital Signs Temp 98 F 10/12/18 09:01 Pulse 63 10/12/18 09:01 Resp 18 10/12/18 09:01 BP 141/77 H 10/12/18 09:01 Pulse Ox 100 10/12/18 09:01 ECOG 1 Narrative: Gen: WDWN, NAD, pleasant and cooperative. Accompanied by her HEENT: NCAT, EOMI, PERRLA, anicteric sclera. Neck: Supple, No palpable thyromegaly or lymphadenopathy. Respiratory: CTAB, no wheezes audible. No JVD Cardiovascular: RRR, S1 and S2 normal, no M/G/R. Abdomen: Soft, NTND, BS normal, no palpable organomegaly Extremities: No LE pitting edema. Lymphatic: no palpable lymph nodes in the neck, axillae, or groins. Neurological: AOx3, CN II-XII grossly intact. No focal motor or sensory deficit. Psychiatric: Good judgment and insight; normal affect; normal thought process; cooperative, no depression, no anxiety. Results - Labs Laboratory Last Values WBC 4.5 X10^3/uL (4.5-11.0) 10/12/18 09:00 RBC 2.90 X10^6/uL (4.0-5.2) L 10/12/18 09:00 Hgb 9.9 g/dL (12.0-16.0) L 10/12/18 09:00 Hct 29.3 % (36-46) L 10/12/18 09:00 MCV 101.0 fL (80-100) H 10/12/18 09:00 MCH 34.3 PG (26-34) H 10/12/18 09:00 MCHC 33.9 % (30-36) 10/12/18 09:00 RDW 16.4 % (11.6-14.8) H 10/12/18 09:00 Plt Count 187 X10^3/uL (150-400) 10/12/18 09:00 Neut % (Auto) 49.6 % (50-75) L 10/12/18 09:00 Lymph % (Auto) 32.3 % (25-40) 10/12/18 09:00 Hughes % (Auto) 16.2 % (3-14) H 10/12/18 09:00 Eos % (Auto) 1.1 % (2-4) L 10/12/18 09:00 Baso % (Auto) 0.8 % (0-2) 10/12/18 09:00 Neut # (Auto) 2200 /uL (5828-8754) 10/12/18 09:00 Lymph # (Auto) 1500 /uL (2005-8927) 10/12/18 09:00 Hughes # (Auto) 700 /uL (0-900) 10/12/18 09:00 Eos # (Auto) 0 /uL (0-450) 10/12/18 09:00 Baso # (Auto) 0 /uL (0-100) 10/12/18 09:00 Total Counted 100 09/28/18 11:02 Seg Neutrophils % 16.0 % (38-70) L 09/28/18 11:02 Band Neutrophils % 7.0 % (3-7) 09/28/18 11:02 Lymphocytes % (Manual) 51.0 % (25-45) H 09/28/18 11:02 Atypical Lymphs % 8.0 % (-0) H 09/07/18 09:32 Monocytes % (Manual) 23.0 % (2-11) H 09/28/18 11:02 Eosinophils % (Manual) 1.0 % (2-4) L 09/28/18 11:02 Basophils % (Manual) 1.0 % (0-1) 09/28/18 11:02 Metamyelocytes % 1.0 % (-0) H 09/28/18 11:02 Neutrophils # (Manual) 805 /uL (5194-0399) L 09/28/18 11:02 Nucleated RBCs 1 #/Diff (-0) H 07/07/18 09:45 Toxic Granulation Present H 09/28/18 11:02 Dohle Bodies 1+ H 09/28/18 11:02 Plt Morphology Comment Note 09/28/18 11:02 RBC Morphology See below 09/28/18 11:02 Polychromasia 1+ H 07/07/18 09:45 Anisocytosis 1+ H 09/28/18 11:02 Macrocytosis 1+ H 09/28/18 11:02 Tear Drop Cells 1+ H 07/07/18 09:45 Sodium 139 mmol/L (137-145) 10/12/18 08:26 Potassium 4.0 mmol/L (3.4-5.1) 10/12/18 08:26 Chloride 104 mmol/L (98-107) 10/12/18 08:26 Carbon Dioxide 26 mmol/L (22-32) 10/12/18 08:26 BUN 15 mg/dL (7-17) 10/12/18 08:26 Creatinine 0.50 mg/dL (0.52-1.04) L 10/12/18 08:26 Estimated GFR > 60.0 mL/min (>60) 10/12/18 08:26 BUN/Creatinine Ratio 30.0 (6-22) H 10/12/18 08:26 Glucose 144 mg/dL (80-110) H 10/12/18 08:26 Calcium 9.5 mg/dL (8.4-10.2) 10/12/18 08:26 Total Bilirubin 0.6 mg/dL (0.2-1.3) 10/12/18 08:26 AST 21 IU/L (14-36) 10/12/18 08:26 ALT 16 IU/L (9-52) 10/12/18 08:26 Alkaline Phosphatase 68 U/L (38-126) 10/12/18 08:26 Total Protein 6.9 g/dL (6.3-8.2) 10/12/18 08:26 Albumin 3.9 g/dL (3.5-5.0) 10/12/18 08:26 Globulin 3.0 g/dL (1.7-4.1) 10/12/18 08:26 Albumin/Globulin Ratio 1.3 (1.0-2.8) 10/12/18 08:26 Assessment and Plan (1) Endometrioid adenocarcinoma of uterus Overview: 1. Presented with postmenopausal bleeding. Diagnosed with endometrioid endometrial adenocarcinoma after endometrial biopsy. 2. Status post robotic-assisted hysterectomy, bilateral salpingo-oophorectomy, and bilateral pelvic lymph node dissection. The final pathology: edometrioid carcinoma, FIGO G3, pT1b pN0 pMx (AJCC 8th ed)/FIGO stage IB. Assessment: She is now undergoing adjuvant chemotherapy with Carboplatin (AUC 5), Paclitaxel 175 mg/m2, [id number]. C1D1 was 06/22/2018. The plan is 6 cycles. The first cycle of the chemotherapy was complicated with neutropenia requiring prophylactic antibiotic Levaquin. And as a result, cycle 2 has been delayed by one week with addition of Neulasta 6 mg. Clinically patient is complaining a lot more worsening peripheral neuropathy affecting both hands and feet. Patient has been dropping objects. I will stop paclitaxel. We will only use carboplatin for cycle 6. Patient will continue Neulasta support. Then, patient will follow up at [facility] for brachytherapy. Plan: 1. OK to proceed to cycle 6# Carbo (AUC 5), but no Paclitaxle (175 mg/m2) 2. Neulasta 6 mg OnPro one day 1 3. Weekly CBC, BMP 4. Follow up at [facility] for brachytherapy 5. 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 Will hold paclitaxel for the last cycle of the chemotherapy. Patient voiced understanding.
--- NOTE | 2018-10-12 08:32 | P.PNONC_ITS ---
PN -Subjective Interval history: Irene Snell is a 73 year old female here cycle 6# Carboplatin/Paclitaxel. She carries a diagnosis of endometrioid adenocarcinoma of the uterus, FIGO stage IB. Currently receiving treatment in the form of every 3 week carboplatin and paclitaxel. For the past cycle, patient reported that the neuropathy seems to be getting significantly worse. Patient said that she was having problems the hands as well as with the feet. she dropped objects. No fever and no chills. No abnormal bleeding. Oncology History Emma, as she prefers to be called, presented with postmenopausal bleeding. 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 Preoperative CT scan and CA-125 were within normal limits. Patient underwent robotic-assisted hysterectomy, bilateral salpingo- oophorectomy, and bilateral pelvic lymph node dissection. The final pathology showed endometrioid carcinoma, FIGO G3, greatest diameter of 4.5 cm, located at the endometrium of fundus, depth of invasion of myometrial 1.7 cm with myometrial thickness of 2.5 cm, percentage of myometrial invasion 68%, negative for carcinoma at the cervix and the endocervix, no extra-uterine involvement, venous/lymphatic invasion present, no lymph node metastasis (0/16), no para- aortic lymph nodes submitted. AJCC eighth edition staging pT1b pN0 pMx, and FIGO stage IB. Postoperatively, patient was evaluated by Dr. Courtney on 05/11/2018. Dr. Díaz is had a long and in-depth discussion with the patient. Dr. Courtney recommended between 3 and 6 cycles of every 3 week carboplatin and paclitaxel depending on tolerance. The consensus from [facility] Gynecological Oncology Tumor Board was to proceed with 6 cycles with vaginal cuff brachytherapy, but would stop chemo earlier if not tolerated. Dr. Courtney also discussed with the patient about how to prevent neuropathy with consideration for wearing iced gloves and booties during Taxol infusion to help reduce the risk of neuropathy. Dr. Courtney referred the patient to [facility] for evaluation of brachytherapy in between cycle 3 and 4 of chemotherapy. Due to transportation convenience, patient was then referred to [facility] for chemotherapy. She started Carboplatin (AUC 5) and Paclitaxel 175 mg/m2 on 06/22/2018. Attempted placement of Port-A-Cath on 06/15/[address] Arango. Procedure had to be abandoned due to the inability to get a guidewire to pass through into the vein. A right sided PICC line was inserted. - Patient Self-Reported Symptoms SR Constitution: Fatigue/Malaise SR ears, nose, mouth, throat issues: Changes in taste SR Skin issues: Hair loss or scalp prob SR Gastrointestinal issues: Poor or no appetite SR Musculoskeletal issues: Bone pain SR Neuro issues: Headache SR Endocrine issues: Cold intolerance - Additional ROS All systems PM: reviewed and no additional remarkable complaints except as stated Home Medications and Allergies Home Medications Medication Instructions Recorded Confirmed Type losartan 50 mg tablet 50 mg PO DAILY 04/03/18 10/12/18 History simvastatin 20 mg PO BEDTIME 05/25/18 10/12/18 History lidocaine HCl [Lidocaine Viscous] 5 ml MUCOUS MEMBRANE BID-QID PRN 06/29/18 10/12/18 Rx #200 ml acetaminophen [Tylenol] 325 mg PO Q6H PRN 07/07/18 10/12/18 History metformin [Glucophage] 500 mg PO BIDCC 10/12/18 10/12/18 History Allergies Allergy/AdvReac Type Severity Reaction Status Date / Time No Known Drug Allergies Allergy Verified 06/15/18 09:34 Exam Vital signs: Last Vital Signs Temp 98 F 10/12/18 09:01 Pulse 63 10/12/18 09:01 Resp 18 10/12/18 09:01 BP 141/77 H 10/12/18 09:01 Pulse Ox 100 10/12/18 09:01 ECOG 1 Narrative: Gen: WDWN, NAD, pleasant and cooperative. Accompanied by her HEENT: NCAT, EOMI, PERRLA, anicteric sclera. Neck: Supple, No palpable thyromegaly or lymphadenopathy. Respiratory: CTAB, no wheezes audible. No JVD Cardiovascular: RRR, S1 and S2 normal, no M/G/R. Abdomen: Soft, NTND, BS normal, no palpable organomegaly Extremities: No LE pitting edema. Lymphatic: no palpable lymph nodes in the neck, axillae, or groins. Neurological: AOx3, CN II-XII grossly intact. No focal motor or sensory deficit. Psychiatric: Good judgment and insight; normal affect; normal thought process; cooperative, no depression, no anxiety. Results - Labs Laboratory Last Values WBC 4.5 X10^3/uL (4.5-11.0) 10/12/18 09:00 RBC 2.90 X10^6/uL (4.0-5.2) L 10/12/18 09:00 Hgb 9.9 g/dL (12.0-16.0) L 10/12/18 09:00 Hct 29.3 % (36-46) L 10/12/18 09:00 MCV 101.0 fL (80-100) H 10/12/18 09:00 MCH 34.3 PG (26-34) H 10/12/18 09:00 MCHC 33.9 % (30-36) 10/12/18 09:00 RDW 16.4 % (11.6-14.8) H 10/12/18 09:00 Plt Count 187 X10^3/uL (150-400) 10/12/18 09:00 Neut % (Auto) 49.6 % (50-75) L 10/12/18 09:00 Lymph % (Auto) 32.3 % (25-40) 10/12/18 09:00 [place] % (Auto) 16.2 % (3-14) H 10/12/18 09:00 Eos % (Auto) 1.1 % (2-4) L 10/12/18 09:00 Baso % (Auto) 0.8 % (0-2) 10/12/18 09:00 Neut # (Auto) 2200 /uL (4314-4095) 10/12/18 09:00 Lymph # (Auto) 1500 /uL (1278-4967) 10/12/18 09:00 [place] # (Auto) 700 /uL (0-900) 10/12/18 09:00 Eos # (Auto) 0 /uL (0-450) 10/12/18 09:00 Baso # (Auto) 0 /uL (0-100) 10/12/18 09:00 Total Counted 100 09/28/18 11:02 Seg Neutrophils % 16.0 % (38-70) L 09/28/18 11:02 Band Neutrophils % 7.0 % (3-7) 09/28/18 11:02 Lymphocytes % (Manual) 51.0 % (25-45) H 09/28/18 11:02 Atypical Lymphs % 8.0 % (-0) H 09/07/18 09:32 Monocytes % (Manual) 23.0 % (2-11) H 09/28/18 11:02 Eosinophils % (Manual) 1.0 % (2-4) L 09/28/18 11:02 Basophils % (Manual) 1.0 % (0-1) 09/28/18 11:02 Metamyelocytes % 1.0 % (-0) H 09/28/18 11:02 Neutrophils # (Manual) 805 /uL (1863-6033) L 09/28/18 11:02 Nucleated RBCs 1 #/Diff (-0) H 07/07/18 09:45 Toxic Granulation Present H 09/28/18 11:02 Dohle Bodies 1+ H 09/28/18 11:02 Plt Morphology Comment Note 09/28/18 11:02 RBC Morphology See below 09/28/18 11:02 Polychromasia 1+ H 07/07/18 09:45 Anisocytosis 1+ H 09/28/18 11:02 Macrocytosis 1+ H 09/28/18 11:02 Tear Drop Cells 1+ H 07/07/18 09:45 Sodium 139 mmol/L (137-145) 10/12/18 08:26 Potassium 4.0 mmol/L (3.4-5.1) 10/12/18 08:26 Chloride 104 mmol/L (98-107) 10/12/18 08:26 Carbon Dioxide 26 mmol/L (22-32) 10/12/18 08:26 BUN 15 mg/dL (7-17) 10/12/18 08:26 Creatinine 0.50 mg/dL (0.52-1.04) L 10/12/18 08:26 Estimated GFR > 60.0 mL/min (>60) 10/12/18 08:26 BUN/Creatinine Ratio 30.0 (6-22) H 10/12/18 08:26 Glucose 144 mg/dL (80-110) H 10/12/18 08:26 Calcium 9.5 mg/dL (8.4-10.2) 10/12/18 08:26 Total Bilirubin 0.6 mg/dL (0.2-1.3) 10/12/18 08:26 AST 21 IU/L (14-36) 10/12/18 08:26 ALT 16 IU/L (9-52) 10/12/18 08:26 Alkaline Phosphatase 68 U/L (38-126) 10/12/18 08:26 Total Protein 6.9 g/dL (6.3-8.2) 10/12/18 08:26 Albumin 3.9 g/dL (3.5-5.0) 10/12/18 08:26 Globulin 3.0 g/dL (1.7-4.1) 10/12/18 08:26 Albumin/Globulin Ratio 1.3 (1.0-2.8) 10/12/18 08:26 Assessment and Plan (1) Endometrioid adenocarcinoma of uterus Overview: 1. Presented with postmenopausal bleeding. Diagnosed with endometrioid endometrial adenocarcinoma after endometrial biopsy. 2. Status post robotic-assisted hysterectomy, bilateral salpingo-oophorectomy, and bilateral pelvic lymph node dissection. The final pathology: edometrioid carcinoma, FIGO G3, pT1b pN0 pMx (AJCC 8th ed)/FIGO stage IB. Assessment: She is now undergoing adjuvant chemotherapy with Carboplatin (AUC 5), Paclitaxel 175 mg/m2, [id number]. C1D1 was 06/22/2018. The plan is 6 cycles. The first cycle of the chemotherapy was complicated with neutropenia requiring prophylactic antibiotic Levaquin. And as a result, cycle 2 has been delayed by one week with addition of Neulasta 6 mg. Clinically patient is complaining a lot more worsening peripheral neuropathy affecting both hands and feet. Patient has been dropping objects. I will stop paclitaxel. We will only use carboplatin for cycle 6. Patient will continue Neulasta support. Then, patient will follow up at [facility] for brachytherapy. Plan: 1. OK to proceed to cycle 6# Carbo (AUC 5), but no Paclitaxle (175 mg/m2) 2. Neulasta 6 mg OnPro one day 1 3. Weekly CBC, BMP 4. Follow up at [facility] for brachytherapy 5. 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 Will hold paclitaxel for the last cycle of the chemotherapy. Patient voiced understanding.
[2018-10-12 09:01] VITALS: BP 141/77; PULSE 63; RESP 18; TEMP 36.6; O2SAT 100
[2018-10-12 09:05] LABS: Add Manual Diff / Slide Review NO; Basophils Absolute Auto 0 /uL (0-100); Basophils Percent Auto 0.8 % (0-2); Eosinophils Absolute Auto 0 /uL (0-450); Eosinophils Percent Auto 1.1 % (2-4); Hematocrit 29.3 % (36-46); Hemoglobin 9.9 g/dL (12.0-16.0); Lymphocytes Absolute Auto 1500 /uL (1100-4500); Lymphocytes Percent Auto 32.3 % (25-40); Mean Corpuscular HGB Conc 33.9 % (30-36); Mean Corpuscular Hemoglobin 34.3 PG (26-34); Monocytes Absolute Auto 700 /uL (0-900); Monocytes Percent Auto 16.2 % (3-14); Neutrophils Absolute Auto 2200 /uL (1500-7000); Neutrophils Percent Auto 49.6 % (50-75); Platelet Count 187 X10^3/uL (150-400); Red Cell Distribution Width 16.4 % (11.6-14.8); White Blood Cell Count 4.5 X10^3/uL (4.5-11.0)
[2018-10-12 09:15] LABS: Alanine Aminotransferase 16 IU/L (9-52); Albumin 3.9 g/dL (3.5-5.0); Albumin Globulin Ratio 1.3 (1.0-2.8); Alkaline Phosphatase 68 U/L (38-126); Aspartate Aminotransferase 21 IU/L (14-36); Bilirubin Total 0.6 mg/dL (0.2-1.3); Blood Urea Nitrogen 15 mg/dL (7-17); Calcium 9.5 mg/dL (8.4-10.2); Carbon Dioxide 26 mmol/L (22-32); Chloride 104 mmol/L (98-107); Estimated Glomerular Filt Rate > 60.0 mL/min (>60); Glucose 144 mg/dL (80-110); HEMOLYSIS < 15 (0-50); Sodium 139 mmol/L (137-145); Total Protein 6.9 g/dL (6.3-8.2)
[2018-10-12] MEDS: diphenhydrAMINE 25 MG TABLET PO (09:58)
[2018-10-12] MEDS: SODIUM CHLORIDE 0.9% 1,000 ML 1000 ML IV (09:59)
[2018-10-12] MEDS: ACETAMINOPHEN 325 MG TABLET 650 MG PO (09:59)
[2018-10-12] MEDS: DEXAMETHASONE 20 MG in SODIUM CHLORIDE 0.9% 50 ML 220 ML IV (09:59)
[2018-10-12] MEDS: ONDANSETRON 16 MG in SODIUM CHLORIDE 0.9% 50 ML 232 ML IV (10:26)
[2018-10-12] MEDS: FOSAPREPITANT 150 MG in SODIUM CHLORIDE 0.9% 150 ML 300 ML IV (10:46)
[2018-10-12] MEDS: CARBOPLATIN IV (11:39)
[2018-10-12] MEDS: SODIUM CHLORIDE 0.9% IV (11:39)
[2018-10-12] MEDS: PEGFILGRASTIM 6 MG/0.6 ML KIT SUBCUT (13:04)
[2018-10-12 13:29] VITALS: BP 142/81; PULSE 76; RESP 12; TEMP 36.8; O2SAT 99
--- NOTE | 2018-10-19 09:45 | ONC.SCHED ---
LAB ORDERS AND FLUID ORDER FAXED OVER TO DR. SYED'S OFFICE
[2018-11-30 14:08] VITALS: BP 130/82; PULSE 65; RESP 18; TEMP 36.2; O2SAT 98
--- NOTE | 2018-11-30 14:26 | P.PNONC_ITS ---
PN -Subjective Interval history: Irene Snell is a 73 year old female with endometrioid adenocarcinoma of the uterus. She completed adjuvant 6 cycles of Carboplatin/Paclitaxel with carboplatin only for last cycle due to neuropathy. Thereafter patient underwent brachytherapy. She presents here today for scheduled follow-up visit. Glo corcoran patient has been doing very well. Patient said that she is having some neuropathy especially in the feet but it is mild. And she does not want any medications. She denies any headache double vision or blurred vision. No shortness of breath no chest pain. No abdominal pain no diarrhea and no constipation. Oncology History Emma, as she prefers to be called, presented with postmenopausal bleeding. 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 Preoperative CT scan and CA-125 were within normal limi ts. Patient underwent robotic-assisted hysterectomy, bilateral salpingo- oophorectomy, and bilateral pelvic lymph node dissection. The final pathology showed endometrioid carcinoma, FIGO G3, greatest diameter of 4.5 cm, located at the endometrium of fundus, depth of invasion of myometrial 1.7 cm with myometrial thickness of 2.5 cm, percentage of myometrial invasion 68%, negative for carcinoma at the cervix and the endocervix, no extra-uterine involvement, venous/lymphatic invasion present, no lymph node metastasis (0/16), no para- aortic lymph nodes submitted. AJCC eighth edition staging pT1b pN0 pMx, and FIGO stage IB. Postoperatively, patient was evaluated by Dr. Courtney on 05/11/2018. Dr. Díaz is had a long and in-depth discussion with the patient. Dr. Courtney recommended between 3 and 6 cycles of every 3 week carboplatin and paclitaxel depending on tolerance. The consensus from [facility] Gynecological Oncology Tumor Board was to proceed with 6 cycles with vaginal cuff brachytherapy, but would stop chemo earlier if not tolerated. Dr. Courtney also discussed with the patient about how to prevent neuropathy with consideration for wearing iced gloves and booties during Taxol infusion to help reduce the risk of neuropathy. Dr. Courtney referred the patient to [facility] for evaluation of brachytherapy in between cycle 3 and 4 of chemotherapy. Due to transportation convenience, patient was then referred to [facility] for chemotherapy. She started Carboplatin (AUC 5) and Paclitaxel 175 mg/m2 on 06/22/2018. Attempted placement of Port-A-Cath on 06/15/[address] Arango. Procedure had to be abandoned due to the inability to get a guide wire to pass through into the vein. A right sided PICC line was inserted. - Patient Self-Reported Symptoms SR Constitution: Fatigue/Malaise SR ears, nose, mouth, throat issues: Changes in taste SR Skin issues: Hair loss or scalp prob SR Gastrointestinal issues: Diarrhea SR Genitourinary issues: Frequent urination SR Musculoskeletal issues: Bone pain SR Neuro issues: Headache SR Endocrine issues: Cold intolerance - Additional ROS All systems PM: reviewed and no additional remarkable complaints except as stated Home Medications and Allergies Home Medications Medication Instructions Recorded Confirmed Type losartan 50 mg tablet 50 mg PO DAILY 04/03/18 11/30/18 History simvastatin 20 mg PO BEDTIME 05/25/18 11/30/18 History lidocaine HCl [Lidocaine Viscous] 5 ml MUCOUS MEMBRANE BID-QID PRN 06/29/18 11/30/18 Rx #200 ml acetaminophen [Tylenol] 325 mg PO Q6H PRN 07/07/18 11/30/18 History metformin [Glucophage] 500 mg PO BIDCC 10/12/18 11/30/18 History Allergies Allergy/AdvReac Type Severity Reaction Status Date / Time No Known Drug Allergies Allergy Verified 06/15/18 09:34 Exam Vital signs: Last Vital Signs Temp 97.2 F L 11/30/18 14:08 Pulse 65 11/30/18 14:08 Resp 18 11/30/18 14:08 BP 130/82 11/30/18 14:08 Pulse Ox 98 11/30/18 14:08 ECOG 1 Narrative: en: WDWN, NAD, pleasant and cooperative. Accompanied by her HEENT: NCAT, EOMI, PERRLA, anicteric sclera. Neck: Supple, No palpable thyromegaly or lymphadenopathy. Respiratory: CTAB, no wheezes audible. No JVD Cardiovascular: RRR, S1 and S2 normal, no M/G/R. Abdomen: Soft, NTND, BS normal, no palpable organomegaly Extremities: No LE pitting edema. Lymphatic: no palpable lymph nodes in the neck, axillae, or groins. Neurological: AOx3, CN II-XII grossly intact. No focal motor or sensory deficit. Psychiatric: Good judgment and insight; normal affect; normal thought process; cooperative, no depression, no anxiety. Results - Labs Laboratory Last Values WBC 4.5 X10^3/uL (4.5-11.0) 10/12/18 09:00 RBC 2.90 X10^6/uL (4.0-5.2) L 10/12/18 09:00 Hgb 9.9 g/dL (12.0-16.0) L 10/12/18 09:00 Hct 29.3 % (36-46) L 10/12/18 09:00 MCV 101.0 fL (80-100) H 10/12/18 09:00 MCH 34.3 PG (26-34) H 10/12/18 09:00 MCHC 33.9 % (30-36) 10/12/18 09:00 RDW 16.4 % (11.6-14.8) H 10/12/18 09:00 Plt Count 187 X10^3/uL (150-400) 10/12/18 09:00 Neut % (Auto) 49.6 % (50-75) L 10/12/18 09:00 Lymph % (Auto) 32.3 % (25-40) 10/12/18 09:00 [place] % (Auto) 16.2 % (3-14) H 10/12/18 09:00 Eos % (Auto) 1.1 % (2-4) L 10/12/18 09:00 Baso % (Auto) 0.8 % (0-2) 10/12/18 09:00 Neut # (Auto) 2200 /uL (3643-6743) 10/12/18 09:00 Lymph # (Auto) 1500 /uL (2638-7996) 10/12/18 09:00 [place] # (Auto) 700 /uL (0-900) 10/12/18 09:00 Eos # (Auto) 0 /uL (0-450) 10/12/18 09:00 Baso # (Auto) 0 /uL (0-100) 10/12/18 09:00 Total Counted 100 09/28/18 11:02 Seg Neutrophils % 16.0 % (38-70) L 09/28/18 11:02 Band Neutrophils % 7.0 % (3-7) 09/28/18 11:02 Lymphocytes % (Manual) 51.0 % (25-45) H 09/28/18 11:02 Atypical Lymphs % 8.0 % (-0) H 09/07/18 09:32 Monocytes % (Manual) 23.0 % (2-11) H 09/28/18 11:02 Eosinophils % (Manual) 1.0 % (2-4) L 09/28/18 11:02 Basophils % (Manual) 1.0 % (0-1) 09/28/18 11:02 Metamyelocytes % 1.0 % (-0) H 09/28/18 11:02 Neutrophils # (Manual) 805 /uL (1475-9921) L 09/28/18 11:02 Nucleated RBCs 1 #/Diff (-0) H 07/07/18 09:45 Toxic Granulation Present H 09/28/18 11:02 Dohle Bodies 1+ H 09/28/18 11:02 Plt Morphology Comment Note 09/28/18 11:02 RBC Morphology See below 09/28/18 11:02 Polychromasia 1+ H 07/07/18 09:45 Anisocytosis 1+ H 09/28/18 11:02 Macrocytosis 1+ H 09/28/18 11:02 Tear Drop Cells 1+ H 07/07/18 09:45 Sodium 139 mmol/L (137-145) 10/12/18 08:26 Potassium 4.0 mmol/L (3.4-5.1) 10/12/18 08:26 Chloride 104 mmol/L (98-107) 10/12/18 08:26 Carbon Dioxide 26 mmol/L (22-32) 10/12/18 08:26 BUN 15 mg/dL (7-17) 10/12/18 08:26 Creatinine 0.50 mg/dL (0.52-1.04) L 10/12/18 08:26 Estimated GFR > 60.0 mL/min (>60) 10/12/18 08:26 BUN/Creatinine Ratio 30.0 (6-22) H 10/12/18 08:26 Glucose 144 mg/dL (80-110) H 10/12/18 08:26 Calcium 9.5 mg/dL (8.4-10.2) 10/12/18 08:26 Total Bilirubin 0.6 mg/dL (0.2-1.3) 10/12/18 08:26 AST 21 IU/L (14-36) 10/12/18 08:26 ALT 16 IU/L (9-52) 10/12/18 08:26 Alkaline Phosphatase 68 U/L (38-126) 10/12/18 08:26 Total Protein 6.9 g/dL (6.3-8.2) 10/12/18 08:26 Albumin 3.9 g/dL (3.5-5.0) 10/12/18 08:26 Globulin 3.0 g/dL (1.7-4.1) 10/12/18 08:26 Albumin/Globulin Ratio 1.3 (1.0-2.8) 10/12/18 08:26 Assessment and Plan (1) Endometrioid adenocarcinoma of uterus Overview: 1. Presented with postmenopausal bleeding. Diagnosed with endometrioid endometrial adenocarcinoma after endometrial biopsy. 2. Status post robotic-assisted hysterectomy, bilateral salpingo-oophorectomy, and bilateral pelvic lymph node dissection. The final pathology: edometrioid carcinoma, FIGO G3, pT1b pN0 pMx (AJCC 8th ed)/FIGO stage IB. 3. Adjuvant Carboplatin (AUC 5), Paclitaxel 175 mg/m2, [id number] [id number] from 06/22/2018 to 10/12/2018. 4. Brachytherapy at I talked with the patient that she needs to follow up with Dr. Courtney at [facility]. Patient said that she probably has an appointment already. I talked with her that I will tentatively schedule her to come back in about 6 months. I encourage her to call us any time for sooner follow-up visit if there are any new events. Patient and patient's both voiced understanding. 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 No specific intervention.
[2019-06-14 13:34] LABS: Add Manual Diff / Slide Review NO; Basophils Absolute Auto 100 /uL (0-100); Basophils Percent Auto 0.8 % (0-2); Eosinophils Absolute Auto 200 /uL (0-450); Eosinophils Percent Auto 3.5 % (2-4); Hematocrit 37.3 % (36-46); Hemoglobin 13.2 g/dL (12.0-16.0); Lymphocytes Absolute Auto 2200 /uL (1100-4500); Lymphocytes Percent Auto 32.3 % (25-40); Mean Corpuscular HGB Conc 35.5 % (30-36); Mean Corpuscular Hemoglobin 32.4 PG (26-34); Mean Corpuscular Volume 91.3 fL (80-100); Monocytes Absolute Auto 700 /uL (0-900); Monocytes Percent Auto 9.4 % (3-14); Neutrophils Absolute Auto 3700 /uL (1500-7000); Platelet Count 263 X10^3/uL (150-400); Red Blood Cell Count 4.09 X10^6/uL (4.0-5.2); Red Cell Distribution Width 13.3 % (11.6-14.8); White Blood Cell Count 6.9 X10^3/uL (4.5-11.0)
[2019-06-14 13:45] LABS: Alanine Aminotransferase 17 IU/L (<35); Albumin 4.5 g/dL (3.5-5.0); Albumin Globulin Ratio 1.5 (1.0-2.8); Alkaline Phosphatase 85 U/L (38-126); Aspartate Aminotransferase 22 IU/L (14-36); BUN Creatinine Ratio 28.8 (6-22); Bilirubin Total 0.9 mg/dL (0.2-1.3); Blood Urea Nitrogen 23 mg/dL (7-17); Calcium 9.9 mg/dL (8.4-10.2); Carbon Dioxide 27 mmol/L (22-32); Chloride 104 mmol/L (98-107); Estimated Glomerular Filt Rate > 60.0 mL/min (>60); Globulin 3.1 g/dL (1.7-4.1); Glucose 195 mg/dL (80-110); HEMOLYSIS < 15 (0-50); Potassium 4.5 mmol/L (3.4-5.1); Sodium 141 mmol/L (137-145); Total Protein 7.6 g/dL (6.3-8.2)
[2019-06-14 13:51] VITALS: BP 134/73; PULSE 70; RESP 18; TEMP 36.9; O2SAT 97
--- NOTE | 2019-06-14 14:18 | P.PNONC_ITS ---
PN -Subjective Interval history: ID/CC: Irene Snell is a 74 year old female with endometrioid adenocarcinoma of the uterus. Oncology History Emma, as she prefers to be called, presented with postmenopausal bleeding. 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 Preoperative CT scan and CA-125 were within normal limits. Patient underwent robotic-assisted hysterectomy, bilateral salpingo- oophorectomy, and bilateral pelvic lymph node dissection. The final pathology sh owed endometrioid carcinoma, FIGO G3, greatest diameter of 4.5 cm, located at the endometrium of fundus, depth of invasion of myometrial 1.7 cm with myometrial thickness of 2.5 cm, percentage of myometrial invasion 68%, negative for carcinoma at the cervix and the endocervix, no extra-uterine involvement, venous/lymphatic invasion present, no lymph node metastasis (0/16), no para- aortic lymph nodes submitted. AJCC eighth edition staging pT1b pN0 pMx, and FIGO stage IB. Postoperatively, patient was evaluated by Dr. Courtney on 05/11/2018. Dr. Díaz is had a long and in-depth discussion with the patient. Dr. Courtney recommended between 3 and 6 cycles of every 3 week carboplatin and paclitaxel depending on tolerance. The consensus from [facility] was to proceed with 6 cycles with vaginal cuff brachytherapy, but would stop chemo earlier if not tolerated. Dr. Courtney also discussed with the patient about how to prevent neuropathy with consideration for wearing iced gloves and booties during Taxol infusion to help reduce the risk of neuropathy. Dr. Courtney referred the patient to [facility] for evaluation of brachytherapy in between cycle 3 and 4 of chemotherapy. Due to transportation convenience, patient was then referred to [facility] for chemotherapy. She started Carboplatin (AUC 5) and Paclitaxel 175 mg/m2 on 06/22/2018. Attempted placement of Port-A-Cath on 06/15/[address] Arango. Procedure had to be abandoned due to the inability to get a guide wire to pass through into the vein. A right sided PICC line was inserted. On 10/12/2018, she completed adjuvant 6 cycles of Carboplatin/Paclitaxel with carboplatin only for last cycle due to neuropathy. Thereafter patient underwent high-dose rate vaginal brachytherapy completed 11/21/2018. Interim Events: Dr. Fuentes is now following. Emma reports good energy. She is still having pain in her toes, slightly better. She is having tingling of her feet when wakes up in the morning, but the neuropathy does not affect her sleep. She reports good appetite and has gained about 20 lbs since her last visit. She reports no sob, no cp no n/v, and no bleeding problems. - Patient Self-Reported Symptoms SR Constitution: Fatigue/Malaise SR ears, nose, mouth, throat issues: Changes in taste SR Skin issues: Hair loss or scalp prob SR Gastrointestinal issues: Diarrhea SR Genitourinary issues: Frequent urination SR Musculoskeletal issues: Bone pain SR Neuro issues: Headache SR Endocrine issues: Cold intolerance - Additional ROS All systems PM: reviewed and no additional remarkable complaints except as stated Home Medications and Allergies Home Medications Medication Instructions Recorded Confirmed Type losartan 50 mg tablet 50 mg PO DAILY 04/03/18 04/18/19 History simvastatin 20 mg PO BEDTIME 05/25/18 04/18/19 History metformin [Glucophage] 500 mg PO BIDCC 10/12/18 04/18/19 History Allergies Allergy/AdvReac Type Severity Reaction Status Date / Time No Known Drug Allergies Allergy Verified 04/18/19 14:04 Exam Vital signs: Vital Signs Temp Pulse Resp BP Pulse Ox 06/14/19 13:51 98.4 F 70 18 134/73 97 Intake and Output 06/13/19 06/14/19 06/14/19 23:59 07:59 15:59 Other: Weight 77.7 kg Patient Weight 06/14/19 23:59 Weight 77.7 kg - Constitutional positive no acute distress, positive obese, positive cooperative - Routine HEENT Exam Head: Present: normocephalic, atraumatic Eye: Present: EOMI, PERRL, normal accommodation. Absent: conjunctival icterus ENT: Present: mucous membranes moist - Routine Neck Exam Present: supple. Absent: lymphadenopathy, thyromegaly - Routine Chest/Breast/Axilla Exam Axillae: Absent: lymphadenopathy - Routine Respiratory Exam Present: Clear to auscultation bilaterally. Absent: wheezes - Routine Cardiovascular Exam Present: RRR, S1, S2. Absent: murmur, gallop, rubs - Routine Abdominal Exam Present: soft. Absent: tenderness, distended, organomegaly - Routine Extremities Exam Absent: edema - Routine Neurological Exam Present: alert, oriented X3, CN II-XII intact. Absent: sensory deficit, motor deficit - Routine Psychiatric Exam Present: normal affect Results - Labs Laboratory Last Values WBC 6.9 X10^3/uL (4.5-11.0) 06/14/19 13:23 RBC 4.09 X10^6/uL (4.0-5.2) 06/14/19 13:23 Hgb 13.2 g/dL (12.0-16.0) 06/14/19 13:23 Hct 37.3 % (36-46) 06/14/19 13:23 MCV 91.3 fL (80-100) 06/14/19 13:23 MCH 32.4 PG (26-34) 06/14/19 13:23 MCHC 35.5 % (30-36) 06/14/19 13:23 RDW 13.3 % (11.6-14.8) 06/14/19 13:23 Plt Count 263 X10^3/uL (150-400) 06/14/19 13:23 Neut % (Auto) 54.0 % (50-75) 06/14/19 13:23 Lymph % (Auto) 32.3 % (25-40) 06/14/19 13:23 [place] % (Auto) 9.4 % (3-14) 06/14/19 13:23 Eos % (Auto) 3.5 % (2-4) 06/14/19 13:23 Baso % (Auto) 0.8 % (0-2) 06/14/19 13:23 Neut # (Auto) 3700 /uL (4127-6454) 06/14/19 13:23 Lymph # (Auto) 2200 /uL (4411-0586) 06/14/19 13:23 [place] # (Auto) 700 /uL (0-900) 06/14/19 13:23 Eos # (Auto) 200 /uL (0-450) 06/14/19 13:23 Baso # (Auto) 100 /uL (0-100) 06/14/19 13:23 Total Counted 100 09/28/18 11:02 Seg Neutrophils % 16.0 % (38-70) L 09/28/18 11:02 Band Neutrophils % 7.0 % (3-7) 09/28/18 11:02 Lymphocytes % (Manual) 51.0 % (25-45) H 09/28/18 11:02 Atypical Lymphs % 8.0 % (-0) H 09/07/18 09:32 Monocytes % (Manual) 23.0 % (2-11) H 09/28/18 11:02 Eosinophils % (Manual) 1.0 % (2-4) L 09/28/18 11:02 Basophils % (Manual) 1.0 % (0-1) 09/28/18 11:02 Metamyelocytes % 1.0 % (-0) H 09/28/18 11:02 Neutrophils # (Manual) 805 /uL (4996-8715) L 09/28/18 11:02 Nucleated RBCs 1 #/Diff (-0) H 07/07/18 09:45 Toxic Granulation Present H 09/28/18 11:02 Dohle Bodies 1+ H 09/28/18 11:02 Plt Morphology Comment Note 09/28/18 11:02 RBC Morphology See below 09/28/18 11:02 Polychromasia 1+ H 07/07/18 09:45 Anisocytosis 1+ H 09/28/18 11:02 Macrocytosis 1+ H 09/28/18 11:02 Tear Drop Cells 1+ H 07/07/18 09:45 Sodium 141 mmol/L (137-145) 06/14/19 13:23 Potassium 4.5 mmol/L (3.4-5.1) 06/14/19 13:23 Chloride 104 mmol/L (98-107) 06/14/19 13:23 Carbon Dioxide 27 mmol/L (22-32) 06/14/19 13:23 BUN 23 mg/dL (7-17) H 06/14/19 13:23 Creatinine 0.80 mg/dL (0.52-1.04) 06/14/19 13:23 Estimated GFR > 60.0 mL/min (>60) 06/14/19 13:23 BUN/Creatinine Ratio 28.8 (6-22) H 06/14/19 13:23 Glucose 195 mg/dL (80-110) H 06/14/19 13:23 Calcium 9.9 mg/dL (8.4-10.2) 06/14/19 13:23 Total Bilirubin 0.9 mg/dL (0.2-1.3) 06/14/19 13:23 AST 22 IU/L (14-36) 06/14/19 13:23 ALT 17 IU/L (<35) 06/14/19 13:23 Alkaline Phosphatase 85 U/L (38-126) 06/14/19 13:23 Total Protein 7.6 g/dL (6.3-8.2) 06/14/19 13:23 Albumin 4.5 g/dL (3.5-5.0) 06/14/19 13:23 Globulin 3.1 g/dL (1.7-4.1) 06/14/19 13:23 Albumin/Globulin Ratio 1.5 (1.0-2.8) 06/14/19 13:23 Assessment and Plan (1) Endometrioid adenocarcinoma of uterus Overview: 1. Presented with postmenopausal bleeding. Diagnosed with endometrioid endometrial adenocarcinoma after endometrial biopsy. 2. Status post robotic-assisted hysterectomy, bilateral salpingo-oophorectomy, and bilateral pelvic lymph node dissection. The final pathology: edometrioid carcinoma, FIGO G3, pT1b pN0 pMx (AJCC 8th ed)/FIGO stage IB. 3. Adjuvant Carboplatin (AUC 5), Paclitaxel 175 mg/m2, [id number] x6 from 06/22/2018 to 10/12/2018. Carboplatin only for last cycle due to neuropathy. 4. High-dose rate vaginal brachytherapy completed 11/21/2018 at /[facility] Assessment: Clinically patient has been doing well, I don't think there's any evidence of disease recurrence or metastasis this moment. Patient currently is being followed by Dr. Fuentes. The patient prefers to continue follow-up with Dr. Fuentes. I talked with her that if there's any new change or any concern, I enc ouraged her to call us for follow-up visit. Plan: Follow up as needed. 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 No specific intervention.
== END ==
PROVIDERS: Nurse Practitioner Gerontology; PCP Family Medicine; Visit Provider Internal Medicine Hematology & Oncology
DX: C54.1 Malignant neoplasm of endometrium (principal); G62.0 Drug-induced polyneuropathy; T45.1X5A Adverse effect of antineoplastic and immunosuppressive drugs, initial encounter
CPT/HCPCS: 36415; 36591; 77001; 80048; 80053; 85025; 96360; 96361; 96365; 96367; 96372; 96374; 96375; 96413; 96415; 96417; 99205; 99214; 99215; J1100; J1453; J2405; J2505; J7060; J9045; J9267

== ENCOUNTER 2020-05-31 10:25 | Emergency (ER) | payer MEDICARE, OTHER, SELFPAY ==
[2020-05-31] VITALS (9 sets, daily range): BP systolic 116–172; BP diastolic 63–74; PULSE 62–77; RESP 18; TEMP 36.8; O2SAT 89–100; BMI 26.4
--- NOTE | 2020-05-31 10:41 | DI.CT.S_ITS ---
PROCEDURE: CT KIDNEY URETER BLADDER (KUB) INDICATIONS: R flank pain, h/o renal calculi TECHNIQUE: Noncontrast 5 mm thick sections acquired from the diaphragms to the symphysis. 5 mm thick coronal and sagittal reformats were then performed. For radiation dose reduction, the following was used: automated exposure control, adjustment of mA and/or kV according to patient size. COMPARISON: [facility], CT, CT CHEST ABD PEL W CON, 04/13/2018, 12:27. FINDINGS: Image quality: Excellent. Lung bases: Lung bases are clear. Heart size is normal. Urinary system: There is an obstructing stone seen within the distal right ureter at the right ureterovesicular junction that measures up to 5 mm, as on series 4, image 37 and on series 2 image 85. There is associated moderate right-sided hydroureter and hydronephrosis. Mild right-sided perinephric fat stranding can be seen. No nonobstructing kidney stones are seen. No left-sided hydronephrosis is seen. Both kidneys are normal in size. Bladder wall thickness is normal; no calcified bladder stones. Other solid organs: Liver is normal in size. Gallbladder has been removed. Pancreas is normal in contours. Spleen is normal in size. No adrenal nodules. Peritoneum and bowel: Unenhanced bowel loops demonstrate normal wall thickness and caliber. No free fluid or air. Nodes and vessels: No retroperitoneal or mesenteric adenopathy by size criteria. Aorta and inferior vena cava are normal in caliber. Abdominal wall: No ventral hernias. Pelvis: No free pelvic fluid. No inguinal hernias or adenopathy. This patient is status post hysterectomy. No adnexal masses are seen. Bones: No suspicious bony lesions. No vertebral body compression fractures. Mild levoconvex scoliotic curvature is noted. IMPRESSION: 5 mm obstructing stone within the right ureterovesicular junction. No nonobstructing kidney stones are seen. Incidental note is made of: Cholecystectomy Mild levoconvex lumbar scoliotic curvature Hysterectomy Dictated by: Javon Shahid M.D. on 05/31/2020 at 10:03 Approved by: Javon Shahid M.D. on 05/31/2020 at 10:07
--- NOTE | 2020-05-31 10:44 | ED_ITS ---
HPI - Back Pain/Injury <SHAN Silvestre - Last Filed: 05/31/20 16:05> General Chief Complaint: Back Pain/Injury Stated Complaint: KIDNEY STONES Time Seen by Provider: 05/31/20 10:27 Source: patient and family Limitations: no limitations History of Present Illness HPI Narrative: 75yo female with history of renal calculi, uterine cancer-in remission, presents to the ED for right flank pain that started approximately 5 days ago. Patient states the pain started gradually and has increased. She is most concerned that the pain has been 1st and is concerned. She has intermittent nausea. She denies any fevers, chills, vomiting, diarrhea, cough, chest pain, shortness of breath, or abdominal pain. Patient denies any visible blood in her urine. Related Data Home Medications Medication Instructions Recorded Confirmed losartan 50 mg tablet 50 mg PO DAILY 04/03/18 02/29/20 simvastatin 20 mg PO BEDTIME 05/25/18 02/29/20 metformin [Glucophage] 500 mg PO BIDCC 10/12/18 02/29/20 glyburide 1.25 mg tablet 1.25 mg PO DAILY 02/29/20 02/29/20 Allergies Allergy/AdvReac Type Severity Reaction Status Date / Time No Known Drug Allergies Allergy Verified 05/31/20 10:39 Review of Systems <SHAN Silvestre - Last Filed: 05/31/20 16:05> Review of Systems Narrative: REVIEW OF SYSTEMS: GENERAL: Denies fever. HENT: No head trauma. CARDIOVASCULAR: No chest pain. RESPIRATORY: No shortness of breath or cough. GASTROINTESTINAL: Reports nausea, see HPI. GENITOURINARY: Reports right flank pain, see HPI. MUSCULOSKELETAL: No pain, weakness, or trauma. INTEGUMENTARY: No rash. PSYCH: No behavior or mood changes. Patient History <SHAN Silvestre - Last Filed: 05/31/20 16:05> Medical History (Updated 05/31/20 @ 15:09 by SHAN Silvestre) Ankle pain (2011) Chicken pox (1948) Chronic cough (2011) Diabetes mellitus (2003) Glaucoma Kidney stones (~1979) Left ulnar fracture (~1989) Measles (~1951) Migraines (~1970) Mumps Pneumonia (2002) Uterine cancer Surgical History Anesthesia History of appendectomy (1984) History of cholecystectomy (1984) History of colonoscopy (06/07/17) History of hysterectomy Status post delivery (1973) Status post delivery (1975) Family History Father Diabetes mellitus Heart disease Hypertension Stroke Mother Colon cancer Heart disease Sister Age: 73 Mental health problem Stroke Brain aneurysm Heavy smoker Memory changes Nerve pain Grandfather Colon cancer Grandmother No problems noted. Grandfather No problems noted. Grandmother No problems noted. Family/Other No problems noted. Social History household members: spouse Smoking Status: Never smoker Smoking Status: Never smoker alcohol intake frequency: 0-2 drinks per day Substance Use Type: does not use Exam <SHAN Silvestre - Last Filed: 05/31/20 16:05> Initial Vital Signs Initial Vital Signs: Vital Signs Temperature 98.3 F 05/31/20 10:39 Pulse Rate 66 05/31/20 10:39 Respiratory Rate 18 05/31/20 10:39 Blood Pressure 118/68 05/31/20 10:39 Pulse Oximetry 98 05/31/20 10:39 PHYSICAL EXAMINATION: GENERAL: Awake and alert, answers questions promptly. No distress. HENT: Normocephalic, atraumatic. Hearing intact. Oral mucosa is pink and moist. EYES: Conjunctiva pink, sclera white, no periorbital swelling. CARDIOVASCULAR: S1 and S2 sounds normal. Regular rate and rhythm, no murmurs, clicks, or bruits. No pedal edema. RESPIRATORY: Normal respiratory rate, trachea midline, airway patent. No stridor, nasal flaring or accessory muscle use. Lungs are clear in all benson without wheeze, rhonchi, or crackles. GASTROINTESTINAL: Bowel sounds normoactive. Abdomen is soft and non-tender. No organomegaly, no palpable masses. GENITALURINARY: Right flank tenderness. MUSCULOSKELETAL: Normal gait and coordination. Equal tone and mass bilaterally. EXTREMITIES: CMS intact, no pedal edema. SKIN: Warm, dry, soft, appropriate color for ethnicity. No lesions, rashes, or wounds to visualized areas. NEURO: Alert and Oriented X 3. Good coordination. No ataxia, or sensory deficits, or cognitive issues. PSYCH: Appropriate affect and mood. <Zeke Conway DO - Last Filed: 05/31/20 18:18> Initial Vital Signs Initial Vital Signs: Vital Signs Temperature 98.3 F 05/31/20 10:39 Pulse Rate 66 05/31/20 10:39 Respiratory Rate 18 05/31/20 10:39 Blood Pressure 118/68 05/31/20 10:39 Pulse Oximetry 98 05/31/20 10:39 Course <Anayeli HankinsSHAN - Last Filed: 05/31/20 16:05> Course Course Narrative: 1215: I spoke with Dr. Staley from urology. Dr. Staley stated that urology does not accept patients that are not established with [facility] urology. Alerted provider that I believe this patient needs to be admitted, he recommended transferring to a facility with urology that is [facility]. Dr. Conway notified. 1435: I spoke with urology from [facility], Dr. Diez. Discussed patient's symptoms, history, and plan of care. Discussed that we do not currently have Urology on at this time. Accepted transfer. Page hospitalist. 1506: I spoke with Dr. Laurent, discussed patient's symptoms, tests normal results, plan of care. Accepts for transfer. Patient consented to transfer as well. Orders Ordered: ED Orders 05/31/20 10:40 Urine Microscopic Stat 05/31/20 10:41 CT kidney ureter bladder (KUB) Stat 05/31/20 11:07 Complete Blood Count AUTO DIFF Stat Comprehensive Metabolic Panel Stat 05/31/20 12:00 COVID19 Stat Discontinued Medications Sodium Chloride (Normal Saline 0.9%) 1,000 mls @ 1,000 mls/hr IV BOLUS ONE Stop: 05/31/20 11:40 Last Infusion: 05/31/20 12:15 Dose: 0 mls/hr Documented by: Admin: 05/31/20 11:01 Dose: 1,000 mls/hr Documented by: MMINOR Sodium Chloride (Normal Saline 0.9%) 1,000 mls @ 150 mls/hr IV CONT MIGUEL Last Infusion: 05/31/20 16:00 Dose: 150 mls/hr Documented by: Admin: 05/31/20 14:20 Dose: 150 mls/hr Documented by: KARLI Ketorolac Tromethamine (Ketorolac 60 Mg/2 Ml Vial) 15 mg IV NOW ONE Stop: 05/31/20 10:42 Last Admin: 05/31/20 11:01 Dose: 15 mg Documented by: KARLI Reevaluation(s) Reevaluation #1: Patient staffed with Dr. Conway, discussed test, test results, care. Vital Signs Vital signs: Vital Signs - 8 hr 05/31/20 10:39 05/31/20 11:14 05/31/20 11:30 Temperature 98.3 F Pulse Rate 66 64 70 Respiratory Rate 18 Blood Pressure 118/68 120/66 116/63 Pulse Oximetry 98 98 98 05/31/20 13:27 05/31/20 13:28 05/31/20 14:24 Temperature Pulse Rate 69 64 Respiratory Rate Blood Pressure 172/72 H 168/74 H Pulse Oximetry 89 L 99 98 05/31/20 14:30 05/31/20 15:00 05/31/20 15:30 Temperature Pulse Rate 66 62 77 Respiratory Rate Blood Pressure 157/68 H 142/67 H 141/68 H Pulse Oximetry 100 100 97 <Zeke Conway, DO - Last Filed: 05/31/20 18:18> Orders Ordered: ED Orders 05/31/20 10:40 Urine Microscopic Stat 05/31/20 10:41 CT kidney ureter bladder (KUB) Stat 05/31/20 11:07 Complete Blood Count AUTO DIFF Stat Comprehensive Metabolic Panel Stat 05/31/20 12:00 COVID19 Stat Discontinued Medications Sodium Chloride (Normal Saline 0.9%) 1,000 mls @ 1,000 mls/hr IV BOLUS ONE Stop: 05/31/20 11:40 Last Infusion: 05/31/20 12:15 Dose: 0 mls/hr Documented by: Admin: 05/31/20 11:01 Dose: 1,000 mls/hr Documented by: KARLI Sodium Chloride (Normal Saline 0.9%) 1,000 mls @ 150 mls/hr IV CONT MIGUEL Last Infusion: 05/31/20 16:00 Dose: 150 mls/hr Documented by: Admin: 05/31/20 14:20 Dose: 150 mls/hr Documented by: KARLI Ketorolac Tromethamine (Ketorolac 60 Mg/2 Ml Vial) 15 mg IV NOW ONE Stop: 05/31/20 10:42 Last Admin: 05/31/20 11:01 Dose: 15 mg Documented by: KARLI Vital Signs Vital signs: Vital Signs - 8 hr 05/31/20 10:39 05/31/20 11:14 05/31/20 11:30 Temperature 98.3 F Pulse Rate 66 64 70 Respiratory Rate 18 Blood Pressure 118/68 120/66 116/63 Pulse Oximetry 98 98 98 05/31/20 13:27 05/31/20 13:28 05/31/20 14:24 Temperature Pulse Rate 69 64 Respiratory Rate Blood Pressure 172/72 H 168/74 H Pulse Oximetry 89 L 99 98 05/31/20 14:30 05/31/20 15:00 05/31/20 15:30 Temperature Pulse Rate 66 62 77 Respiratory Rate Blood Pressure 157/68 H 142/67 H 141/68 H Pulse Oximetry 100 100 97 MDM - Back Pain/Injury <SHAN Silvestre - Last Filed: 05/31/20 16:05> Medical Records Attestation: I reviewed the patient's medical records. Lab Data Attestation: I reviewed the patient's lab results. Result diagrams: 05/31/20 11:07 05/31/20 11:07 Labs: Lab Results 05/31/20 05/31/20 05/31/20 Range/Units 10:40 11:07 11:07 WBC 7.3 (4.5-11.0) X10^3/uL RBC 3.98 L (4.0-5.2) X10^6/uL Hgb 12.4 (12.0-16.0) g/dL Hct 36.8 (36-46) % MCV 92.3 (80-100) fL MCH 31.2 (26-34) PG MCHC 33.8 (30-36) % RDW 13.1 (11.6-14.8) % Plt Count 236 (150-400) X10^3/uL Neut % (Auto) 69.5 (50-75) % Lymph % (Auto) 19.8 L (25-40) % Candler % (Auto) 8.9 (3-14) % Eos % (Auto) 1.3 L (2-4) % Baso % (Auto) 0.5 (0-2) % Neut # (Auto) 5100 (3122-1989) /uL Lymph # (Auto) 1400 (7470-4808) /uL Candler # (Auto) 600 (0-900) /uL Eos # (Auto) 100 (0-450) /uL Baso # (Auto) 0 (0-100) /uL Sodium 138 (137-145) mmol/L Potassium 5.0 (3.4-5.1) mmol/L Chloride 106 (98-107) mmol/L Carbon Dioxide 24 (22-32) mmol/L BUN 45 H (7-17) mg/dL Creatinine 1.95 H (0.52-1.04) mg/dL Estimated GFR 25.1 L (>60) mL/min BUN/Creatinine Ratio 23.1 H (6-22) Glucose 113 H (80-110) mg/dL Calcium 9.9 (8.4-10.2) mg/dL Total Bilirubin 0.6 (0.2-1.3) mg/dL AST 20 (14-36) IU/L ALT 13 (<35) IU/L Alkaline Phosphatase 89 (38-126) U/L Total Protein 7.9 (6.3-8.2) g/dL Albumin 4.3 (3.5-5.0) g/dL Globulin 3.6 (1.7-4.1) g/dL Albumin/Globulin Ratio 1.2 (1.0-2.8) Urine RBC None seen (0-5/HPF) Urine WBC 1-5/hpf (0-5/HPF) Urine Bacteria None seen (None) WBC Casts 1-5/lpf H (None) Ur Culture Indicated? Cult not indicated COVID-19 PCR (Negative) 05/31/20 Range/Units 12:00 WBC (4.5-11.0) X10^3/uL RBC (4.0-5.2) X10^6/uL Hgb (12.0-16.0) g/dL Hct (36-46) % MCV (80-100) fL MCH (26-34) PG MCHC (30-36) % RDW (11.6-14.8) % Plt Count (150-400) X10^3/uL Neut % (Auto) (50-75) % Lymph % (Auto) (25-40) % Candler % (Auto) (3-14) % Eos % (Auto) (2-4) % Baso % (Auto) (0-2) % Neut # (Auto) (6954-8410) /uL Lymph # (Auto) (9324-9732) /uL Candler # (Auto) (0-900) /uL Eos # (Auto) (0-450) /uL Baso # (Auto) (0-100) /uL Sodium (137-145) mmol/L Potassium (3.4-5.1) mmol/L Chloride (98-107) mmol/L Carbon Dioxide (22-32) mmol/L BUN (7-17) mg/dL Creatinine (0.52-1.04) mg/dL Estimated GFR (>60) mL/min BUN/Creatinine Ratio (6-22) Glucose (80-110) mg/dL Calcium (8.4-10.2) mg/dL Total Bilirubin (0.2-1.3) mg/dL AST (14-36) IU/L ALT (<35) IU/L Alkaline Phosphatase (38-126) U/L Total Protein (6.3-8.2) g/dL Albumin (3.5-5.0) g/dL Globulin (1.7-4.1) g/dL Albumin/Globulin Ratio (1.0-2.8) Urine RBC (0-5/HPF) Urine WBC (0-5/HPF) Urine Bacteria (None) WBC Casts (None) Ur Culture Indicated? COVID-19 PCR Negative (Negative) Urine Dip Bedside Urine Glucose Negative Bedside Urine Bilirubin - Negative Bedside Urine Ketone - Negative Urine Specific Benson 1.020 Bedside Urine Occult Blood + Bedside Urine pH 5.5 Bedside Urine Protein +/- 15 Bedside Urine Urobilinogen - Negative Bedside Urine Nitrite - Negative Bedside Urine Leukocytes - Negative Esterase Imaging Data CT KUB: Radiologist's Impression: [address] [id number] Scan ReportSigned Patient: Irene SnellCierra#: [id number]: [id number]/Sex: 75 / FDate of Service: 05/31/20Loc: EDAccession Number: [id number] Procedure: CT kidney ureter bladder (KUB) Ordering Provider: Anayeli Hankins PROCEDURE: CT KIDNEY URETER BLADDER (KUB) INDICATIONS: R flank pain, h/o renal calculi TECHNIQUE: Noncontrast 5 mm thick sections acquired from the diaphragms to the symphysis. 5 mm thick coronal and sagittal reformats were then performed. For radiation dose reduction, the following was used: automated exposure control, adjustment of mA and/or kV according to patient size. COMPARISON: [facility], CT, CT CHEST ABD PEL W CON, 04/13/2018, 12:27. FINDINGS: Image quality: Excellent. Lung bases: Lung bases are clear. Heart size is normal. Urinary system: There is an obstructing stone seen within the distal right ureter at the right ureterovesicular junction that measures up to 5 mm, as on series 4, image 37 and on series 2 image 85. There is associated moderate right-sided hydroureter and hydronephrosis. Mild right-sided perinephric fat stranding can be seen. No nonobstructing kidney stones are seen. No left-sided hydronephrosis is seen. Both kidneys are normal in size. Bladder wall thickness is normal; no calcified bladder stones. Other solid organs: Liver is normal in size. Gallbladder has been removed. Pancreas is normal in contours. Spleen is normal in size. No adrenal nodules. Peritoneum and bowel: Unenhanced bowel loops demonstrate normal wall thickness and caliber. No free fluid or air. Nodes and vessels: No retroperitoneal or mesenteric adenopathy by size criteria. Aorta and inferior vena cava are normal in caliber. Abdominal wall: No ventral hernias. Pelvis: No free pelvic fluid. No inguinal hernias or adenopathy. This patient is status post hysterectomy. No adnexal masses are seen. Bones: No suspicious bony lesions. No vertebral body compression fractures. Mild levoconvex scoliotic curvature is noted. IMPRESSION: 5 mm obstructing stone within the right ureterovesicular junction. No nonobstructing kidney stones are seen. Incidental note is made of: Cholecystectomy Mild levoconvex lumbar scoliotic curvature Hysterectomy Dictated by: Javon Shahid M.D. on 05/31/2020 at 10:03 Approved by: Javon Shahid M.D. on 05/31/2020 at 10:07 [facility] Narrative Medical decision making narrative: 75-year-old female presents emergency department for flank pain. Exam concerning for renal calculi, CT KUB ordered which reveals a 5mm obstructing stone with hydronephrosis and declining renal function. GFR of less than 25. Patient's pain was initially controlled with 15 mg of IV Toradol upon admission to the ED, fluids were given. No concern for pyelonephritis, patient is non tachycardic, afebrile, no white count. A very small amount of white blood cell casts noted in urine micro, this was not enough for culture. Most likely cross contamination. However, suggest further monitoring. Due to renal failure an obstructing stone, urology was consulted. [facility] does not have urology on-call this weekend. [facility] was consulted as [facility] does not have Urology on-call this weekend and no confirmation Neurology will return I related this information to Dr. Barajas after consulting with Dr. Conway Patient was admitted to [facility] to Dr. Laurent. Patient consulted to transfer. <Zeke Conway, DO - Last Filed: 05/31/20 18:18> Lab Data Labs: Lab Results 05/31/20 05/31/20 05/31/20 Range/Units 10:40 11:07 11:07 WBC 7.3 (4.5-11.0) X10^3/uL RBC 3.98 L (4.0-5.2) X10^6/uL Hgb 12.4 (12.0-16.0) g/dL Hct 36.8 (36-46) % MCV 92.3 (80-100) fL MCH 31.2 (26-34) PG MCHC 33.8 (30-36) % RDW 13.1 (11.6-14.8) % Plt Count 236 (150-400) X10^3/uL Neut % (Auto) 69.5 (50-75) % Lymph % (Auto) 19.8 L (25-40) % Candler % (Auto) 8.9 (3-14) % Eos % (Auto) 1.3 L (2-4) % Baso % (Auto) 0.5 (0-2) % Neut # (Auto) 5100 (3174-8892) /uL Lymph # (Auto) 1400 (7007-4737) /uL Candler # (Auto) 600 (0-900) /uL Eos # (Auto) 100 (0-450) /uL Baso # (Auto) 0 (0-100) /uL Sodium 138 (137-145) mmol/L Potassium 5.0 (3.4-5.1) mmol/L Chloride 106 (98-107) mmol/L Carbon Dioxide 24 (22-32) mmol/L BUN 45 H (7-17) mg/dL Creatinine 1.95 H (0.52-1.04) mg/dL Estimated GFR 25.1 L (>60) mL/min BUN/Creatinine Ratio 23.1 H (6-22) Glucose 113 H (80-110) mg/dL Calcium 9.9 (8.4-10.2) mg/dL Total Bilirubin 0.6 (0.2-1.3) mg/dL AST 20 (14-36) IU/L ALT 13 (<35) IU/L Alkaline Phosphatase 89 (38-126) U/L Total Protein 7.9 (6.3-8.2) g/dL Albumin 4.3 (3.5-5.0) g/dL Globulin 3.6 (1.7-4.1) g/dL Albumin/Globulin Ratio 1.2 (1.0-2.8) Urine RBC None seen (0-5/HPF) Urine WBC 1-5/hpf (0-5/HPF) Urine Bacteria None seen (None) WBC Casts 1-5/lpf H (None) Ur Culture Indicated? Cult not indicated COVID-19 PCR (Negative) 05/31/20 Range/Units 12:00 WBC (4.5-11.0) X10^3/uL RBC (4.0-5.2) X10^6/uL Hgb (12.0-16.0) g/dL Hct (36-46) % MCV (80-100) fL MCH (26-34) PG MCHC (30-36) % RDW (11.6-14.8) % Plt Count (150-400) X10^3/uL Neut % (Auto) (50-75) % Lymph % (Auto) (25-40) % Candler % (Auto) (3-14) % Eos % (Auto) (2-4) % Baso % (Auto) (0-2) % Neut # (Auto) (4450-1826) /uL Lymph # (Auto) (2775-8261) /uL Candler # (Auto) (0-900) /uL Eos # (Auto) (0-450) /uL Baso # (Auto) (0-100) /uL Sodium (137-145) mmol/L Potassium (3.4-5.1) mmol/L Chloride (98-107) mmol/L Carbon Dioxide (22-32) mmol/L BUN (7-17) mg/dL Creatinine (0.52-1.04) mg/dL Estimated GFR (>60) mL/min BUN/Creatinine Ratio (6-22) Glucose (80-110) mg/dL Calcium (8.4-10.2) mg/dL Total Bilirubin (0.2-1.3) mg/dL AST (14-36) IU/L ALT (<35) IU/L Alkaline Phosphatase (38-126) U/L Total Protein (6.3-8.2) g/dL Albumin (3.5-5.0) g/dL Globulin (1.7-4.1) g/dL Albumin/Globulin Ratio (1.0-2.8) Urine RBC (0-5/HPF) Urine WBC (0-5/HPF) Urine Bacteria (None) WBC Casts (None) Ur Culture Indicated? COVID-19 PCR Negative (Negative) Urine Dip Bedside Urine Glucose Negative Bedside Urine Bilirubin - Negative Bedside Urine Ketone - Negative Urine Specific Benson 1.020 Bedside Urine Occult Blood + Bedside Urine pH 5.5 Bedside Urine Protein +/- 15 Bedside Urine Urobilinogen - Negative Bedside Urine Nitrite - Negative Bedside Urine Leukocytes - Negative Esterase Discharge Plan Departure Patient Disposition: [facility] Clinical Impression: Hydronephrosis with renal calculous obstruction Acute renal failure Qualifiers: Acute renal failure type: unspecified Qualified Code(s): N17.9 - Acute kidney failure, unspecified Prescriptions: No Action glyburide 1.25 mg tablet 1.25 mg PO DAILY RF: 0 losartan 50 mg tablet 50 mg PO DAILY RF: 0 simvastatin 10 MG tablet 20 mg PO BEDTIME RF: 0 metformin [Glucophage] 500 MG tablet 500 mg PO BIDCC RF: 0 Referrals: Carlotta Moreira MD [Primary Care Provider] - <Zeke Conway DO - Last Filed: 05/31/20 18:18> Cosign ED Attending Cosignature Attestation: I was immediately available in the department for consultation. This documentation has been reviewed and I agree with assessment and plan. Supervised by Zeke Conway DO
[2020-05-31] MEDS: SODIUM CHLORIDE 0.9% 1,000 ML 1000 ML IV (11:01)
[2020-05-31] MEDS: KETOROLAC 60 MG/2 ML VIAL 15 MG IV (11:01)
[2020-05-31 11:23] LABS: Add Manual Diff / Slide Review NO; Basophils Absolute Auto 0 /uL (0-100); Basophils Percent Auto 0.5 % (0-2); Eosinophils Absolute Auto 100 /uL (0-450); Eosinophils Percent Auto 1.3 % (2-4); Hematocrit 36.8 % (36-46); Hemoglobin 12.4 g/dL (12.0-16.0); Lymphocytes Absolute Auto 1400 /uL (1100-4500); Lymphocytes Percent Auto 19.8 % (25-40); Mean Corpuscular HGB Conc 33.8 % (30-36); Mean Corpuscular Hemoglobin 31.2 PG (26-34); Mean Corpuscular Volume 92.3 fL (80-100); Monocytes Absolute Auto 600 /uL (0-900); Monocytes Percent Auto 8.9 % (3-14); Neutrophils Absolute Auto 5100 /uL (1500-7000); Neutrophils Percent Auto 69.5 % (50-75); Platelet Count 236 X10^3/uL (150-400); Red Blood Cell Count 3.98 X10^6/uL (4.0-5.2); Red Cell Distribution Width 13.1 % (11.6-14.8); White Blood Cell Count 7.3 X10^3/uL (4.5-11.0)
[2020-05-31 11:31] LABS: Alanine Aminotransferase 13 IU/L (<35); Albumin 4.3 g/dL (3.5-5.0); Albumin Globulin Ratio 1.2 (1.0-2.8); Alkaline Phosphatase 89 U/L (38-126); Aspartate Aminotransferase 20 IU/L (14-36); BUN Creatinine Ratio 23.1 (6-22); Bilirubin Total 0.6 mg/dL (0.2-1.3); Blood Urea Nitrogen 45 mg/dL (7-17); Calcium 9.9 mg/dL (8.4-10.2); Carbon Dioxide 24 mmol/L (22-32); Chloride 106 mmol/L (98-107); Estimated Glomerular Filt Rate 25.1 mL/min (>60); Globulin 3.6 g/dL (1.7-4.1); Glucose 113 mg/dL (80-110); HEMOLYSIS < 15 (0-50); Sodium 138 mmol/L (137-145); Total Protein 7.9 g/dL (6.3-8.2)
[2020-05-31 11:48] LABS: Bacteria Urine None Seen; RBC Urine None Seen (0-5/HPF)
[2020-05-31 11:56] LABS: WBC Urine 1-5/HPF (0-5/HPF)
[2020-05-31 11:57] LABS: Culture Indicated Urine Cult Not Indicated; White Blood Cell Casts Urine 1-5/LPF
[2020-05-31 12:25] LABS: COVID19 -Nasal RAPID Negative (Negative)
[2020-05-31] MEDS: SODIUM CHLORIDE 0.9% 1,000 ML 150 ML IV (14:20)
--- NOTE | 2020-05-31 15:39 | PC.NURSE ---
report given to NOE Mishra at [facility], #[id number]
== END 2020-05-31 16:03 | disposition short-term general hospital (02) ==
PROVIDERS: Emergency Provider Nurse Practitioner; PCP Family Medicine
DX: N13.2 Hydronephrosis with renal and ureteral calculous obstruction (principal); N17.9 Acute kidney failure, unspecified; Z87.442 Personal history of urinary calculi; R11.0 Nausea; E11.9 Type 2 diabetes mellitus without complications
CPT/HCPCS: 36415; 74176; 80053; 81003; 81015; 85025; 87635; 96361; 96374; 99284; J1885

== ENCOUNTER → 2020-10-15 09:09 | Outpatient (CLI) | payer MEDICARE, OTHER, SELFPAY ==
[2020-10-15 19:42] LABS: Add Manual Diff / Slide Review NO; Basophils Absolute Auto 100 /uL (0-100); Basophils Percent Auto 1.2 % (0-2); Eosinophils Absolute Auto 100 /uL (0-450); Eosinophils Percent Auto 2.4 % (2-4); Hematocrit 38.2 % (36-46); Hemoglobin 13.1 g/dL (12.0-16.0); Lymphocytes Absolute Auto 2100 /uL (1100-4500); Lymphocytes Percent Auto 33.4 % (25-40); Mean Corpuscular HGB Conc 34.2 % (30-36); Mean Corpuscular Hemoglobin 31.6 PG (26-34); Mean Corpuscular Volume 92.3 fL (80-100); Monocytes Absolute Auto 500 /uL (0-900); Monocytes Percent Auto 7.9 % (3-14); Neutrophils Absolute Auto 3400 /uL (1500-7000); Neutrophils Percent Auto 55.1 % (50-75); Platelet Count 256 X10^3/uL (150-400); Red Blood Cell Count 4.14 X10^6/uL (4.0-5.2); Red Cell Distribution Width 13.3 % (11.6-14.8); White Blood Cell Count 6.2 X10^3/uL (4.5-11.0)
[2020-10-15 19:56] LABS: Alanine Aminotransferase 14 IU/L (<35); Albumin Globulin Ratio 1.4 (1.0-2.8); Alkaline Phosphatase 89 U/L (38-126); Aspartate Aminotransferase 23 IU/L (14-36); BUN Creatinine Ratio 25.8 (6-22); Bilirubin Total 0.7 mg/dL (0.2-1.3); Blood Urea Nitrogen 24 mg/dL (7-17); Calcium 9.7 mg/dL (8.4-10.2); Carbon Dioxide 23 mmol/L (22-32); Chloride 110 mmol/L (98-107); Cholesterol 188 mg/dL (140-199); Estimated Glomerular Filt Rate 58.9 mL/min (>60); Globulin 2.9 g/dL (1.7-4.1); Glucose 154 mg/dL (80-110); HDL Cholesterol 50 mg/dL (40-60); HEMOLYSIS < 15 (0-50); LDL Cholesterol Calculated 98 mg/dL (<100); Potassium 4.7 mmol/L (3.4-5.1); Sodium 139 mmol/L (137-145); Total Protein 6.9 g/dL (6.3-8.2); Triglycerides 202 mg/dL (35-150)
[2020-10-15 20:08] LABS: Hemoglobin A1C% w Est Avg Glu 7.2 % (4.0-6.0)
[2020-10-15 20:14] LABS: Creatinine Urine Random 277.9 mg/dL
[2020-10-15 20:18] LABS: Microalbumi Creatinin Ratio Ur 18.3 ug/mg CR (<30); Microalbumin Urine Random 5.1 mg/dL (0-1.6)
[2020-10-15 20:23] LABS: TSH w/ Reflex to FT4 4.05 uIU/mL (0.47-4.68)
== END ==
PROVIDERS: Visit Provider Family Medicine
DX: C54.1 Malignant neoplasm of endometrium (principal); E11.29 Type 2 diabetes mellitus with other diabetic kidney complication; E78.2 Mixed hyperlipidemia; N18.31 Chronic kidney disease, stage 3a; R80.9 Proteinuria, unspecified; Z87.442 Personal history of urinary calculi
CPT/HCPCS: 80053; 80061; 82043; 82570; 83036; 84443; 85025

== ENCOUNTER → 2021-03-19 09:44 | Outpatient (CLI) | payer MEDICARE, OTHER, SELFPAY ==
[2021-03-19 18:52] LABS: Add Manual Diff / Slide Review NO; Basophils Absolute Auto 100 /uL (0-100); Eosinophils Absolute Auto 200 /uL (0-450); Eosinophils Percent Auto 2.7 % (2-4); Hematocrit 40.8 % (36-46); Hemoglobin 13.7 g/dL (12.0-16.0); Lymphocytes Absolute Auto 2200 /uL (1100-4500); Lymphocytes Percent Auto 27.2 % (25-40); Mean Corpuscular HGB Conc 33.5 % (30-36); Mean Corpuscular Hemoglobin 30.8 PG (26-34); Mean Corpuscular Volume 92.1 fL (80-100); Monocytes Absolute Auto 600 /uL (0-900); Monocytes Percent Auto 7.8 % (3-14); Neutrophils Absolute Auto 4900 /uL (1500-7000); Neutrophils Percent Auto 61.3 % (50-75); Platelet Count 296 X10^3/uL (150-400); Red Blood Cell Count 4.43 X10^6/uL (4.0-5.2)
[2021-03-19 19:00] LABS: Hemoglobin A1C% w Est Avg Glu 6.7 % (4.0-6.0)
[2021-03-19 19:11] LABS: Alanine Aminotransferase 15 IU/L (<35); Albumin 4.5 g/dL (3.5-5.0); Albumin Globulin Ratio 1.4 (1.0-2.8); Alkaline Phosphatase 92 U/L (38-126); Aspartate Aminotransferase 24 IU/L (14-36); Bilirubin Total 1.1 mg/dL (0.2-1.3); Blood Urea Nitrogen 27 mg/dL (7-17); Carbon Dioxide 24 mmol/L (22-32); Chloride 105 mmol/L (98-107); Estimated Glomerular Filt Rate 49.5 mL/min (>60); Globulin 3.3 g/dL (1.7-4.1); Glucose 134 mg/dL (80-110); HEMOLYSIS < 15 (0-50); Potassium 4.7 mmol/L (3.4-5.1); Sodium 141 mmol/L (137-145); Total Protein 7.8 g/dL (6.3-8.2)
[2021-03-19 20:19] LABS: Urine N gonorrhoeae NOT DETECTED
[2021-03-19 20:25] LABS: Urine Chlamydia NOT DETECTED
[2021-03-20 16:52] LABS: Microalbumin Urine Random 5.2 mg/dL (0-1.6)
[2021-03-20 17:36] LABS: Creatinine Urine Random 124.2 mg/dL; Microalbumi Creatinin Ratio Ur 41.8 ug/mg CR (<30)
== END ==
PROVIDERS: PCP Family Medicine; Referring Provider Family Medicine; Visit Provider Family Medicine
DX: E11.29 Type 2 diabetes mellitus with other diabetic kidney complication (principal); I10 Essential (primary) hypertension; R80.9 Proteinuria, unspecified; E11.9 Type 2 diabetes mellitus without complications
CPT/HCPCS: 80053; 82043; 82570; 83036; 85025; 87491; 87591

== ENCOUNTER → 2021-06-16 09:38 | Outpatient (CLI) | payer MEDICARE, OTHER, SELFPAY ==
[2021-06-16 18:55] LABS: Add Manual Diff / Slide Review NO; Basophils Absolute Auto 0 /uL (0-100); Basophils Percent Auto 0.7 % (0-2); Eosinophils Absolute Auto 200 /uL (0-450); Eosinophils Percent Auto 3.1 % (2-4); Hematocrit 37.4 % (36-46); Hemoglobin 12.8 g/dL (12.0-16.0); Lymphocytes Absolute Auto 1200 /uL (1100-4500); Lymphocytes Percent Auto 19.4 % (25-40); Mean Corpuscular HGB Conc 34.3 % (30-36); Mean Corpuscular Hemoglobin 30.6 PG (26-34); Mean Corpuscular Volume 89.2 fL (80-100); Monocytes Absolute Auto 600 /uL (0-900); Monocytes Percent Auto 9.5 % (3-14); Neutrophils Absolute Auto 4100 /uL (1500-7000); Neutrophils Percent Auto 67.3 % (50-75); Platelet Count 266 X10^3/uL (150-400); Red Blood Cell Count 4.19 X10^6/uL (4.0-5.2); Red Cell Distribution Width 13.1 % (11.6-14.8); White Blood Cell Count 6.1 X10^3/uL (4.5-11.0)
[2021-06-16 20:06] LABS: TSH w/ Reflex to FT4 3.81 uIU/mL (0.47-4.68)
[2021-06-16 20:14] LABS: Vitamin B12 429 pg/mL (239-931)
== END ==
PROVIDERS: PCP Family Medicine; Referring Provider Family Medicine; Visit Provider Family Medicine
DX: E11.29 Type 2 diabetes mellitus with other diabetic kidney complication (principal); E03.9 Hypothyroidism, unspecified; E53.8 Deficiency of other specified B group vitamins; E78.2 Mixed hyperlipidemia; I10 Essential (primary) hypertension; R80.9 Proteinuria, unspecified
CPT/HCPCS: 82607; 84443; 85025

== ENCOUNTER → 2021-10-05 10:52 | Outpatient (CLI) | payer MEDICARE, OTHER, SELFPAY ==
[2021-10-05 19:28] LABS: Alanine Aminotransferase 13 IU/L (<35); Albumin 4.2 g/dL (3.5-5.0); Albumin Globulin Ratio 1.3 (1.0-2.8); Alkaline Phosphatase 86 U/L (38-126); Aspartate Aminotransferase 24 IU/L (14-36); BUN Creatinine Ratio 21.7 (6-22); Bilirubin Total 0.9 mg/dL (0.2-1.3); Blood Urea Nitrogen 26 mg/dL (7-17); Calcium 9.9 mg/dL (8.4-10.2); Carbon Dioxide 25 mmol/L (22-32); Chloride 107 mmol/L (98-107); Estimated Glomerular Filt Rate 47 mL/min (>60); Globulin 3.2 g/dL (1.7-4.1); Glucose 114 mg/dL (80-110); HEMOLYSIS < 15 (0-50); Potassium 4.5 mmol/L (3.4-5.1); Sodium 140 mmol/L (137-145); Total Protein 7.4 g/dL (6.3-8.2)
[2021-10-05 19:34] LABS: Creatinine Urine Random 87.8 mg/dL
[2021-10-05 19:36] LABS: Hemoglobin A1C% w Est Avg Glu 7.1 % (4.0-6.0)
[2021-10-05 19:39] LABS: Microalbumi Creatinin Ratio Ur 84.2 ug/mg CR (<30); Microalbumin Urine Random 7.4 mg/dL (0-1.6)
[2021-10-05 20:18] LABS: Vitamin B12 > 1000 pg/mL (239-931)
== END ==
PROVIDERS: PCP Family Medicine; Visit Provider Family Medicine
DX: E11.29 Type 2 diabetes mellitus with other diabetic kidney complication (principal); E53.8 Deficiency of other specified B group vitamins; E03.9 Hypothyroidism, unspecified; N18.31 Chronic kidney disease, stage 3a; R80.9 Proteinuria, unspecified; E11.9 Type 2 diabetes mellitus without complications; N18.9 Chronic kidney disease, unspecified
CPT/HCPCS: 80053; 82043; 82570; 82607; 83036

== ENCOUNTER → 2022-01-14 13:38 | Outpatient (CLI) | payer MEDICARE, OTHER, SELFPAY ==
[2022-01-14 20:39] LABS: Add Manual Diff / Slide Review NO; Alanine Aminotransferase 31 IU/L (<35); Albumin 3.3 g/dL (3.5-5.0); Albumin Globulin Ratio 1.1 (1.0-2.8); Alkaline Phosphatase 64 U/L (38-126); Aspartate Aminotransferase 40 IU/L (14-36); Basophils Absolute Auto 0 /uL (0-100); Basophils Percent Auto 0.6 % (0-2); Bilirubin Total 0.5 mg/dL (0.2-1.3); Blood Urea Nitrogen 20 mg/dL (7-17); Calcium 7.9 mg/dL (8.4-10.2); Carbon Dioxide 15 mmol/L (22-32); Chloride 110 mmol/L (98-107); Eosinophils Absolute Auto 500 /uL (0-450); Eosinophils Percent Auto 13.2 % (2-4); Estimated Glomerular Filt Rate 38 mL/min (>60); Glucose 131 mg/dL (80-110); HEMOLYSIS 38 (0-50); Hematocrit 31.9 % (36-46); Hemoglobin 11.2 g/dL (12.0-16.0); Lymphocytes Absolute Auto 600 /uL (1100-4500); Lymphocytes Percent Auto 13.6 % (25-40); Mean Corpuscular HGB Conc 35.1 % (30-36); Mean Corpuscular Hemoglobin 30.9 PG (26-34); Mean Corpuscular Volume 88.1 fL (80-100); Monocytes Absolute Auto 500 /uL (0-900); Monocytes Percent Auto 11.8 % (3-14); Neutrophils Absolute Auto 2500 /uL (1500-7000); Neutrophils Percent Auto 60.8 % (50-75); Platelet Count 230 X10^3/uL (150-400); Potassium 4.6 mmol/L (3.4-5.1); Red Blood Cell Count 3.62 X10^6/uL (4.0-5.2); Red Cell Distribution Width 14.1 % (11.6-14.8); Sodium 134 mmol/L (137-145); Total Protein 6.3 g/dL (6.3-8.2); White Blood Cell Count 4.1 X10^3/uL (4.5-11.0)
[2022-01-14 21:08] LABS: Creatinine Urine Random 173.3 mg/dL; Microalbumi Creatinin Ratio Ur 34.6 ug/mg CR (<30)
[2022-01-14 21:25] LABS: Free T4, Direct Thyroxine 0.29 ng/dL (0.78-2.19)
== END ==
PROVIDERS: PCP Family Medicine; Visit Provider Internal Medicine
DX: C54.1 Malignant neoplasm of endometrium (principal); E11.29 Type 2 diabetes mellitus with other diabetic kidney complication; R80.9 Proteinuria, unspecified; E78.2 Mixed hyperlipidemia; I10 Essential (primary) hypertension; N18.31 Chronic kidney disease, stage 3a
CPT/HCPCS: 80053; 82043; 82570; 84439; 84443; 85025

== ENCOUNTER → 2022-01-21 12:00 | Outpatient (CLI) | payer MEDICARE, OTHER, SELFPAY ==
[2022-01-22 18:17] LABS: Add Manual Diff / Slide Review NO; Basophils Absolute Auto 100 /uL (0-100); Basophils Percent Auto 1.2 % (0-2); Eosinophils Absolute Auto 400 /uL (0-450); Eosinophils Percent Auto 8.7 % (2-4); Hematocrit 30.7 % (36-46); Hemoglobin 10.5 g/dL (12.0-16.0); Lymphocytes Absolute Auto 800 /uL (1100-4500); Lymphocytes Percent Auto 16.3 % (25-40); Mean Corpuscular HGB Conc 34.4 % (30-36); Mean Corpuscular Hemoglobin 30.6 PG (26-34); Monocytes Absolute Auto 400 /uL (0-900); Monocytes Percent Auto 8.9 % (3-14); Neutrophils Absolute Auto 3100 /uL (1500-7000); Neutrophils Percent Auto 64.9 % (50-75); Platelet Count 236 X10^3/uL (150-400); Red Blood Cell Count 3.45 X10^6/uL (4.0-5.2); Red Cell Distribution Width 14.9 % (11.6-14.8); White Blood Cell Count 4.8 X10^3/uL (4.5-11.0)
[2022-01-22 18:35] LABS: Alanine Aminotransferase 34 IU/L (<35); Albumin 3.3 g/dL (3.5-5.0); Albumin Globulin Ratio 1.1 (1.0-2.8); Alkaline Phosphatase 68 U/L (38-126); Aspartate Aminotransferase 40 IU/L (14-36); BUN Creatinine Ratio 10.2 (6-22); Bilirubin Total 0.6 mg/dL (0.2-1.3); Blood Urea Nitrogen 15 mg/dL (7-17); Calcium 8.3 mg/dL (8.4-10.2); Carbon Dioxide 24 mmol/L (22-32); Chloride 106 mmol/L (98-107); Cholesterol 223 mg/dL (140-199); Estimated Glomerular Filt Rate 37 mL/min (>60); Globulin 3.1 g/dL (1.7-4.1); Glucose 192 mg/dL (80-110); HDL Cholesterol 27 mg/dL (40-60); HEMOLYSIS < 15 (0-50); LDL Cholesterol Calculated 136 mg/dL (<100); Potassium 4.6 mmol/L (3.4-5.1); Sodium 137 mmol/L (137-145); Total Protein 6.4 g/dL (6.3-8.2); Triglycerides 301 mg/dL (35-150)
[2022-01-22 18:42] LABS: HEMOLYSIS 15 (0-50); Iron 99 ug/dL (37-170)
[2022-01-22 18:51] LABS: Hemoglobin A1C% w Est Avg Glu 6.7 % (4.0-6.0)
[2022-01-22 18:53] LABS: Percent Iron Saturation 34 % (15-50); Total Iron Binding Capacity 289 ug/dL (265-497); Transferrin 215 mg/dL (206-381)
[2022-01-22 19:01] LABS: Free T4, Direct Thyroxine 0.18 ng/dL (0.78-2.19)
[2022-01-22 19:15] LABS: Thyroid Stimulating Hormone 61.1 uIU/mL (0.47-4.68)
[2022-01-22 19:24] LABS: Vitamin B12 386 pg/mL (239-931)
== END ==
PROVIDERS: PCP Family Medicine; Visit Provider Family Medicine
DX: D64.9 Anemia, unspecified (principal); E03.9 Hypothyroidism, unspecified; E11.29 Type 2 diabetes mellitus with other diabetic kidney complication; E53.8 Deficiency of other specified B group vitamins; E78.2 Mixed hyperlipidemia; R80.9 Proteinuria, unspecified
CPT/HCPCS: 80053; 80061; 82607; 83036; 83540; 83550; 84439; 84443; 85025

== ENCOUNTER → 2022-03-15 12:06 | Outpatient (CLI) | payer MEDICARE, OTHER, SELFPAY ==
[2022-03-15 19:07] LABS: Add Manual Diff / Slide Review NO; Basophils Absolute Auto 0 /uL (0-100); Basophils Percent Auto 0.6 % (0-2); Eosinophils Absolute Auto 700 /uL (0-450); Eosinophils Percent Auto 11.3 % (2-4); Hemoglobin 12.2 g/dL (12.0-16.0); Lymphocytes Absolute Auto 1200 /uL (1100-4500); Lymphocytes Percent Auto 17.7 % (25-40); Mean Corpuscular HGB Conc 34.8 % (30-36); Mean Corpuscular Hemoglobin 32.3 PG (26-34); Mean Corpuscular Volume 92.6 fL (80-100); Monocytes Absolute Auto 500 /uL (0-900); Monocytes Percent Auto 7.8 % (3-14); Neutrophils Absolute Auto 4200 /uL (1500-7000); Neutrophils Percent Auto 62.6 % (50-75); Platelet Count 255 X10^3/uL (150-400); Red Blood Cell Count 3.78 X10^6/uL (4.0-5.2); Red Cell Distribution Width 15.2 % (11.6-14.8); White Blood Cell Count 6.6 X10^3/uL (4.5-11.0)
[2022-03-15 19:12] LABS: HEMOLYSIS < 15 (0-50); Iron 87 ug/dL (37-170)
[2022-03-15 19:13] LABS: Hemoglobin A1C% w Est Avg Glu 7.3 % (4.0-6.0)
[2022-03-15 19:20] LABS: Alanine Aminotransferase 18 IU/L (<35); Albumin Globulin Ratio 1.1 (1.0-2.8); Alkaline Phosphatase 80 U/L (38-126); Aspartate Aminotransferase 29 IU/L (14-36); BUN Creatinine Ratio 29.2 (6-22); Bilirubin Total 1.1 mg/dL (0.2-1.3); Blood Urea Nitrogen 31 mg/dL (7-17); Calcium 9.2 mg/dL (8.4-10.2); Carbon Dioxide 24 mmol/L (22-32); Chloride 100 mmol/L (98-107); Estimated Glomerular Filt Rate 54 mL/min (>60); Globulin 3.5 g/dL (1.7-4.1); Glucose 191 mg/dL (80-110); HEMOLYSIS < 15 (0-50); Sodium 136 mmol/L (137-145); Total Protein 7.5 g/dL (6.3-8.2)
[2022-03-15 19:25] LABS: Percent Iron Saturation 24 % (15-50); Total Iron Binding Capacity 361 ug/dL (265-497); Transferrin 252 mg/dL (206-381)
[2022-03-15 19:31] LABS: Free T4, Direct Thyroxine 0.51 ng/dL (0.78-2.19)
[2022-03-15 19:44] LABS: Thyroid Stimulating Hormone 61.6 uIU/mL (0.47-4.68)
[2022-03-15 20:10] LABS: Vitamin B12 617 pg/mL (239-931)
== END ==
PROVIDERS: PCP Family Medicine; Visit Provider Family Medicine
DX: E11.29 Type 2 diabetes mellitus with other diabetic kidney complication (principal); C55 Malignant neoplasm of uterus, part unspecified; D64.9 Anemia, unspecified; E03.9 Hypothyroidism, unspecified; N18.9 Chronic kidney disease, unspecified; R80.9 Proteinuria, unspecified
CPT/HCPCS: 80053; 82607; 83036; 83540; 83550; 84439; 84443; 85025

== ENCOUNTER → 2022-05-11 10:30 | Outpatient (CLI) | payer MEDICARE, OTHER, SELFPAY ==
[2022-05-11 20:12] LABS: Alanine Aminotransferase 21 IU/L (<35); Albumin Globulin Ratio 1.2 (1.0-2.8); Alkaline Phosphatase 78 U/L (38-126); Aspartate Aminotransferase 26 IU/L (14-36); BUN Creatinine Ratio 25.9 (6-22); Blood Urea Nitrogen 28 mg/dL (7-17); Calcium 9.5 mg/dL (8.4-10.2); Carbon Dioxide 27 mmol/L (22-32); Chloride 101 mmol/L (98-107); Estimated Glomerular Filt Rate 53 mL/min (>60); Globulin 3.4 g/dL (1.7-4.1); Glucose 172 mg/dL (80-110); HEMOLYSIS < 15 (0-50); Potassium 4.6 mmol/L (3.4-5.1); Sodium 139 mmol/L (137-145); Total Protein 7.4 g/dL (6.3-8.2)
[2022-05-11 20:40] LABS: Hemoglobin A1C% w Est Avg Glu 8.7 % (4.0-6.0)
[2022-05-11 20:42] LABS: Thyroid Stimulating Hormone 38.6 uIU/mL (0.47-4.68)
== END ==
PROVIDERS: PCP Family Medicine; Visit Provider Family Medicine
DX: E11.29 Type 2 diabetes mellitus with other diabetic kidney complication (principal); E03.9 Hypothyroidism, unspecified; R80.9 Proteinuria, unspecified; E11.9 Type 2 diabetes mellitus without complications
CPT/HCPCS: 80053; 83036; 84439; 84443

== ENCOUNTER → 2022-08-05 09:32 | Outpatient (CLI) | payer MEDICARE, OTHER, SELFPAY ==
[2022-08-05 20:33] LABS: Hemoglobin 13.8 g/dL (12.0-16.0); Mean Corpuscular HGB Conc 33.6 % (30-36); Mean Corpuscular Hemoglobin 31.1 PG (26-34); Mean Corpuscular Volume 92.5 fL (80-100); Platelet Count 274 X10^3/uL (150-400); Red Blood Cell Count 4.43 X10^6/uL (4.0-5.2); White Blood Cell Count 5.5 X10^3/uL (4.5-11.0)
[2022-08-05 20:35] LABS: Alanine Aminotransferase 19 IU/L (<35); Albumin 4.1 g/dL (3.5-5.0); Albumin Globulin Ratio 1.3 (1.0-2.8); Alkaline Phosphatase 84 U/L (38-126); Aspartate Aminotransferase 24 IU/L (14-36); BUN Creatinine Ratio 26.7 (6-22); Blood Urea Nitrogen 32 mg/dL (7-17); Calcium 9.3 mg/dL (8.4-10.2); Carbon Dioxide 25 mmol/L (22-32); Chloride 104 mmol/L (98-107); Cholesterol 175 mg/dL (140-199); Estimated Glomerular Filt Rate 47 mL/min (>60); Globulin 3.2 g/dL (1.7-4.1); Glucose 167 mg/dL (80-110); HDL Cholesterol 50 mg/dL (40-60); HEMOLYSIS < 15 (0-50); LDL Cholesterol Calculated 86 mg/dL (<100); Potassium 4.5 mmol/L (3.4-5.1); Sodium 138 mmol/L (137-145); Total Protein 7.3 g/dL (6.3-8.2); Triglycerides 196 mg/dL (35-150)
[2022-08-05 20:48] LABS: Free T4, Direct Thyroxine 1.59 ng/dL (0.78-2.19)
[2022-08-05 21:01] LABS: Thyroid Stimulating Hormone 10.1 uIU/mL (0.47-4.68)
[2022-08-05 21:22] LABS: Neutrophils Absolute Manual 3685 /uL (3000-5900); Total Cells Counted 100
[2022-08-05 21:23] LABS: RBC Morphology Normal Morphology
== END ==
PROVIDERS: PCP Family Medicine; Visit Provider Family Medicine
DX: E11.29 Type 2 diabetes mellitus with other diabetic kidney complication (principal); E03.9 Hypothyroidism, unspecified; R80.9 Proteinuria, unspecified
CPT/HCPCS: 80053; 80061; 83036; 84439; 84443; 85025

== ENCOUNTER → 2022-10-11 11:56 | Outpatient (CLI) | payer MEDICARE, OTHER, SELFPAY ==
[2022-10-11 20:24] LABS: Cholesterol 196 mg/dL (140-199); HDL Cholesterol 40 mg/dL (40-60); LDL Cholesterol Calculated 83 mg/dL (<100); Triglycerides 365 mg/dL (35-150)
[2022-10-11 20:46] LABS: TSH w/ Reflex to FT4 6.72 uIU/mL (0.47-4.68)
[2022-10-11 21:38] LABS: Free T4, Direct Thyroxine 1.11 ng/dL (0.78-2.19)
[2022-10-12 21:07] LABS: x Labcorp Estim. Avg Glu (eAG) 194 mg/dL (.); x Labcorp Hemoglobin A1c 8.4 % (4.8-5.6)
== END ==
PROVIDERS: PCP Family Medicine; Visit Provider Family Medicine
DX: E03.9 Hypothyroidism, unspecified (principal); E11.65 Type 2 diabetes mellitus with hyperglycemia; E78.2 Mixed hyperlipidemia; I10 Essential (primary) hypertension
CPT/HCPCS: 80061; 83036; 84439; 84443

== ENCOUNTER → 2023-01-25 11:32 | Outpatient (CLI) | payer MEDICARE, OTHER, SELFPAY ==
[2023-01-25 19:45] LABS: BUN Creatinine Ratio 22.3 (6-22); Blood Urea Nitrogen 21 mg/dL (7-17); Calcium 9.5 mg/dL (8.4-10.2); Carbon Dioxide 23 mmol/L (22-32); Chloride 104 mmol/L (98-107); Cholesterol 111 mg/dL (140-199); Estimated Glomerular Filt Rate > 60 mL/min (>60); Glucose 141 mg/dL (80-110); HDL Cholesterol 50 mg/dL (40-60); HEMOLYSIS < 15 (0-50); LDL Cholesterol Calculated 36 mg/dL (<100); Potassium 4.4 mmol/L (3.4-5.1); Sodium 139 mmol/L (137-145); Triglycerides 124 mg/dL (35-150)
[2023-01-25 19:54] LABS: Hemoglobin A1C% w Est Avg Glu 7.6 % (4.0-6.0)
[2023-01-25 20:15] LABS: TSH w/ Reflex to FT4 < 0.02 uIU/mL (0.47-4.68)
[2023-01-25 20:28] LABS: Vitamin B12 944 pg/mL (239-931)
[2023-01-25 20:43] LABS: Creatinine Urine Random 324.9 mg/dL
[2023-01-25 20:47] LABS: Free T4, Direct Thyroxine 2.46 ng/dL (0.78-2.19)
[2023-01-25 20:49] LABS: Microalbumi Creatinin Ratio Ur 32.3 ug/mg CR (<30); Microalbumin Urine Random 10.5 mg/dL (0-1.6)
== END ==
PROVIDERS: PCP Family Medicine; Visit Provider Family Medicine
DX: E11.65 Type 2 diabetes mellitus with hyperglycemia (principal); E03.9 Hypothyroidism, unspecified; E53.8 Deficiency of other specified B group vitamins; E78.2 Mixed hyperlipidemia; I10 Essential (primary) hypertension; N18.31 Chronic kidney disease, stage 3a
CPT/HCPCS: 80048; 80061; 82043; 82570; 82607; 83036; 84439; 84443

== ENCOUNTER → 2023-05-16 11:01 | Outpatient (CLI) | payer MEDICARE, OTHER, SELFPAY | PROVIDERS: PCP Family Medicine; Visit Provider Family Medicine | DX: E11.65 Type 2 diabetes mellitus with hyperglycemia (principal); E03.9 Hypothyroidism, unspecified | CPT/HCPCS: 83036; 84443 ==

== ENCOUNTER → 2023-08-31 10:22 | Outpatient (CLI) | payer MEDICARE, OTHER, SELFPAY ==
[2023-08-31 20:55] LABS: Add Manual Diff / Slide Review NO; Basophils Absolute Auto 0 /uL (0-100); Basophils Percent Auto 0.5 % (0-2); Eosinophils Absolute Auto 100 /uL (0-450); Hematocrit 40.5 % (36-46); Hemoglobin 13.9 g/dL (12.0-16.0); Lymphocytes Absolute Auto 1200 /uL (1100-4500); Lymphocytes Percent Auto 18.1 % (25-40); Mean Corpuscular HGB Conc 34.3 % (30-36); Mean Corpuscular Hemoglobin 30.5 PG (26-34); Mean Corpuscular Volume 88.9 fL (80-100); Monocytes Absolute Auto 700 /uL (0-900); Neutrophils Absolute Auto 4800 /uL (1500-7000); Neutrophils Percent Auto 69.4 % (50-75); Platelet Count 209 X10^3/uL (150-400); Red Blood Cell Count 4.56 X10^6/uL (4.0-5.2); Red Cell Distribution Width 13.1 % (11.6-14.8); White Blood Cell Count 6.9 X10^3/uL (4.5-11.0)
[2023-08-31 21:07] LABS: Alanine Aminotransferase 29 IU/L (<35); Albumin 3.7 g/dL (3.5-5.0); Albumin Globulin Ratio 1.3 (1.0-2.8); Alkaline Phosphatase 81 U/L (38-126); Aspartate Aminotransferase 32 IU/L (14-36); Bilirubin Total 1.2 mg/dL (0.2-1.3); Blood Urea Nitrogen 30 mg/dL (7-17); Calcium 9.4 mg/dL (8.4-10.2); Carbon Dioxide 26 mmol/L (22-32); Chloride 108 mmol/L (98-107); Cholesterol 118 mg/dL (140-199); Estimated Glomerular Filt Rate > 60 mL/min (>60); Globulin 2.9 g/dL (1.7-4.1); Glucose 206 mg/dL (80-110); HDL Cholesterol 53 mg/dL (40-60); HEMOLYSIS < 15 (0-50); Hemoglobin A1C% w Est Avg Glu 7.5 % (4.0-6.0); LDL Cholesterol Calculated 29 mg/dL (<100); Potassium 4.4 mmol/L (3.4-5.1); Sodium 138 mmol/L (137-145); Total Protein 6.6 g/dL (6.3-8.2); Triglycerides 182 mg/dL (35-150)
[2023-08-31 21:33] LABS: Creatinine Urine Random 85.3 mg/dL
[2023-08-31 21:36] LABS: TSH w/ Reflex to FT4 < 0.02 uIU/mL (0.47-4.68)
[2023-08-31 21:38] LABS: Microalbumi Creatinin Ratio Ur 60.9 ug/mg CR (<30); Microalbumin Urine Random 5.2 mg/dL (0-1.6)
[2023-08-31 23:32] LABS: Free T4, Direct Thyroxine 1.79 ng/dL (0.78-2.19)
== END ==
PROVIDERS: PCP Family Medicine; Visit Provider Family Medicine
DX: E78.2 Mixed hyperlipidemia (principal); E11.9 Type 2 diabetes mellitus without complications; N18.31 Chronic kidney disease, stage 3a; E03.9 Hypothyroidism, unspecified; I10 Essential (primary) hypertension
CPT/HCPCS: 80053; 80061; 82043; 82570; 83036; 84439; 84443; 85025

== ENCOUNTER 2023-10-17 08:41 | Emergency (ER) | payer MEDICARE, OTHER, SELFPAY ==
[2023-10-17] VITALS (8 sets, daily range): BP systolic 139–171; BP diastolic 63–95; PULSE 60–70; TEMP 36.2; O2SAT 94–98; BMI 25.2
--- NOTE | 2023-10-17 09:32 | ED_ITS ---
HPI - General Adult General Chief complaint: Urogenital-Female Stated complaint: per pt kidney stones Time Seen by Provider: 10/17/23 08:54 Source: patient Mode of arrival: Ambulatory History of Present Illness HPI narrative: Patient is a 78-year-old female. Three days ago she was clinically diagnosed of having a left-sided kidney stone by her primary doctor. She actually was having symptoms for several days prior to that. She stated that she had blood in her urine. Left-sided flank pain. She has had a kidney stone in the past that required a stent placement. She is on Flomax. Has been taking pain medication. She states that her pain has continued. She is still urinating. Subjective fevers. Related Data Home Medications Medication Instructions Recorded Confirmed glipizide 5 mg tablet 2.5 mg PO DAILY 09/07/23 10/14/23 Previous Rx's Medication Instructions Recorded safety needles 25 gauge x 1 (BD #30 ea 03/25/22 Eclipse) lancets 30 gauge ([employer] #200 ea 12/22/22 Plus Lancet) syringe (disposable) 3 mL (BD #20 ea 12/24/22 Luer-Sherice Syringe) diclofenac sodium 3 % topical gel 1 applic topical BID #100 grams 05/19/23 blood sugar diagnostic ([employer] #200 strips 06/09/23 Ultra Test strips) semaglutide 1 mg/dose (4 mg/3 mL) 1 mg (0.75 mL) SUBCUT QWEEK #3 mL 08/22/23 subcutaneous pen injector (Ozempic) ezetimibe 10 mg tablet (Zetia) 10 mg PO DAILY #90 tabs 09/27/23 rosuvastatin 20 mg tablet (Crestor) 20 mg PO DAILY #90 tabs 09/27/23 levothyroxine 50 mcg capsule 50 mcg PO DAILY #90 caps 10/11/23 oxycodone 5 mg tablet See Rx Instructions PO Q8H PRN 10/14/23 pain #20 tabs tamsulosin 0.4 mg capsule 0.4 mg PO BID #30 caps 10/14/23 ondansetron 4 mg disintegrating 4 mg PO Q6H PRN nausea and 10/17/23 tablet vomiting #10 tabs Allergies Allergy/AdvReac Type Severity Reaction Status Date / Time bee venom protein (honey bee) Allergy Itching, Verified 10/14/23 09:11 swelling Review of Systems Review of Systems Narrative: See HPI Constitutional Constitutional: Reports system reviewed and no additional complaints, except as documented Gastrointestinal Gastrointestinal: Reports system reviewed and no additional complaints, except as documented Genitourinary Genitourinary: Reports system reviewed and no additional complaints, except as documented Integumentary/Breasts Skin/Breast: Reports system reviewed and no additional complaints, except as documented Patient History Medical History History of nephrolithiasis Dry eyes Family history of colon cancer Left ulnar fracture (~1989) Glaucoma Pneumonia (2002) Kidney stones (~1979) Chicken pox (194) Measles (~1951) Mumps Ankle pain (2011) Migraines (~1970) Chronic cough (2011) Diabetes mellitus (09/03/14) Surgical History History of hysterectomy History of colonoscopy (06/07/17) Anesthesia History of appendectomy (1984) History of cholecystectomy (1984) Status post delivery (1975) Status post delivery (1973) Family History Father Diabetes mellitus Heart disease Hypertension Stroke Mother Colon cancer Heart disease Sister Age: 76 Mental health problem Stroke Brain aneurysm Heavy smoker Memory changes Nerve pain Grandfather Colon cancer Grandmother No problems noted. Grandfather No problems noted. Grandmother No problems noted. Family/Other No problems noted. Social History household members: spouse Smoking Status: Never smoker Smoking Status: Never smoker alcohol intake frequency: holidays/special occasions only Substance Use Type: does not use Exam Initial Vital Signs Initial Vital Signs: Vital Signs Temperature 97.1 F L 10/17/23 08:52 Const General: cooperative, comfortable and No ill appearing Resp Effort & Inspection: normal respiratory effort Cardio Rate: regular rate GI Inspection: normal to inspection and non-distended Skin General: no rashes or lesions noted Neuro General: patient alert, patient awake and moves all extremities Extrem General: normal to inspection and capillary refill normal Course Orders Ordered: ED Orders 10/17/23 09:15 Urine Microscopic Stat 10/17/23 09:30 Basic Metabolic Panel Stat Complete Blood Count AUTO DIFF Stat 10/17/23 09:33 CT kidney ureter bladder (KUB) Stat Vital Signs Vital signs: Vital Signs - 8 hr 10/17/23 08:52 10/17/23 09:52 10/17/23 09:52 Temperature 97.1 F L Pulse Rate 60 Blood Pressure 171/77 H Pulse Oximetry 97 Oxygen Delivery Method 10/17/23 10:00 10/17/23 10:00 10/17/23 10:30 Temperature Pulse Rate 70 65 Blood Pressure 148/65 H Pulse Oximetry 98 94 Oxygen Delivery Method Room Air 10/17/23 10:30 10/17/23 11:03 10/17/23 11:04 Temperature Pulse Rate 66 Blood Pressure 147/69 H 140/95 H Pulse Oximetry 97 Oxygen Delivery Method 10/17/23 11:04 10/17/23 11:37 10/17/23 11:38 Temperature Pulse Rate 60 64 Blood Pressure 139/63 Pulse Oximetry 98 96 Oxygen Delivery Method Room Air 10/17/23 11:38 Temperature Pulse Rate 60 Blood Pressure Pulse Oximetry 96 Oxygen Delivery Method Medical Decision Making Lab Data Lab results reviewed: Yes I reviewed the patient's lab results. 10/17/23 09:30 10/17/23 09:30 Labs: Lab Results 10/17/23 10/17/23 Range/Units 09:15 09:30 WBC 9.1 (4.5-11.0) X10^3/uL RBC 4.52 (4.0-5.2) X10^6/uL Hgb 13.6 (12.0-16.0) g/dL Hct 39.8 (36-46) % MCV 88.2 (80-100) fL MCH 30.2 (26-34) PG MCHC 34.3 (30-36) % RDW 13.7 (11.6-14.8) % Plt Count 200 (150-400) X10^3/uL Neut % (Auto) 78.5 H (50-75) % Lymph % (Auto) 11.0 L (25-40) % [place] % (Auto) 8.6 (3-14) % Eos % (Auto) 1.3 L (2-4) % Baso % (Auto) 0.6 (0-2) % Neut # (Auto) 7200 H (8183-6571) /uL Lymph # (Auto) 1000 L (6587-5677) /uL [place] # (Auto) 800 (0-900) /uL Eos # (Auto) 100 (0-450) /uL Baso # (Auto) 100 (0-100) /uL Sodium 135 L (137-145) mmol/L Potassium 4.2 (3.4-5.1) mmol/L Chloride 106 (98-107) mmol/L Carbon Dioxide 22 (22-32) mmol/L BUN 33 H (7-17) mg/dL Creatinine 2.21 H (0.52-1.04) mg/dL Estimated GFR 22 L (>60) mL/min BUN/Creatinine Ratio 14.9 (6-22) Glucose 155 H (80-110) mg/dL Calcium 9.3 (8.4-10.2) mg/dL Urine RBC 1-5/hpf (0-5/HPF) Urine WBC None seen (0-5/HPF) Ur Squamous Epith Cells 1-5 /hpf (0-5/HPF) Urine Bacteria None seen (None) Ur Culture Indicated? Cult not indicated Vol Urine Centrifuged 10ml (spun) Urine Dip Bedside Urine Glucose Negative Bedside Urine Bilirubin - Negative Bedside Urine Ketone - Negative Urine Specific [place] 1.025 Bedside Urine Occult Blood ++ Bedside Urine pH 6.0 Bedside Urine Protein + 30 Bedside Urine Urobilinogen - Negative Bedside Urine Nitrite - Negative Bedside Urine Leukocytes - Negative Esterase Point of care testing: Urine Dip Bedside Urine Glucose Negative Bedside Urine Bilirubin - Negative Bedside Urine Ketone - Negative Urine Specific [place] 1.025 Bedside Urine Occult Blood ++ Bedside Urine pH 6.0 Bedside Urine Protein + 30 Bedside Urine Urobilinogen - Negative Bedside Urine Nitrite - Negative Bedside Urine Leukocytes - Negative Esterase Imaging Data CT scan - abdomen/pelvis: Radiologist's Impression: PROCEDURE: CT KIDNEY URETER BLADDER (KUB) INDICATIONS: L flank pain eval for stone TECHNIQUE: Axial sections were acquired from the lung bases to the pubic symphysis. Coronal and sagittal reformats were performed. For radiation dose reduction, the following was used: automated exposure control, adjustment of mA and/or kV according to patient size. COMPARISON: [facility], CT, CT KIDNEY URETER BLADDER (KUB), 05/31/2020, 10:46. FINDINGS: Image quality: Diagnostic. Lower Chest: No significant findings. URINARY: Right Kidney: No stones or hydronephrosis. Right Ureter: No hydroureter. Left Kidney: No residual parenchymal stone. [id number] hydronephrosis. Left ureter: A 3 mm stone obstructs the left ureter just above the ureterovesical junction, resulting in [id number] left hydronephrosis. Bladder: Normal wall thickness. No stones. ABDOMEN: Liver: No contour-deforming solid mass. Gallbladder: Surgically absent Biliary ducts: No biliary dilation. Pancreas: No ductal dilation. Spleen: Size is within normal limits. Adrenal Glands: No adrenal nodules. Stomach and Bowel: Normal colonic caliber, without significant wall thickening. Peritoneum: Trace free pelvic fluid. No free air. Ventral Wall: No hernia. Abdominal Nodes: No enlarged retroperitoneal or mesenteric lymph nodes. Vessels: Aorta and inferior vena cava are normal in size. PELVIS: Pelvic Organs: Uterus is surgically absent.. Pelvic Nodes: Unremarkable. Miscellaneous: No inguinal hernias are seen. Bones: Lumbar degenerative change. No lytic or blastic bony lesions. No compression fractures. IMPRESSION: 1. A 3 mm stone obstructs the distal left ureter just above the ureterovesical junction resulting in mild to moderate left hydronephrosis. 2. Remote hysterectomy and cholecystectomy. 3. Trace free pelvic fluid. MDM Narrative Medical decision making narrative: 3 mm left-sided ureteral stone causing mild hydro. No signs of urinary tract infection. She does have a RADHA. I did discuss the case with Dr. Burns on-call for [facility] who stated that if the patient does not look toxic and she was tolerating oral intake that we can continue to observe at home. There was no indication for transfer or emergent urologic consultation. Patient has pain medication at home. Will add nausea medication to her regimen as well. She was also on Flomax. Will discharge home with strict return precautions. She was given follow-up information for local urology if her symptoms did not improve. She expressed understanding and agreement with plan. Discharge Plan Departure Patient Disposition: Home Clinical Impression: Left ureteral calculus, Acute kidney injury Instructions: DI for Kidney Stones Activity Restrictions/Additional Instructions: The CT scan today did show a left-sided 3 mm ureteral stone. This is a size that you should pass it on your own. If you start to get fevers, inability to tolerate oral intake then return to the emergency department. You do need to follow up with your primary care doctor to make sure that your kidney function returns to normal once your discomfort has resolved. Prescriptions: New ondansetron 4 mg tablet,disintegrating 4 mg PO Q6H PRN (Reason: nausea and vomiting) Qty: 10 0RF No Action (DME) lancets [[employer]Touch [employer] Plus Lancet] 30 gauge misc See Rx Instructions .ROUTE .COMPLEX Qty: 200 3RF Dose Instruction: USE TO TEST BLOOD SUGAR LEVELS TWO TIMES A DAY Rx Instructions: USE TO TEST BLOOD SUGAR LEVELS TWO TIMES A DAY (DME) syringe (disposable) [BD Luer-Sherice Syringe] 3 mL syringe See Rx Instructions .Route Qty: 20 0RF Rx Instructions: As directed (DME) OneTouch Ultra Test Strip See Rx Instructions .ROUTE .COMPLEX Qty: 200 4RF Dose Instruction: USE TO TEST TWO TIMES A DAY Rx Instructions: USE TO TEST TWO TIMES A DAY Ozempic 1 mg/dose (4 mg/3 mL) pen injector 1 mg SUBCUT QWEEK Qty: 3 1RF ezetimibe [Zetia] 10 mg tablet 10 mg PO DAILY Qty: 90 1RF rosuvastatin [Crestor] 20 mg tablet 20 mg PO DAILY Qty: 90 1RF levothyroxine 50 mcg capsule 50 mcg PO DAILY Qty: 90 0RF (DME) BD Eclipse 25 gauge x 1 needle See Rx Instructions .Route Qty: 30 0RF Rx Instructions: As directed diclofenac sodium 3 % gel 1 applic topical BID Qty: 100 0RF glipizide 5 mg tablet 2.5 mg PO DAILY tamsulosin 0.4 mg capsule 0.4 mg PO BID Qty: 30 0RF oxycodone 5 mg tablet See Rx Instructions PO Q8H PRN (Reason: pain) Qty: 20 0RF Rx Instructions: Take one to two tablets every four hours as needed for kidney stone pain Referrals: Yunior Irvin MD [Physician] - Bashir Nixon MD [Primary Care Provider] - Stand Alone Forms: Patient Portal/API
[2023-10-17 09:37] LABS: Add Manual Diff / Slide Review NO; Basophils Absolute Auto 100 /uL (0-100); Basophils Percent Auto 0.6 % (0-2); Eosinophils Absolute Auto 100 /uL (0-450); Eosinophils Percent Auto 1.3 % (2-4); Hematocrit 39.8 % (36-46); Hemoglobin 13.6 g/dL (12.0-16.0); Lymphocytes Absolute Auto 1000 /uL (1100-4500); Mean Corpuscular HGB Conc 34.3 % (30-36); Mean Corpuscular Hemoglobin 30.2 PG (26-34); Mean Corpuscular Volume 88.2 fL (80-100); Monocytes Absolute Auto 800 /uL (0-900); Monocytes Percent Auto 8.6 % (3-14); Neutrophils Absolute Auto 7200 /uL (1500-7000); Neutrophils Percent Auto 78.5 % (50-75); Platelet Count 200 X10^3/uL (150-400); Red Blood Cell Count 4.52 X10^6/uL (4.0-5.2); Red Cell Distribution Width 13.7 % (11.6-14.8); White Blood Cell Count 9.1 X10^3/uL (4.5-11.0)
[2023-10-17 09:45] LABS: Urine Volume 10mL (spun)
[2023-10-17 09:47] LABS: Bacteria Urine None Seen; Culture Indicated Urine Cult Not Indicated; RBC Urine 1-5/HPF (0-5/HPF); Squamous Epithelial Cell Urine 1-5 /HPF (0-5/HPF); WBC Urine None Seen (0-5/HPF)
[2023-10-17 09:50] LABS: BUN Creatinine Ratio 14.9 (6-22); Blood Urea Nitrogen 33 mg/dL (7-17); Calcium 9.3 mg/dL (8.4-10.2); Carbon Dioxide 22 mmol/L (22-32); Chloride 106 mmol/L (98-107); Estimated Glomerular Filt Rate 22 mL/min (>60); Glucose 155 mg/dL (80-110); HEMOLYSIS < 15 (0-50); Potassium 4.2 mmol/L (3.4-5.1); Sodium 135 mmol/L (137-145)
== END 2023-10-17 11:45 | disposition home or self-care (01) ==
PROVIDERS: Emergency Provider Emergency Medicine; PCP Family Medicine
DX: N13.2 Hydronephrosis with renal and ureteral calculous obstruction (principal); N17.9 Acute kidney failure, unspecified
CPT/HCPCS: 36415; 74176; 80048; 81003; 81015; 85025; 99283; 99284

== ENCOUNTER → 2023-12-07 13:03 | Outpatient (CLI) | payer MEDICARE, OTHER, SELFPAY ==
[2023-12-07 19:39] LABS: BUN Creatinine Ratio 29.8 (6-22); Blood Urea Nitrogen 31 mg/dL (7-17); Calcium 9.2 mg/dL (8.4-10.2); Carbon Dioxide 26 mmol/L (22-32); Chloride 104 mmol/L (98-107); Estimated Glomerular Filt Rate 55 mL/min (>60); Glucose 220 mg/dL (80-110); HEMOLYSIS < 15 (0-50); Potassium 4.5 mmol/L (3.4-5.1); Sodium 136 mmol/L (137-145)
[2023-12-07 21:11] LABS: Free T4, Direct Thyroxine 0.66 ng/dL (0.78-2.19)
== END ==
PROVIDERS: PCP Family Medicine; Visit Provider Family Medicine
DX: E03.9 Hypothyroidism, unspecified (principal); R79.9 Abnormal finding of blood chemistry, unspecified; N23 Unspecified renal colic; N18.31 Chronic kidney disease, stage 3a
CPT/HCPCS: 80048; 84439; 84443

== ENCOUNTER → 2024-03-13 09:55 | Outpatient (CLI) | payer MEDICARE, OTHER, SELFPAY ==
[2024-03-13 20:25] LABS: BUN Creatinine Ratio 28.6 (6-22); Blood Urea Nitrogen 28 mg/dL (7-17); Calcium 9.5 mg/dL (8.4-10.2); Carbon Dioxide 23 mmol/L (22-32); Chloride 107 mmol/L (98-107); Cholesterol 120 mg/dL (140-199); Estimated Glomerular Filt Rate 59 mL/min (>60); Glucose 170 mg/dL (80-110); HDL Cholesterol 54 mg/dL (40-60); HEMOLYSIS < 15 (0-50); LDL Cholesterol Calculated 40 mg/dL (<100); Potassium 4.5 mmol/L (3.4-5.1); Sodium 139 mmol/L (137-145); Triglycerides 129 mg/dL (35-150)
[2024-03-13 20:26] LABS: Creatinine Urine Random 116.88 mg/dL
[2024-03-13 20:28] LABS: Microalbumin Urine Random 14.7 mg/dL (0-1.6)
[2024-03-13 20:51] LABS: Hemoglobin A1C% w Est Avg Glu 7.6 % (4.0-6.0)
[2024-03-13 20:53] LABS: TSH w/ Reflex to FT4 3.38 uIU/mL (0.47-4.68)
== END ==
PROVIDERS: PCP Family Medicine; Visit Provider Family Medicine
DX: E11.9 Type 2 diabetes mellitus without complications (principal); I10 Essential (primary) hypertension; E03.9 Hypothyroidism, unspecified; E78.2 Mixed hyperlipidemia
CPT/HCPCS: 80048; 80061; 82043; 82570; 83036; 84443

== ENCOUNTER → 2024-04-18 11:48 | Outpatient (CLI) | payer MEDICARE, OTHER, SELFPAY ==
--- NOTE | 2024-04-18 11:49 | DI.MG.S_ITS ---
UNILATERAL RIGHT DIGITAL DIAGNOSTIC MAMMOGRAM 3D/2D WITH ADDITIONAL VIEWS: 04/18/2024 CLINICAL: Additional evaluation requested from prior study. Comparison is made to exams dated: 02/22/2024 mammogram, 02/16/2023 mammogram, and 02/22/2022 mammogram - [facility]. There are scattered areas of fibroglandular density (category b / 25%-50% glandular tissue). There is a focal asymmetry in the right breast at 9 o'clock middle depth. This is not seen in additional views. No other significant masses or calcifications are seen in the breast. IMPRESSION: INCOMPLETE: NEED ADDITIONAL IMAGING EVALUATION The focal asymmetry in the right breast is indeterminate. A second look with ultrasound is recommended and will immediately follow. Based on the Tyrer Cuzick model (a risk assessment model) the patient's lifetime risk is 3.1% and her 10 year risk is 0.0%. According to the ACR, ACS, and NCCN guidelines, an annual breast MRI exam along with mammogram is recommended if the patient's lifetime risk is 20% or greater. This exam was interpreted at Station ID: [id number]. NOTE: For mammograms, a report in lay terms will be sent to the patient. Approximately 15% of breast malignancies will not be visualized mammographically. In the management of a palpable breast mass, a negative mammogram must not discourage biopsy of a clinically suspicious lesion. Electronically Signed By: Basil Mccann M.D. [facility] [place]04/18/2024 12:43:49 letter sent: Additional Imaging Needed ACR BI-RADS Category 0: Incomplete: Need Additional Imaging Evaluation
--- NOTE | 2024-04-18 11:49 | DI.US.S_ITS ---
LIMITED ULTRASOUND OF RIGHT BREAST: 04/18/2024 CLINICAL: Patient returns today to evaluate a focal asymmetry in the right breast. Comparison is made to exams dated: 04/18/2024 mammogram - [facility], 02/22/2024 mammogram, 02/16/2023 mammogram, and 02/22/2022 mammogram - [facility]. Color flow and real-time ultrasound of the right breast 9-10 o'clock region were performed. Chan scale images of the real-time examination were reviewed. There is a benign 0.4 cm x 0.4 cm x 0.1 cm oval cyst in the right breast at 10 o'clock middle depth 4 cm from the nipple. This oval cyst displays internal echoes. This correlates with mammography findings. This is stable on prior mammograms. Color flow imaging demonstrates that there is no vascularity present. No significant abnormalities were seen sonographically in the right breast 9:00. IMPRESSION: BENIGN There is no sonographic evidence of malignancy. The 0.4 cm cyst in the right breast is benign. No mass or significant cyst in the 9:00 region at site or possible focal asymmetry. A 1 year screening mammogram is recommended. This exam was interpreted at Station ID: [id number]. Electronically Signed By: Basil Mccann M.D. [facility]/:04/18/2024 12:59:05 letter sent: Normal Exam ACR BI-RADS Category 2: Benign
== END ==
PROVIDERS: PCP Family Medicine; Referring Provider Family Medicine; Visit Provider Family Medicine
DX: R92.8 Other abnormal and inconclusive findings on diagnostic imaging of breast (principal); N60.01 Solitary cyst of right breast
CPT/HCPCS: 76642; 77065; G0279

== ENCOUNTER → 2024-07-19 09:00 | Outpatient (CLI) | payer MEDICARE, OTHER, SELFPAY ==
[2024-07-19 22:03] LABS: Add Manual Diff / Slide Review NO; Basophils Absolute Auto 0 /uL (0-100); Basophils Percent Auto 0.3 % (0-2); Eosinophils Absolute Auto 100 /uL (0-450); Eosinophils Percent Auto 1.4 % (2-4); Hematocrit 40.2 % (36-46); Hemoglobin 13.6 g/dL (12.0-16.0); Lymphocytes Absolute Auto 1200 /uL (1100-4500); Lymphocytes Percent Auto 15.2 % (25-40); Mean Corpuscular HGB Conc 33.8 % (30-36); Mean Corpuscular Hemoglobin 30.9 PG (26-34); Mean Corpuscular Volume 91.5 fL (80-100); Monocytes Absolute Auto 500 /uL (0-900); Monocytes Percent Auto 6.8 % (3-14); Neutrophils Absolute Auto 5900 /uL (1500-7000); Neutrophils Percent Auto 76.3 % (50-75); Platelet Count 211 X10^3/uL (150-400); Red Blood Cell Count 4.39 X10^6/uL (4.0-5.2); Red Cell Distribution Width 13.7 % (11.6-14.8); White Blood Cell Count 7.8 X10^3/uL (4.5-11.0)
[2024-07-19 22:09] LABS: BUN Creatinine Ratio 30.2 (6-22); Blood Urea Nitrogen 29 mg/dL (7-17); Calcium 9.4 mg/dL (8.4-10.2); Carbon Dioxide 24 mmol/L (22-32); Chloride 107 mmol/L (98-107); Estimated Glomerular Filt Rate > 60 mL/min (>60); Glucose 162 mg/dL (80-110); HEMOLYSIS < 15 (0-50); Potassium 4.2 mmol/L (3.4-5.1); Sodium 137 mmol/L (137-145)
[2024-07-19 22:44] LABS: TSH w/ Reflex to FT4 2.54 uIU/mL (0.47-4.68)
[2024-07-19 22:55] LABS: Creatinine Urine Random 152.29 mg/dL
[2024-07-19 23:28] LABS: Hemoglobin A1C% w Est Avg Glu 8.3 % (4.0-6.0)
== END ==
PROVIDERS: PCP Family Medicine; Visit Provider Family Medicine
DX: E11.29 Type 2 diabetes mellitus with other diabetic kidney complication (principal); R80.9 Proteinuria, unspecified; E03.9 Hypothyroidism, unspecified; I12.9 Hypertensive chronic kidney disease with stage 1 through stage 4 chronic kidney disease, or unspecified chronic kidney disease; N18.31 Chronic kidney disease, stage 3a; E78.2 Mixed hyperlipidemia
CPT/HCPCS: 80048; 82043; 82570; 83036; 84443; 85025

== ENCOUNTER → 2024-10-22 09:01 | Outpatient (CLI) | payer MEDICARE, OTHER, SELFPAY ==
[2024-10-22 19:19] LABS: Add Manual Diff / Slide Review NO; Basophils Absolute Auto 0 /uL (0-100); Basophils Percent Auto 0.4 % (0-2); Eosinophils Absolute Auto 200 /uL (0-450); Eosinophils Percent Auto 3.1 % (2-4); Hematocrit 38.3 % (36-46); Hemoglobin 13.2 g/dL (12.0-16.0); Lymphocytes Absolute Auto 1400 /uL (1100-4500); Lymphocytes Percent Auto 27.5 % (25-40); Mean Corpuscular HGB Conc 34.4 % (30-36); Mean Corpuscular Hemoglobin 31.3 PG (26-34); Mean Corpuscular Volume 90.9 fL (80-100); Monocytes Absolute Auto 500 /uL (0-900); Monocytes Percent Auto 10.4 % (3-14); Neutrophils Absolute Auto 2900 /uL (1500-7000); Neutrophils Percent Auto 58.6 % (50-75); Platelet Count 188 X10^3/uL (150-400); Red Blood Cell Count 4.21 X10^6/uL (4.0-5.2); Red Cell Distribution Width 13.1 % (11.6-14.8)
[2024-10-22 19:21] LABS: HEMOLYSIS < 15 (0-50)
[2024-10-22 19:27] LABS: Alanine Aminotransferase 26 IU/L (<35); Albumin 3.8 g/dL (3.5-5.0); Albumin Globulin Ratio 1.3 (1.0-2.8); Alkaline Phosphatase 66 U/L (38-126); Aspartate Aminotransferase 33 IU/L (14-36); Bilirubin Total 1.3 mg/dL (0.2-1.3); Blood Urea Nitrogen 35 mg/dL (7-17); Calcium 9.4 mg/dL (8.4-10.2); Carbon Dioxide 21 mmol/L (22-32); Chloride 108 mmol/L (98-107); Cholesterol 113 mg/dL (140-199); Estimated Glomerular Filt Rate 54 mL/min (>60); Glucose 170 mg/dL (70-99); HDL Cholesterol 47 mg/dL (40-60); LDL Cholesterol Calculated 35 mg/dL (<100); Potassium 4.8 mmol/L (3.4-5.1); Sodium 137 mmol/L (137-145); Total Protein 6.8 g/dL (6.3-8.2); Triglycerides 153 mg/dL (35-150)
[2024-10-22 19:33] LABS: Hemoglobin A1C% w Est Avg Glu 7.9 % (4.0-6.0)
[2024-10-22 20:30] LABS: Vitamin B12 677 pg/mL (239-931)
== END ==
PROVIDERS: PCP Family Medicine; Visit Provider Family Medicine
DX: I12.9 Hypertensive chronic kidney disease with stage 1 through stage 4 chronic kidney disease, or unspecified chronic kidney disease (principal); N18.31 Chronic kidney disease, stage 3a; E78.2 Mixed hyperlipidemia; E03.9 Hypothyroidism, unspecified; E11.29 Type 2 diabetes mellitus with other diabetic kidney complication; R80.9 Proteinuria, unspecified
CPT/HCPCS: 80053; 80061; 82607; 83036; 85025

== ENCOUNTER → 2025-03-28 10:26 | Outpatient (CLI) | payer MEDICARE, OTHER, SELFPAY ==
[2025-03-28 19:04] LABS: Add Manual Diff / Slide Review NO; Hematocrit 39.2 % (36-46); Hemoglobin 13.6 g/dL (12.0-16.0); Lymphocytes Absolute Auto 1600 /uL (1100-4500); Mean Corpuscular HGB Conc 34.7 % (30-36); Mean Corpuscular Hemoglobin 31.2 PG (26-34); Mean Corpuscular Volume 90.0 fL (80-100); Platelet Count 228 X10^3/uL (150-400)
[2025-03-28 19:06] LABS: Blood Urea Nitrogen 25 mg/dL (7-17); Calcium 9.5 mg/dL (8.4-10.2); Carbon Dioxide 25 mmol/L (22-32); Chloride 104 mmol/L (98-107); Cholesterol 123 mg/dL (140-199); Estimated Glomerular Filt Rate > 60 mL/min (>60); Glucose 155 mg/dL (70-99); HDL Cholesterol 59 mg/dL (40-60); HEMOLYSIS < 15 (0-50); Potassium 4.9 mmol/L (3.4-5.1); Sodium 137 mmol/L (137-145); Triglycerides 177 mg/dL (35-150)
[2025-03-28 19:29] LABS: Hemoglobin A1C% w Est Avg Glu 7.5 % (4.0-6.0)
[2025-03-28 19:38] LABS: TSH w/ Reflex to FT4 0.64 uIU/mL (0.47-4.68)
[2025-03-28 19:43] LABS: Microalbumi Creatinin Ratio Ur 55.0 ug/mg CR (<30)
== END ==
PROVIDERS: PCP Family Medicine; Visit Provider Family Medicine
DX: N18.31 Chronic kidney disease, stage 3a (principal); E78.2 Mixed hyperlipidemia; E03.9 Hypothyroidism, unspecified; I10 Essential (primary) hypertension; E11.29 Type 2 diabetes mellitus with other diabetic kidney complication; R80.9 Proteinuria, unspecified
CPT/HCPCS: 80048; 80061; 82043; 82570; 83036; 84443; 85025

== ENCOUNTER → 2025-04-08 08:53 | Outpatient (CLI) | payer MEDICARE, OTHER, SELFPAY ==
[2025-04-12 15:36] LABS: ANA Screen, IFA Negative (.)
== END ==
PROVIDERS: PCP Family Medicine; Visit Provider Family Medicine
DX: M18.11 Unilateral primary osteoarthritis of first carpometacarpal joint, right hand (principal); M47.816 Spondylosis without myelopathy or radiculopathy, lumbar region; M19.041 Primary osteoarthritis, right hand; M19.042 Primary osteoarthritis, left hand
CPT/HCPCS: 86038